=== PATIENT | female | born 1930 | race Caucasian/White ===

== ENCOUNTER 2018-07-01 14:01 | Inpatient (IN) ==
[2018-07-01] MEDS ORDERED: Sod Chloride 0.9% Inj 1,000 ML IV.SIG SCH ×2 (14:30→19:00)
--- NOTE | 2018-07-01 15:02 | XR ---
EXAM DATE: 07/01/2018 2:50 PM EDT AGE/SEX: 88 years / Female INDICATIONS: Short of breath and weakness. CLINICAL DATA: This is the patient's initial encounter. Patient reports that signs and symptoms have been present for 2 days and indicates a pain score of 0/10. MEDICAL/SURGICAL HISTORY: . Cerebral vascular accident. None. COMPARISON: No prior exams available for comparison. FINDINGS: A single AP view of the chest demonstrates the lungs to be symmetrically hypoinflated without evidenc e of mass, infiltrate or effusion. The cardiomediastinal contours are unremarkable. Osseous structu res are intact. CONCLUSION: The lungs are hypoinflated but grossly clear. No acute abnormality seen. Electronically signed by: Theresa Cuellar MD 07/01/2018 3:00 PM EDT
--- NOTE | 2018-07-01 15:15 | CT ---
EXAM DATE: 07/01/2018 3:09 PM EDT AGE/SEX: 88 years / Female INDICATIONS: Altered mental status. Possible syncopal episode today. CLINICAL DATA: This is the patient's initial encounter. Patient reports that signs and symptoms have been present for 1 day and indicates a pain score of 0/10. MEDICAL/SURGICAL HISTORY: Cardiovascular disease. Stroke. None. RADIATION DOSE: 56.35 CTDI (mGy) COMPARISON: No prior exams available for comparison. TECHNIQUE: CT of the head without contrast. Using automated exposure control and adjustment of the mA and/or kV according to patient size, radiation dose was kept as low as reasonably achievable to ob tain optimal diagnostic quality images. DICOM format image data is available electronically for revi ew and comparison. FINDINGS: Cerebrum: The ventricles are normal for age. No evidence of midline shift, mass lesion, hemorrhage or acute infarction. No extraaxial fluid collections are seen. Extensive white matter atrophic roth es are seen with periventricular hypointensities likely reflecting chronic small vessel ischemic reed ge. Posterior Fossa: The cerebellum and brainstem are intact. The 4th ventricle is midline. The cerebe llopontine angle is unremarkable. Extracranial: The visualized portion of the orbits is intact. Skull: The calvaria is intact. No evidence of skull fracture. CONCLUSION: 1. No acute abnormality. Extensive white matter atrophic changes. . Electronically signed by: Theresa Cuellar MD 07/01/2018 3:14 PM EDT
[2018-07-01 15:25] LABS: Activated Partial Thrombo Time 20.8 sec (24.3-30.1); INR 1.1 Ratio
[2018-07-01 15:26] LABS: Baso # (Auto) 0.1 th/mm3 (0.0-0.2); Baso % (Auto) 0.5 % (0.0-2.0); Eos # (Auto) 0.1 th/mm3 (0.0-0.4); Eos % (Auto) 1.1 % (0.0-4.0); Hematocrit 36.8 % (35.0-46.0); Hemoglobin 11.8 gm/dL (11.6-15.3); Lymph # (Auto) 3.7 th/mm3 (1.0-4.8); Mean Corpuscular HGB Conc 31.9 % (32.0-36.0); Mean Corpuscular Hemoglobin 31.4 pg (27.0-34.0); Mean Corpuscular Volume 98.5 fL (80.0-100.0); Mean Platelet Volume 9.4 fL (7.0-11.0); Mono # (Auto) 0.4 th/mm3 (0.0-0.9); Neut # (Auto) 6.3 th/mm3 (1.8-7.7); Neut % (Auto) 59.4 % (16.0-70.0); Platelet Count 174 th/mm3 (150-450); Red Blood Count 3.74 mil/mm3 (4.00-5.30); Red Cell Distribution Width 20.1 % (11.6-17.2); White Blood Count 10.7 th/mm3 (4.0-11.0)
[2018-07-01 15:30] LABS: Prothrombin Time 10.7 sec (9.8-11.6)
[2018-07-01 16:02] LABS: Alanine Aminotransferase 83 U/L (10-53); Albumin 3.3 g/dL (3.4-5.0); Alkaline Phosphatase 123 U/L (45-117); Anion Gap 15 meq/L (5-15); Aspartate Aminotransferase 173 U/L (15-37); Blood Urea Nitrogen 20 mg/dL (7-18); Carbon Dioxide 19.9 meq/L (21.0-32.0); Chloride 109 meq/L (98-107); Glomerular Filtration Rate 41 mL/min (>89); Glucose,Random 232 mg/dL (74-106); Potassium 3.5 meq/L (3.5-5.1); Sodium 144 meq/L (136-145); Total Protein 7.3 g/dL (6.4-8.2)
[2018-07-01 16:08] LABS: Creatine Kinase 44 U/L (26-192)
[2018-07-01 16:29] LABS: Bilirubin,Urine Negative (Negative); Clarity,Urine Hazy (Clear); Color,Urine Yellow (Yellw/Straw); Glucose,Urine (UA) 50 mg/dL (Negative); Leukocyte Esterase,Urine Negative (Negative); Mucus,Urine Few /lpf (Occasional); Nitrite,Urine Negative (Negative); Specific Gravity,Urine 1.016 (1.002-1.035); Squamous Epithelial Cell,Urine <1 /hpf (0-5)
--- NOTE | 2018-07-01 19:08 | ED ---
HPI General Chief Complaint: Syncope Stated Complaint: Medical Time Seen by Provider: 07/01/18 14:24 Source: patient and family Mode of arrival: EMS Limitations: no limitations History of Present Illness HPI narrative: 88-year-old female was brought in by EMS for syncope. Patient states that she was outside all day today and got into a hot tub this afternoon. Patient states that she had a syncopal episode after getting out of the hot tub this afternoon. Patient denies any injury from the syncope episode. Patient denies any headache. Patient denies any chest pain or shortness of breath. Patient denies abdominal pain. Patient denies any focal weakness or numbness of extremity. Patient status post CVA in the past. Patient has other medical problems she does not know the nature of her medical problems. Patient states that she on a lot of medications she does not know the name of the medications. Patient states that her blood pressure has been low recently. Patient states that her blood sugar has been high recently however she does not like to take the medication for that. Patient denies any alcohol or drug abuse. Patient states that she has not been drinking all day today. Patient states that she had some small amount of tea this morning. Patient did not eat breakfast or lunch today. complaint: loss of consciousness Onset (ago): minute(s) Prodromal symptoms: none Witnessed: yes - by bystander Context: standing up Injuries sustained associated with event: none Current symptoms: none Treatments prior to arrival: none Related Data Home Medications Medication Instructions Recorded Confirmed aspirin [Aspir-81] 81 mg PO DAILY 07/01/18 07/01/18 cholecalciferol (vitamin D3) 07/01/18 [Vitamin D3] famotidine [Pepcid] 20 mg PO DAILY 07/01/18 07/01/18 folic acid 1 mg PO DAILY 07/01/18 07/01/18 levothyroxine 50 mcg PO DAILY 07/01/18 07/01/18 mirtazapine 15 mg PO DAILY 07/01/18 07/01/18 pantoprazole [Protonix] 40 mg PO DAILY 07/01/18 07/01/18 potassium chloride 8 meq PO DAILY 07/01/18 07/01/18 prednisone 07/01/18 Allergies Allergy/AdvReac Type Severity Reaction Status Date / Time Penicillins Allergy Severe Rash Verified 07/01/18 14:28 Review of Systems ROS: all other systems reviewed are negative PMFSH Medical History Medical History CVA (cerebral vascular accident) (Acute) Heart murmur (Acute) Social History Social History Substance History: No History of Abuse Smoking Status: Never smoker How Often Do You Have a Drink Containing Alcohol: Monthly or less Recent Travel in [facility] within the Last 8 Weeks: Yes Recent Out of Country Travel within the Last 8 Weeks: No Immunization History Tetanus Immunization: <5 Years Exam Narrative Exam Narrative: GENERAL: Well-nourished, well-developed patient. SKIN: Focused skin assessment warm/dry. HEAD: Normocephalic. EYES: No scleral icterus. No injection or drainage. NECK: Supple, trachea midline. No JVD or lymphadenopathy. CARDIOVASCULAR: Regular rate and rhythm without murmurs, gallops, or rubs. RESPIRATORY: Breath sounds equal bilaterally. No accessory muscle use. GASTROINTESTINAL: Abdomen soft, non-tender, nondistended. MUSCULOSKELETAL: No cyanosis, or edema. BACK: Nontender without obvious deformity. No CVA tenderness. Neurologic exam normal. Course Initial Documented Vital Signs Temperature 97.7 F 07/01/18 14:28 Pulse Rate 128 H 07/01/18 14:28 Respiratory Rate 20 07/01/18 14:28 Blood Pressure 115/85 07/01/18 14:28 Pulse Oximetry 86 L 07/01/18 14:28 Last Documented Vital Signs Temperature 97.7 F 07/01/18 14:28 Pulse Rate 128 H 07/01/18 14:28 Respiratory Rate 20 07/01/18 14:28 Blood Pressure 115/85 07/01/18 14:28 Pulse Oximetry 86 L 07/01/18 14:28 Sign Out Sign Out Data: Patient Sign Out occurred on 07/01/18 at 20:02. Patient's care was discussed, and care was transferred from Siddhartha Cabrales to Otis Granados MD. Sign Out Comment: Check orthostatic vital signs prior to discharge. Patient with syncope and orthostatic hypotension. Patient was given 2 L IV fluid. Last updated by Siddhartha Cabrales MD at 07/01/18 19:19 Post-Handoff Eval: The patient was evaluated by Dr. Cabrales and signed out to me at approximately 7: 00 PM at the beginning of my shift to follow-up with repeat vital signs after a second liter of normal saline was given to the patient. On my assessment the patient is awake and alert and is feeling well. She is normotensive and would like to go home. She apparently had a syncopal episode today after being taken out of the hot tub. She is here with her daughter and they are from out of town , returning to their home state tomorrow. Because of this they would like to go home. Basic labs and imaging studies are essentially unremarkable. She actually has an appointment with a hospice volunteer in 3 days. They understand that there are risks to being discharged and I prefer that the patient be admitted for overnight observation for further evaluation of her syncopal episode, however they prefer to go home. Patient will be discharged home with strict return instructions. With the patient and the patient's daughter verbalized understanding and agreement with plan. Upon attempting to discharge the patient she had a brief syncopal episode while transferring into the wheelchair. After this episode she has agreed to stay overnight for further telemetry monitoring and likely echocardiogram. Case discussed with medical residents. The patient will be admitted to their service under Dr. Jiménez. Medical Decision Making MDM Narrative Medical decision making narrative: 88-year-old female with syncope. Patient has not eaten much or drinking much ordered today. Patient did not injure himself during the syncopal episode. Patient's positive orthostatic hypotension. Normal saline solution 2 L IV bolus given. Medical Screen Exam Complete: Yes Emergency Medical Condition: Yes Differential Diagnosis Differential Diagnosis: Differential diagnosis including orthostatic syncope, vasovagal reaction, dehydration, electrolyte imbalance, TIA, CVA. Lab Data Result diagrams: 07/01/18 14:45 07/01/18 14:45 Lab Results 07/01/18 07/01/18 07/01/18 Range/Units 14:45 14:45 14:45 WBC 10.7 (4.0-11.0) th/mm3 RBC 3.74 L (4.00-5.30) mil/mm3 Hgb 11.8 (11.6-15.3) gm/dL Hct 36.8 (35.0-46.0) % MCV 98.5 (80.0-100.0) fL MCH 31.4 (27.0-34.0) pg MCHC 31.9 L (32.0-36.0) % RDW 20.1 H (11.6-17.2) % Plt Count 174 (150-450) th/mm3 MPV 9.4 (7.0-11.0) fL Neut % (Auto) 59.4 (16.0-70.0) % Lymph % (Auto) 35.0 (9.0-44.0) % Gregory % (Auto) 4.0 (0.0-8.0) % Eos % (Auto) 1.1 (0.0-4.0) % Baso % (Auto) 0.5 (0.0-2.0) % Neut # (Auto) 6.3 (1.8-7.7) th/mm3 Lymph # (Auto) 3.7 (1.0-4.8) th/mm3 Gregory # (Auto) 0.4 (0.0-0.9) th/mm3 Eos # (Auto) 0.1 (0.0-0.4) th/mm3 Baso # (Auto) 0.1 (0.0-0.2) th/mm3 WBC Differential . Differential Comment Auto diff final PT 10.7 (9.8-11.6) sec INR 1.1 Ratio APTT 20.8 L (24.3-30.1) sec Sodium 144 (136-145) meq/L Potassium 3.5 (3.5-5.1) meq/L Chloride 109 H (98-107) meq/L Carbon Dioxide 19.9 L (21.0-32.0) meq/L Anion Gap 15 (5-15) meq/L BUN 20 H (7-18) mg/dL Creatinine 1.24 H (0.50-1.00) mg/dL Estimated GFR 41 L (>89) mL/min Random Glucose 232 H (74-106) mg/dL Calcium 8.0 L (8.5-10.1) mg/dL Total Bilirubin 0.7 (0.2-1.0) mg/dL AST 173 H (15-37) U/L ALT 83 H (10-53) U/L Alkaline Phosphatase 123 H (45-117) U/L Total Creatine Kinase 44 (26-192) U/L Troponin I Less than 0.02 L (0.02-0.05) ng/mL Total Protein 7.3 (6.4-8.2) g/dL Albumin 3.3 L (3.4-5.0) g/dL TSH 1.950 (0.358-3.740) uIU/mL Urine Color (Yellw/Straw) Urine Clarity (Clear) Urine pH (5.0-8.5) Ur Specific Witt (1.002-1.035) Urine Protein (Neg-Trace) mg/dL Urine Glucose (UA) (Negative) mg/dL Urine Ketones (Negative) mg/dL Urine Occult Blood (Negative) Urine Nitrate (Negative) Urine Bilirubin (Negative) Urine Urobilinogen (Less than 2) mg/dL Ur Leukocyte Esterase (Negative) Urine WBC (0-5) /hpf Ur Squamous Epith Cells (0-5) /hpf Urine Mucus (Occasional) /lpf Micro UA Comment Ur Microscopic Review Urine Culture Comments 07/01/18 Range/Units 16:15 WBC (4.0-11.0) th/mm3 RBC (4.00-5.30) mil/mm3 Hgb (11.6-15.3) gm/dL Hct (35.0-46.0) % MCV (80.0-100.0) fL MCH (27.0-34.0) pg MCHC (32.0-36.0) % RDW (11.6-17.2) % Plt Count (150-450) th/mm3 MPV (7.0-11.0) fL Neut % (Auto) (16.0-70.0) % Lymph % (Auto) (9.0-44.0) % Gregory % (Auto) (0.0-8.0) % Eos % (Auto) (0.0-4.0) % Baso % (Auto) (0.0-2.0) % Neut # (Auto) (1.8-7.7) th/mm3 Lymph # (Auto) (1.0-4.8) th/mm3 Gregory # (Auto) (0.0-0.9) th/mm3 Eos # (Auto) (0.0-0.4) th/mm3 Baso # (Auto) (0.0-0.2) th/mm3 WBC Differential Differential Comment PT (9.8-11.6) sec INR Ratio APTT (24.3-30.1) sec Sodium (136-145) meq/L Potassium (3.5-5.1) meq/L Chloride (98-107) meq/L Carbon Dioxide (21.0-32.0) meq/L Anion Gap (5-15) meq/L BUN (7-18) mg/dL Creatinine (0.50-1.00) mg/dL Estimated GFR (>89) mL/min Random Glucose (74-106) mg/dL Calcium (8.5-10.1) mg/dL Total Bilirubin (0.2-1.0) mg/dL AST (15-37) U/L ALT (10-53) U/L Alkaline Phosphatase (45-117) U/L Total Creatine Kinase (26-192) U/L Troponin I (0.02-0.05) ng/mL Total Protein (6.4-8.2) g/dL Albumin (3.4-5.0) g/dL TSH (0.358-3.740) uIU/mL Urine Color Yellow (Yellw/Straw) Urine Clarity Hazy H (Clear) Urine pH 5.0 (5.0-8.5) Ur Specific Witt 1.016 (1.002-1.035) Urine Protein 100 H (Neg-Trace) mg/dL Urine Glucose (UA) 50 (Negative) mg/dL Urine Ketones Negative (Negative) mg/dL Urine Occult Blood Negative (Negative) Urine Nitrate Negative (Negative) Urine Bilirubin Negative (Negative) Urine Urobilinogen 2.0 H (Less than 2) mg/dL Ur Leukocyte Esterase Negative (Negative) Urine WBC 1 (0-5) /hpf Ur Squamous Epith Cells <1 (0-5) /hpf Urine Mucus Few H (Occasional) /lpf Micro UA Comment Cath-culture not ind Ur Microscopic Review Not Reportable Urine Culture Comments Cath-cult not ind Imaging Data Radiologist's impression: Chest X-Ray 07/01/18 14:28 CONCLUSION: The lungs are hypoinflated but grossly clear. No acute abnormality seen. Head CT 07/01/18 14:28 CONCLUSION: 1. No acute abnormality. Extensive white matter atrophic changes. . Discharge Plan Discharge Disposition Patient Disposition: 30 Still Patient Discharge Condition Condition: Stable Discharge Details Diagnosis: Syncope Physicians Team ED Provider: Otis Granados Primary Care Provider: UNKNOWN, Attending Provider: Vijaya Jiménez Discharge Interventions Interventions: ED Discharge Assessment Last Done: 07/01/18 21:06 Vital Signs Last Done: 07/01/18 14:28 Status ED Status: Admitted Observation Patient
--- NOTE | 2018-07-01 22:05 | P.HPFP ---
History of Present Illness Primary Care Physician: UNKNOWN Chief Complaint: Syncope History of Present Illness: 88 year old F on vacation from [place] with history of CVA x3, most recently 1 month ago, hypothyroidism and rheumatoid arthritis, who presented to the ED for syncopal episode this afternoon just after getting out of a hot tub. Per patient , she felt faint and lightheaded before passing out. She is unsure of how long she lost consciousness, but states it was witnessed. No fall or head trauma. Patient was to be discharged from the ED, but just prior to leaving experienced another syncopal episode while transferring from bed to wheelchair, stating that she felt weak all over and nauseated. Denies current headache, lightheadedness, nausea, vomiting, rapid heart rate, CP, shortness of breath, numbness or tingling. Denies recent fevers, sinus pain, nasal congestion, runny nose, sore throat, diarrhea or dysuria. Patient has a chronic urinary incontinence. Patient is vacationing in [place], from [place] and is adamant that she cannot miss her flight back home tomorrow at 11AM. Patient is willing to stay in the hospital overnight for further observation and testing, but notes that she will be leaving in time for her flight. She is scheduled to she her PCP, Dr. Agus Aleman and director craft center in [place] in the coming week. Per patient, she is supposed to be getting worked up for possible unspecified heart murmur. She has a history of CVA x3 with, most recently 1 month ago. She states that she experienced significant weakness in bilateral upper and lower extremities and slurred speech. Underwent extensive PT/OT/speech therapy following most recent stroke. She states that today's symptoms do not feel like past CVA. 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 Update: 07/01/18 at 23:15pm Paged by [employer] who stated that patient is refusing to undergo carotid US. Spoke to patient, who states that she "just doesn't think she needs any of this done", however she is agreeable to stay in the hospital overnight. She states that she "has a history of arthritis", has gotten imaging of the neck 2 times in the last year back in [place] and does not believe that her insurance will pay for this testing. She states that she is apparently scheduled to get similar testing done at next doctor's appointment, therefore doesn't need imaging of her neck. I explained to her that the carotid ultrasound is to evaluate the blood vessels of the neck for plaques or clot that could be causing syncopal episodes, rather than structural components of the neck associated with arthritis. Patient voiced understanding about risks and benefits of getting carotid US, but continues to decline examination at this time. She continues to be concerned about missing her flight tomorrow morning states that she "will be getting all of this testing done at her upcoming doctor 's appointments, so she doesn't need it done in the hospital today". She states that she is agreeable to further blood testing and EKG as necessary, but also states that she does not want to be bothered for the rest of the night. - Diagnosis (1) Syncope (2) ARGELIA (acute kidney injury) (3) Hypothyroidism (4) History of CVA (cerebrovascular accident) (5) History of cardiac murmur (6) History of gastroesophageal reflux (GERD) (7) Nutrition, metabolism, and development symptoms (8) DVT prophylaxis Review of Systems Constitutional: Reports weakness (associated with syncopal episodes, now resolved), Denies chills, Denies fever(s) Eyes: Reports requires corrective lenses, Denies change in vision Ears, Nose, Mouth, and Throat: Denies headache(s), Denies nasal congestion, Denies nasal discharge, Denies sinus pain, Denies sinus pressure, Denies sore throat Cardiovascular: Reports fainting, Denies chest pain, Denies fast heart rate, Denies irregular heart rhythm, Denies shortness of breath Respiratory: Denies cough, Denies shortness of breath Gastrointestinal: Reports nausea, Denies abdominal pain, Denies constipation, Denies loose stools, Denies vomiting Genitourinary: Reports urinary incontinence (chronic), Denies blood in urine, Denies painful urination Musculoskeletal: Reports body aches (due to arthritis) Neurologic: Denies abnormal speech, Denies tingling/numbness/burning sensations PMFSH - History History 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, 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 - Medical History Medical History: Medical History (Last Updated 07/02/18 @ 03:14 by Laura Ervin DO, R1) CVA (cerebral vascular accident) Heart murmur History of hysterectomy - Surgical History Surgical History: Surgical History (Last Updated 07/02/18 @ 03:14 by Laura Ervin DO, R1) History of cholecystectomy - Tobacco History Smoking Status: Never smoker - Alcohol History How Often Do You Have a Drink Containing Alcohol: Monthly or less - Substance Use History Substance History: No History of Abuse - Travel History Recent Travel in the [place] Within the Last 8 Weeks: Yes Recent Travel Out of the Country Within the Last 8 Weeks: No - Immunization History Tetanus Immunization: <5 Years Medications and Allergies Active Medications: Active Medications Sodium Chloride (Ns Inj) 1,000 mls @ 0 mls/hr IV.SIG BOLUS ARNULFO Sodium Chloride (Ns Inj) 1,000 mls @ 0 mls/hr IV.SIG BOLUS ARNULFO Allergies Allergy/AdvReac Type Severity Reaction Status Date / Time Penicillins Allergy Severe Rash Verified 07/01/18 14:28 Home Medications Medication Instructions Recorded Confirmed Type aspirin [Aspir-81] 81 mg PO DAILY 07/01/18 07/01/18 History cholecalciferol (vitamin D3) 07/01/18 History [Vitamin D3] famotidine [Pepcid] 20 mg PO DAILY 07/01/18 07/01/18 History folic acid 1 mg PO DAILY 07/01/18 07/01/18 History levothyroxine 50 mcg PO DAILY 07/01/18 07/01/18 History mirtazapine 15 mg PO DAILY 07/01/18 07/01/18 History pantoprazole [Protonix] 40 mg PO DAILY 07/01/18 07/01/18 History potassium chloride 8 meq PO DAILY 07/01/18 07/01/18 History prednisone 07/01/18 History Exam Vital signs: Vital Signs 07/01/18 14:28 Temperature 97.7 F Pulse Rate 128 H Respiratory Rate 20 Blood Pressure 115/85 Pulse Oximetry 86 L Intake & Output 07/01/18 07/01/18 07/02/18 06:59 18:59 06:59 Weight 55.792 kg Narrative: GENERAL: 80-year-old female lying comfortably in bed in [facility]. HEENT: NCAT, EOMI, PERRLA. no scleral icterus, or conjunctival injection. MMM. Airway patent. NECK: Supple, no meningeal signs. No JVD, or carotid bruits. No LAD. CV: Irregular rhythm. S1 S2. CHEST/PULM: CTAB. No crackles, wheezes or rhonchi. ABD/GI: +BS in all 4 quadrants. Soft, nontender, and nondistended. EXT: No significant edema. NEURO: A&O 3. Follows all commands. Normal muscle tone. Muscle strength 5/5 in upper extremities, 4+/5 in bilateral lower extremities due to pain from arthritis. Cranial nerves grossly intact. SKIN: No rashes, no jaundice. PSYCH: Mood and affect are appropriate. Speech fluent. Does not appear to respond to internal stimuli. Results - Labs Result diagrams: 07/01/18 14:45 07/01/18 14:45 Abnormal lab results 07/01/18 07/01/18 07/01/18 Range/Units 14:45 14:45 14:45 RBC 3.74 L (4.00-5.30) mil/mm3 MCHC 31.9 L (32.0-36.0) % RDW 20.1 H (11.6-17.2) % APTT 20.8 L (24.3-30.1) sec Chloride 109 H (98-107) meq/L Carbon Dioxide 19.9 L (21.0-32.0) meq/L BUN 20 H (7-18) mg/dL Creatinine 1.24 H (0.50-1.00) mg/dL Estimated GFR 41 L (>89) mL/min Random Glucose 232 H (74-106) mg/dL Calcium 8.0 L (8.5-10.1) mg/dL AST 173 H (15-37) U/L ALT 83 H (10-53) U/L Alkaline Phosphatase 123 H (45-117) U/L Troponin I Less than 0.02 L (0.02-0.05) ng/mL Albumin 3.3 L (3.4-5.0) g/dL Urine Clarity (Clear) Urine Protein (Neg-Trace) mg/dL Urine Urobilinogen (Less than 2) mg/dL Urine Mucus (Occasional) /lpf 07/01/18 Range/Units 16:15 RBC (4.00-5.30) mil/mm3 MCHC (32.0-36.0) % RDW (11.6-17.2) % APTT (24.3-30.1) sec Chloride (98-107) meq/L Carbon Dioxide (21.0-32.0) meq/L BUN (7-18) mg/dL Creatinine (0.50-1.00) mg/dL Estimated GFR (>89) mL/min Random Glucose (74-106) mg/dL Calcium (8.5-10.1) mg/dL AST (15-37) U/L ALT (10-53) U/L Alkaline Phosphatase (45-117) U/L Troponin I (0.02-0.05) ng/mL Albumin (3.4-5.0) g/dL Urine Clarity Hazy H (Clear) Urine Protein 100 H (Neg-Trace) mg/dL Urine Urobilinogen 2.0 H (Less than 2) mg/dL Urine Mucus Few H (Occasional) /lpf Short CBC 07/01/18 Range/Units 14:45 WBC 10.7 (4.0-11.0) th/mm3 Hgb 11.8 (11.6-15.3) gm/dL Hct 36.8 (35.0-46.0) % Plt Count 174 (150-450) th/mm3 BMP 07/01/18 14:45 Sodium 144 Potassium 3.5 Chloride 109 H Carbon Dioxide 19.9 L BUN 20 H Creatinine 1.24 H Calcium 8.0 L Cardiac Enzymes 07/01/18 Range/Units 14:45 Total Creatine Kinase 44 (26-192) U/L Troponin I Less than 0.02 L (0.02-0.05) ng/mL Liver Function 07/01/18 Range/Units 14:45 Total Bilirubin 0.7 (0.2-1.0) mg/dL AST 173 H (15-37) U/L ALT 83 H (10-53) U/L Alkaline Phosphatase 123 H (45-117) U/L Albumin 3.3 L (3.4-5.0) g/dL Urine 07/01/18 Range/Units 16:15 Urine Color Yellow (Yellw/Straw) Urine Clarity Hazy H (Clear) Urine pH 5.0 (5.0-8.5) Ur Specific [place] 1.016 (1.002-1.035) Urine Protein 100 H (Neg-Trace) mg/dL Urine Glucose (UA) 50 (Negative) mg/dL - Imaging Impressions Chest X-Ray 07/01/18 14:28 CONCLUSION: The lungs are hypoinflated but grossly clear. No acute abnormality seen. Head CT 07/01/18 14:28 CONCLUSION: 1. No acute abnormality. Extensive white matter atrophic changes. . Caprini VTE Risk Assessment Caprini VTE Risk Assessment: Moderate/High Risk (score >= 2) Caprini Risk Assessment Model: Point Value = 1 Point Value = 2 Point Value = 3 Point Value = 5 Age 41-60 Minor surgery BMI > 25 kg/m2 Swollen legs Varicose veins or History of unexplained or recurrent spontaneous Oral contraceptives or hormone replacement Sepsis (< 1 month) Serious lung disease, including pneumonia (< 1 month) Abnormal pulmonary function Acute myocardial infarction Congestive heart failure (< 1 month) History of inflammatory bowel disease Medical patient at bed rest Age 61-74 Arthroscopic surgery Major open surgery (> 45 min) Laparoscopic surgery (> 45 min) Malignancy Confined to bed (> 72 hours) Immobilizing plaster cast Central venous access Age >= 75 History of VTE Family history of VTE Factor V Leiden Prothrombin [id number] Lupus anticoagulant Anticardiolipin antibodies Elevated serum homocysteine Heparin-induced thrombocytopenia Other congenital or acquired thrombophilia Stroke (< 1 month) Elective arthroplasty Hip, pelvis, or leg fracture Acute spinal cord injury (< 1 month) Prophylaxis Regimen: Total Risk Factor Score Risk Level Prophylaxis Regimen 0-1 Low Early ambulation 2 Moderate Order ONE of the following: *Sequential Compression Device (SCD) *Heparin 5000 units SQ BID 3-4 Higher Order ONE of the following medications: *Heparin 5000 units SQ TID *Enoxaparin/Lovenox 40 mg SQ daily (WT < 150 kg, CrCl > 30 mL/min) *Enoxaparin/Lovenox 30 mg SQ daily (WT < 150 kg, CrCl > 10-29 mL/min) *Enoxaparin/Lovenox 30 mg SQ BID (WT < 150 kg, CrCl > 30 mL/min) AND/OR *Sequential Compression Device (SCD) 5 or more Highest Order ONE of the following medications: *Heparin 5000 units SQ TID (Preferred with Epidurals) *Enoxaparin/Lovenox 40 mg SQ daily (WT < 150 kg, CrCl > 30 mL/min) *Enoxaparin/Lovenox 30 mg SQ daily (WT < 150 kg, CrCl > 10-29 mL/min) *Enoxaparin/Lovenox 30 mg SQ BID (WT < 150 kg, CrCl > 30 mL/min) AND *Sequential Compression Device (SCD) Assessment and Plan - Assessment (1) Syncope Code(s): R55 - Syncope and collapse Status: Acute Plan: 88-year-old presenting to the ED following syncopal episode earlier this afternoon and admitted for observation due to second syncopal episode just prior to emergency department discharge. CBC in ED showed no signs of anemia, or electrolyte imbalances. Urine analysis negative for UTI. EKG showed sinus tachycardia with a heart rate of 119, multiple PVCs and Q waves in leads II, III and aVF consistent with prior inferior MA. Labs: -Serial troponin, CK-MB, and EKG ordered. -RPR screen ordered -Vitamin B12 level ordered -Repeat CBC and CMP ordered for AM Imaging: -CXR showed hypoinflated lungs that are grossly clear without acute pulmonary disease. -CT head showed extensive white matter atrophic changes without evidence of midline shift, mass lesion, hemorrhage, or acute infarction. -Carotid ultrasound ordered Medications: -Tylenol 650 mg p.o. every 4 hours as needed for pain -Zofran 4 mg IV every 6 hours as needed for nausea Orthostatic blood pressure ordered (2) ARGELIA (acute kidney injury) Code(s): N17.9 - Acute kidney failure, unspecified Status: Acute Plan: BUN 20 and creatinine 1.24 on admission. Likely due to mild dehydration. Patient given to 1 L boluses of NS in the ED. -IVF at 110 mls/hr ordered -Will follow-up CMP in a.m. (3) Hypothyroidism Code(s): E03.9 - Hypothyroidism, unspecified Status: Acute Plan: Patient with history of hypothyroidism on levothyroxine. -will continue home levothyroxine 50 mcg p.o. daily (4) History of CVA (cerebrovascular accident) Code(s): Z86.73 - Personal history of transient ischemic attack (TIA), and cerebral infarction without residual deficits Status: Acute Plan: Patient with history of CVA 3, most recent one month ago. Patient underwent extensive physical therapy following CVA and notes minimal neurological deficits currently. -Continue home aspirin 81 mg p.o. daily (5) History of cardiac murmur Code(s): Z86.79 - Personal history of other diseases of the circulatory system Status: Acute Plan: Patient has a history of unspecified heart murmur. Patient to be seen by director craft center in [place] within the next week for further workup. No murmur heard on clinical exam however patient's rhythm was irregular. (6) History of gastroesophageal reflux (GERD) Code(s): Z87.19 - Personal history of other diseases of the digestive system Status: Acute Plan: Patient with history of reflux, on famotidine and pantoprazole at home. -Continue home pantoprazole 40 mg p.o. daily -Hold home famotidine 20 mg p.o. daily (7) Nutrition, metabolism, and development symptoms Code(s): R63.8 - Other symptoms and signs concerning food and fluid intake Status: Acute Plan: Diet: Full liquid diet Electrolytes: No significant electrolyte abnormalities at this time, continue to monitor and replete as necessary Fluids: NS 110 mls/hr IV (8) DVT prophylaxis Status: Acute Plan: DVT prophylaxis: SCDs - Assessment and Plan Patient admitted for overnight observation due to second syncopal episode just prior to discharge from the ED. Patient is adamant about making her 11 AM flight from [facility] back to home in [place], but is agreeable to overnight stay in hospital for further testing. (1) Syncope Qualifiers: Syncope type: unspecified Qualified Code(s): R55 - Syncope and collapse
[2018-07-01] MEDS ORDERED: Acetaminophen 325 MG Tablet PO PRN (22:34)
[2018-07-01] MEDS ORDERED: Bisacodyl 10 MG Supp RECTAL PRN (22:34)
[2018-07-02] MEDS: Sod Chloride 0.9% Inj 1,000 ML IV.CONT SCH ×3 (00:23→11:27)
[2018-07-02 02:17] LABS: Troponin I 0.1 ng/mL (0.02-0.05)
[2018-07-02 06:26] LABS: Troponin I 0.15 ng/mL (0.02-0.05)
[2018-07-02] MEDS: Levothyroxine 50 MCG Tablet PO SCH (07:23)
--- NOTE | 2018-07-02 07:34 | P.PNFP ---
Subjective Interval history: This note is written in conjunction with resident H&P dated 07/01/2018. Catherine Hart is an 88yo lady with h/o stroke admitted for syncopal episodes - one while getting out of a hot tub yesterday and one while transitioning from bed to wheelchair in the ED. Overnight, she declined carotid US examination or further interventions. Orthostatic blood pressures were reassuring. This morning, she reports she is feeling fine. She is seen with her daughter at bedside. She denies SOB, cough, chest pain. She is requiring O2 at 2lpm to maintain O2 sats. She has not yet gotten out of bed. Daughter reports that patient has appt with PCP on Tuesday and cardiology ( first appt to establish) on . Additional information: Family history: Daughter and parents with diabetes. Results - Labs Result diagrams: 07/02/18 07:37 07/02/18 07:37 Abnormal lab results 07/01/18 07/01/18 07/01/18 Range/Units 14:45 14:45 14:45 RBC 3.74 L (4.00-5.30) mil/mm3 MCHC 31.9 L (32.0-36.0) % RDW 20.1 H (11.6-17.2) % APTT 20.8 L (24.3-30.1) sec Chloride 109 H (98-107) meq/L Carbon Dioxide 19.9 L (21.0-32.0) meq/L BUN 20 H (7-18) mg/dL Creatinine 1.24 H (0.50-1.00) mg/dL Estimated GFR 41 L (>89) mL/min Random Glucose 232 H (74-106) mg/dL Calcium 8.0 L (8.5-10.1) mg/dL AST 173 H (15-37) U/L ALT 83 H (10-53) U/L Alkaline Phosphatase 123 H (45-117) U/L Troponin I Less than 0.02 L (0.02-0.05) ng/mL Albumin 3.3 L (3.4-5.0) g/dL Urine Clarity (Clear) Urine Protein (Neg-Trace) mg/dL Urine Urobilinogen (Less than 2) mg/dL Urine Mucus (Occasional) /lpf 07/01/18 07/02/18 07/02/18 Range/Units 16:15 01:45 05:30 RBC (4.00-5.30) mil/mm3 MCHC (32.0-36.0) % RDW (11.6-17.2) % APTT (24.3-30.1) sec Chloride (98-107) meq/L Carbon Dioxide (21.0-32.0) meq/L BUN (7-18) mg/dL Creatinine (0.50-1.00) mg/dL Estimated GFR (>89) mL/min Random Glucose (74-106) mg/dL Calcium (8.5-10.1) mg/dL AST (15-37) U/L ALT (10-53) U/L Alkaline Phosphatase (45-117) U/L Troponin I 0.10 H 0.15 H (0.02-0.05) ng/mL Albumin (3.4-5.0) g/dL Urine Clarity Hazy H (Clear) Urine Protein 100 H (Neg-Trace) mg/dL Urine Urobilinogen 2.0 H (Less than 2) mg/dL Urine Mucus Few H (Occasional) /lpf Short CBC 07/01/18 Range/Units 14:45 WBC 10.7 (4.0-11.0) th/mm3 Hgb 11.8 (11.6-15.3) gm/dL Hct 36.8 (35.0-46.0) % Plt Count 174 (150-450) th/mm3 BMP 07/01/18 14:45 Sodium 144 Potassium 3.5 Chloride 109 H Carbon Dioxide 19.9 L BUN 20 H Creatinine 1.24 H Calcium 8.0 L Cardiac Enzymes 07/01/18 07/02/18 07/02/18 Range/Units 14:45 01:45 05:30 Total Creatine Kinase 44 62 46 (26-192) U/L Troponin I Less than 0.02 L 0.10 H 0.15 H (0.02-0.05) ng/mL Liver Function 07/01/18 Range/Units 14:45 Total Bilirubin 0.7 (0.2-1.0) mg/dL AST 173 H (15-37) U/L ALT 83 H (10-53) U/L Alkaline Phosphatase 123 H (45-117) U/L Albumin 3.3 L (3.4-5.0) g/dL Urine 07/01/18 Range/Units 16:15 Urine Color Yellow (Yellw/Straw) Urine Clarity Hazy H (Clear) Urine pH 5.0 (5.0-8.5) Ur Specific [place] 1.016 (1.002-1.035) Urine Protein 100 H (Neg-Trace) mg/dL Urine Glucose (UA) 50 (Negative) mg/dL - Imaging Impressions Chest X-Ray 07/01/18 14:28 CONCLUSION: The lungs are hypoinflated but grossly clear. No acute abnormality seen. Head CT 07/01/18 14:28 CONCLUSION: 1. No acute abnormality. Extensive white matter atrophic changes. . Physical Exam Vital signs: Vital Signs 07/01/18 14:28 07/02/18 00:00 07/02/18 04:00 Temperature 97.7 F 98 F 97.9 F Pulse Rate 128 H 73 63 Respiratory Rate 20 16 18 Blood Pressure 115/85 107/60 102/50 L Pulse Oximetry 86 L 88 L 88 L Intake & Output 07/01/18 07/02/18 07/02/18 18:59 06:59 18:59 Intake Total 1480 / 1480 Balance 1480 / 1480 Weight 55.792 kg 56 kg Intake: IV 1000 / 1000 NS Inj 1,000 ML @ 110 mls/hr IV 0 / 0 .CONT .[id number] ARNULFO Rx#:[id number] NS Inj 1,000 ML @ Wide Open IV. 1000 / 1000 SIG BOLUS ARNULFO Rx#:[id number] Oral 480 / 480 Other: # Voids 2 Date of Last Bowel Movement 07/01/18 Weight On Admission 55.792 kg Narrative: Per resident H&P. Significant for: In NAD, no resp distress, nontoxic. Talks in complete sentences. Accompanied by daughter. Nasal cannula in place; sats drop to 86% when placed on room air. CTAB, no crackles, no wheezes. PVCs heard during exam. Trace nonpitting edema at ankles; no calf tenderness. 4+/5 weakness on right side, consistent with deficit from recent stroke. Otherwise, neurologic exam WNL. Assessment and Plan - Assessment (1) Syncope Code(s): R55 - Syncope and collapse Status: Resolved Plan: 88-year-old presenting to the ED following syncopal episode after exiting a hot tub earlier this afternoon and admitted for observation due to second syncopal episode just prior to emergency department discharge. CBC in ED showed no signs of anemia, or electrolyte imbalances. Urine analysis negative for UTI. EKG showed sinus tachycardia with a heart rate of 119, multiple PVCs and Q waves in leads II, III and aVF consistent with prior inferior MA. Labs: -Serial troponin, CK-MB, and EKG ordered. Troponins <0.02 --> 0.10 --> 0.15 --> 0.13 this morning. EKG with frequent PVCs; repeat EKG ordered for this morning -Vitamin B12 level WNL -Glucose 232 on admission. Imaging: -CXR showed hypoinflated lungs that are grossly clear without acute pulmonary disease. -CT head showed extensive white matter atrophic changes without evidence of midline shift, mass lesion, hemorrhage, or acute infarction. -Carotid ultrasound ordered but patient declined. Orthostatic blood pressures reassuring PT consulted to eval and treat Medications: -Tylenol 650 mg p.o. every 4 hours as needed for pain -Zofran 4 mg IV every 6 hours as needed for nausea (2) Elevated troponin Code(s): R74.8 - Abnormal levels of other serum enzymes Status: Acute Plan: Pt presented to ER for syncope as described in H&P and below. Troponins <0.02 --> 0.10 --> 0.15 --> 0.13 this morning. EKG with multiple PVCs BNP elevated to 550, and wet read of initial CXR concerning for mild pulmonary vascular congestion. Consider IV lasix, echocardiogram. (3) ARGELIA (acute kidney injury) Code(s): N17.9 - Acute kidney failure, unspecified Status: Acute Plan: BUN 20 and creatinine 1.24 on admission. Likely due to mild dehydration. Patient given to 1 L boluses of NS in the ED. -IVF at 110 mls/hr initially; will saline lock as kidney function has improved. (4) Elevated LFTs Code(s): R94.5 - Abnormal results of liver function studies Status: Acute Plan: Patient with significant elevation of LFTs overnight. AST: 173 --> 701 ALT: 83--> 622 T Bili: 0.7 --> 105 Pt denies any significant alcohol intake (drank 1/2 gay colada during this vacation). Liver US WNL Hepatitis panel WNL. Consider cardiac etiology, given assessment as above. Will monitor LFTs. (5) Hyperglycemia Code(s): R73.9 - Hyperglycemia, unspecified Status: Acute Plan: Patient without a known diagnosis of diabetes, however strong family history. Random glucose >200. Hemoglobin a1c ordered and is pending. (6) Hypothyroidism Code(s): E03.9 - Hypothyroidism, unspecified Status: Chronic Plan: Patient with history of hypothyroidism on levothyroxine. -will continue home levothyroxine 50 mcg PO daily. TSH WNL. (7) History of CVA (cerebrovascular accident) Code(s): Z86.73 - Personal history of transient ischemic attack (TIA), and cerebral infarction without residual deficits Status: Chronic Plan: Patient with history of CVA 3, most recent one month ago. 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 (8) History of cardiac murmur Code(s): Z86.79 - Personal history of other diseases of the circulatory system Status: Chronic Plan: Patient has a history of unspecified heart murmur. Patient to be seen by student recruiter in [place] within the next week for further workup. No murmur heard on clinical exam however patient's rhythm was irregular. Consider echocardiogram, in light of above (9) History of gastroesophageal reflux (GERD) Code(s): Z87.19 - Personal history of other diseases of the digestive system Status: Chronic Plan: Patient with history of reflux, on famotidine and pantoprazole at home. -Continue home pantoprazole 40 mg p.o. daily. -Hold home famotidine 20 mg p.o. daily - Assessment and Plan Patient admitted for overnight observation due to second syncopal episode just prior to discharge from the ED. Patient is adamant about making her 11 AM flight from [facility] back to home in [place], but is agreeable to overnight stay in hospital for further testing. - Attending Attestation Patient seen, examined, and discussed with resident team at approx 0830 this morning. (1) Syncope Qualifiers: Syncope type: unspecified Qualified Code(s): R55 - Syncope and collapse (6) Hypothyroidism Qualifiers: Hypothyroidism type: acquired Qualified Code(s): E03.9 - Hypothyroidism, unspecified
[2018-07-02 07:52] LABS: Baso # (Auto) 0.1 th/mm3 (0.0-0.2); Baso % (Auto) 0.9 % (0.0-2.0); Eos # (Auto) 0.1 th/mm3 (0.0-0.4); Eos % (Auto) 0.7 % (0.0-4.0); Hematocrit 36.7 % (35.0-46.0); Hemoglobin 11.8 gm/dL (11.6-15.3); Lymph # (Auto) 2.8 th/mm3 (1.0-4.8); Lymph % (Auto) 29.4 % (9.0-44.0); Mean Corpuscular HGB Conc 32.2 % (32.0-36.0); Mean Corpuscular Hemoglobin 31.5 pg (27.0-34.0); Mean Corpuscular Volume 97.9 fL (80.0-100.0); Mean Platelet Volume 9.1 fL (7.0-11.0); Mono # (Auto) 0.3 th/mm3 (0.0-0.9); Mono % (Auto) 3.2 % (0.0-8.0); Neut # (Auto) 6.2 th/mm3 (1.8-7.7); Neut % (Auto) 65.8 % (16.0-70.0); Platelet Count 122 th/mm3 (150-450); Red Blood Count 3.75 mil/mm3 (4.00-5.30); Red Cell Distribution Width 19.9 % (11.6-17.2); White Blood Count 9.5 th/mm3 (4.0-11.0)
[2018-07-02 08:25] LABS: Alanine Aminotransferase 622 U/L (10-53); Albumin 3.2 g/dL (3.4-5.0); Alkaline Phosphatase 170 U/L (45-117); Anion Gap 12 meq/L (5-15); Aspartate Aminotransferase 701 U/L (15-37); Blood Urea Nitrogen 20 mg/dL (7-18); Calcium 7.6 mg/dL (8.5-10.1); Carbon Dioxide 19.1 meq/L (21.0-32.0); Chloride 111 meq/L (98-107); Glomerular Filtration Rate 49 mL/min (>89); Glucose,Random 93 mg/dL (74-106); Potassium 4.2 meq/L (3.5-5.1); Sodium 142 meq/L (136-145); Total Protein 6.7 g/dL (6.4-8.2)
--- NOTE | 2018-07-02 09:18 | XR ---
EXAM DATE: 07/02/2018 9:09 AM EDT AGE/SEX: 88 years / Female INDICATIONS: . Atelectasis CLINICAL DATA: This is the patient's subsequent encounter. Patient reports that signs and symptoms h ave been present for 2 days and indicates a pain score of 0/10. MEDICAL/SURGICAL HISTORY: Cardiovascular disease. None. COMPARISON: [facility] – [place], CHEST 1V SINGLE AP, 07/01/2018. . FINDINGS: PA lateral views the chest demonstrate improved aeration of the lungs with no evidence of airspace co nsolidation or pleural effusion. The heart size is normal. Pulmonary vasculature is normal. CONCLUSION: Improved lung exam with no evidence of residual atelectasis or evidence of airspace consolidation. Electronically signed by: Theresa Cuellar MD 07/02/2018 9:17 AM EDT
--- NOTE | 2018-07-02 10:24 | US ---
EXAM DATE: 07/02/2018 10:20 AM EDT AGE/SEX: 88 years / Female INDICATIONS: Elevated liver enzymes. CLINICAL DATA: This is the patient's initial encounter. Patient reports that signs and symptoms have been present for 1 day and indicates a pain score of 6/10. MEDICAL/SURGICAL HISTORY: . Cerebral vascular accident. Heart murmur. Cholecystectomy. Append ectomy. COMPARISON: [facility], CHEST 2V PA&LAT, 07/02/2018. . MEASUREMENTS: Liver:__ 12.5 cm. Common Bile Duct:__ 3mm. Right Kidney:__ 9.0 x 4.1 x 4.1 cm. FINDINGS: Liver: Normal echotexture without focal lesion or ductal dilatation. Portal Vein: Hepatopedal flow seen in portal vein. Common Duct: No intraluminal mass or stone visualized. Gallbladder: Surgically absent. Pancreas: The visualized portions are within normal limits Right Kidney: Normal echotexture and cortical thickness. No mass or hydronephrosis. Other: None. CONCLUSION: 1. No abnormality seen to account for the patient's clinical presentation. Electronically signed by: Theresa Cuellar MD 07/02/2018 10:23 AM EDT
[2018-07-02 10:48] LABS: Hepatitis A IgM Antibody Nonreactive (Nonreactive); Hepatitits B Surface Antigen Nonreactive (Nonreactive)
[2018-07-02 10:53] LABS: Hemoglobin A1c 6.3 % (4.3-6.0)
--- NOTE | 2018-07-02 12:13 | ECG ---
Date Performed: 07/01/2018 Time Performed: 14:28:24 PTAGE: 88 years EKG: SINUS TACHYCARDIA WITH FREQUENT VENTRICULAR PREMATURE COMPLEXES LOW QRS VOLTAGE IN PRECORDI AL LEADS INFERIOR MYOCARDIAL INFARCTION ABNORMAL ECG NO PREVIOUS TRACING DOCTOR: Santos Johnson Interpretating Date/Time 07/02/2018 12:10:32
--- NOTE | 2018-07-02 12:33 | ECG ---
Date Performed: 07/02/2018 Time Performed: 04:44:25 PTAGE: 88 years EKG: Sinus rhythm WITH FREQUENT VENTRICULAR PREMATURE COMPLEXES LOW QRS VOLTAGE POSSIBLE ANTERIOR MYOCARDIAL INFARCTIO N INFERIOR MYOCARDIAL INFARCTION Left axis deviation Since previous tracing, no significant change no carlene ABNORMAL ECG PREVIOUS TRACING : 07/02/2018 01.06 DOCTOR: Santos Johnson Interpretating Date/Time 07/02/2018 12:31:11
--- NOTE | 2018-07-02 13:04 | ECG ---
Date Performed: 07/02/2018 Time Performed: 01:06:08 PTAGE: 88 years EKG: Sinus rhythm WITH FREQUENT VENTRICULAR PREMATURE COMPLEXES LOW QRS VOLTAGE IN PRECORDIAL LEADS POSSIBLE ANTERIOR MYOCARDIAL INFARCTION INFERIOR MYOCARDIAL INFARCTION ABNORMAL ECG PREVIOUS TRACING : 07/01/2018 14.28 Since the previous tracing, no significant change noted DOCTOR: Santos Johnson Interpretating Date/Time 07/02/2018 13:01:56
--- NOTE | 2018-07-02 14:06 | P.PNADD ---
Addendum to Inpatient Note Reason for Addendum: Additional Documentation Additional information: Resident team went to reassess patient at 1:00PM after 20 mg dose of lasix. Patient was sleeping soundly. She reports that she is breathing better. She was not in any pain. She did report blurry vision but unchanged since March. Resp: CTAB
[2018-07-03] MEDS: Levothyroxine 50 MCG Tablet PO SCH (06:21)
[2018-07-03] MEDS ORDERED: MethylPREDNISolone Sod Succinate Inj 40 MG/ML Vial IV.PUSH STA ×2 (11:15)
--- NOTE | 2018-07-03 11:23 | P.PNFP ---
Subjective Interval history: Patient seen and examined bedside. Patient states that she feels the same today and feels okay to go home. She denies any difficulties breathing. Denies any chest pain, shortness of breath, dizziness. However, she has not yet gotten up much to get around. She is now sitting up for breakfast. No fever/chills. No acute events overnight. <Jaelyn Turner - 07/03/18 14:05> Results - Labs Result diagrams: 07/03/18 12:15 07/03/18 11:20 <Vijaya Jiménez - 07/03/18 15:40> Abnormal lab results 07/03/18 07/03/18 07/03/18 Range/Units 11:20 12:15 14:09 RBC 3.48 L (4.00-5.30) mil/mm3 Hgb 11.2 L (11.6-15.3) gm/dL Hct 34.5 L (35.0-46.0) % RDW 19.7 H (11.6-17.2) % Plt Count 111 L (150-450) th/mm3 Platelet Estimate Low L (Normal) PT (9.8-11.6) sec APTT (24.3-30.1) sec BUN 22 H (7-18) mg/dL Creatinine 1.18 H (0.50-1.00) mg/dL Estimated GFR 43 L (>89) mL/min Random Glucose 158 H (74-106) mg/dL Calcium 7.5 L (8.5-10.1) mg/dL Direct Bilirubin 0.3 H (0.0-0.2) mg/dL GGT (5-55) U/L AST 931 H (15-37) U/L ALT 1027 H (10-53) U/L Alkaline Phosphatase 156 H (45-117) U/L B-Natriuretic Peptide 788 H (0-100) pg/mL Total Protein 6.0 L D (6.4-8.2) g/dL Albumin 2.6 L D (3.4-5.0) g/dL Acetaminophen (10.0-30.0) mcg/mL 07/03/18 07/03/18 07/03/18 Range/Units 14:09 14: 14:09 RBC (4.00-5.30) mil/mm3 Hgb (11.6-15.3) gm/dL Hct (35.0-46.0) % RDW (11.6-17.2) % Plt Count (150-450) th/mm3 Platelet Estimate (Normal) PT 11.9 H (9.8-11.6) sec APTT 22.2 L (24.3-30.1) sec BUN (7-18) mg/dL Creatinine (0.50-1.00) mg/dL Estimated GFR (>89) mL/min Random Glucose (74-106) mg/dL Calcium (8.5-10.1) mg/dL Direct Bilirubin 0.3 H (0.0-0.2) mg/dL GGT 435 H (5-55) U/L AST (15-37) U/L ALT (10-53) U/L Alkaline Phosphatase (45-117) U/L B-Natriuretic Peptide (0-100) pg/mL Total Protein (6.4-8.2) g/dL Albumin 3.2 L D (3.4-5.0) g/dL Acetaminophen Less than 2.0 L (10.0-30.0) mcg/mL Short CBC 07/03/18 Range/Units 12:15 WBC 9.8 (4.0-11.0) th/mm3 Hgb 11.2 L (11.6-15.3) gm/dL Hct 34.5 L (35.0-46.0) % Plt Count 111 L (150-450) th/mm3 BMP 07/03/18 11:20 Sodium 141 Potassium 3.7 Chloride 106 Carbon Dioxide 23.1 BUN 22 H Creatinine 1.18 H Calcium 7.5 L Liver Function 07/03/18 07/03/18 07/03/18 Range/Units 11:20 11:20 14:09 Total Bilirubin Cancelled 0.8 0.8 Direct Bilirubin Cancelled 0.3 H 0.3 H GGT (5-55) U/L AST Cancelled 931 H ALT Cancelled 1027 H Alkaline Phosphatase Cancelled 156 H Albumin Cancelled 2.6 L D 3.2 L D 07/03/18 07/03/18 Range/Units 14:09 14:09 Total Bilirubin Direct Bilirubin GGT 435 H (5-55) U/L AST ALT Alkaline Phosphatase Albumin Cancelled <Vijaya Jiménez - 07/03/18 15:40> Abnormal lab results 07/02/18 Range/Units 09:20 Hemoglobin A1c 6.3 H (4.3-6.0) % <TrangcarlosJaelyn - 07/03/18 11:23> Physical Exam Vital signs: Vital Signs 07/02/18 20:00 07/02/18 20:22 07/03/18 00:00 Temperature 97.7 F 98.3 F Pulse Rate 84 81 Respiratory Rate 19 17 Blood Pressure 86/53 L 99/54 L Pulse Oximetry 93 L 94 L 92 L 07/03/18 04:00 07/03/18 07:42 07/03/18 08:00 Temperature 98.2 F 98.5 F Pulse Rate 71 72 84 Respiratory Rate 18 20 Blood Pressure 93/50 L 109/54 L Pulse Oximetry 93 L 07/03/18 10:30 07/03/18 11:33 Temperature 98.3 F Pulse Rate 106 H Respiratory Rate 20 Blood Pressure 115/56 L Pulse Oximetry 89 L 92 L Intake & Output 07/02/18 07/03/18 07/03/18 18:59 06:59 18:59 Intake Total 100 / 100 420 / 420 Balance 100 / 100 420 / 420 Intake: IV 100 / 100 NS Inj 1,000 ML @ 110 mls/hr IV 100 / 100 .CONT .Q9H6M [facility] Rx#:[id number] Oral 420 / 420 Other: # Voids 3 Date of Last Bowel Movement 07/02/18 07/02/18 07/03/18 <Vijaya Jiménez - 07/03/18 15:40> Vital Signs 07/02/18 11:59 07/02/18 20:00 07/02/18 20:22 Temperature 98.9 F 97.7 F Pulse Rate 83 84 Respiratory Rate 18 19 Blood Pressure 101/55 L 86/53 L Pulse Oximetry 93 L 93 L 94 L 07/03/18 00:00 07/03/18 04:00 07/03/18 07:42 Temperature 98.3 F 98.2 F 98.5 F Pulse Rate 81 71 72 Respiratory Rate 17 18 20 Blood Pressure 99/54 L 93/50 L 109/54 L Pulse Oximetry 92 L 93 L 07/03/18 08:00 07/03/18 10:30 Temperature Pulse Rate 84 Respiratory Rate Blood Pressure Pulse Oximetry 89 L Intake & Output 07/02/18 07/03/18 07/03/18 18:59 06:59 18:59 Intake Total 100 / 100 420 / 420 Balance 100 / 100 420 / 420 Intake: IV 100 / 100 NS Inj 1,000 ML @ 110 mls/hr IV 100 / 100 .CONT .Q9H6M [facility] Rx#:[id number] Oral 420 / 420 Other: # Voids 3 Date of Last Bowel Movement 07/02/18 07/02/18 07/03/18 <Jaelyn Turner - 07/03/18 11:23> Narrative: In NAD, no resp distress, nontoxic. Talks in complete sentences. Sits up in bed on her own and without difficulty. Nasal cannula in place on 1 L CTAB, no crackles, no wheezes. Regular rate and rhythm, no murmur No edema; no calf tenderness. 4+/5 weakness on right side, consistent with deficit from recent stroke. Otherwise, neurologic exam WNL. <Jaeyln Turner - 07/03/18 14:05> Assessment and Plan - Assessment (1) Elevated LFTs Code(s): R94.5 - Abnormal results of liver function studies Status: Acute (2) Oxygen desaturation Code(s): R09.02 - Hypoxemia Status: Acute (3) Syncope Code(s): R55 - Syncope and collapse Status: Resolved (4) ARGELIA (acute kidney injury) Code(s): N17.9 - Acute kidney failure, unspecified Status: Acute (5) Elevated troponin Code(s): R74.8 - Abnormal levels of other serum enzymes Status: Acute (6) Hyperglycemia Code(s): R73.9 - Hyperglycemia, unspecified Status: Acute (7) Hypothyroidism Code(s): E03.9 - Hypothyroidism, unspecified Status: Chronic (8) History of CVA (cerebrovascular accident) Code(s): Z86.73 - Personal history of transient ischemic attack (TIA), and cerebral infarction without residual deficits Status: Chronic (9) History of cardiac murmur Code(s): Z86.79 - Personal history of other diseases of the circulatory system Status: Chronic (10) History of gastroesophageal reflux (GERD) Code(s): Z87.19 - Personal history of other diseases of the digestive system Status: Chronic (11) Nutrition, metabolism, and development symptoms Code(s): R63.8 - Other symptoms and signs concerning food and fluid intake Status: Acute (12) DVT prophylaxis Status: Acute <Vijaya Jiménez - 07/03/18 15:40> (1) Elevated LFTs Code(s): R94.5 - Abnormal results of liver function studies Status: Acute Plan: Patient with significant elevation of LFTs since admission hx of MINIMAL alcohol intake (1/2 [place]) Differential includes cardiogenic versus viral versus autoimmune versus toxic AST: 173 --> 701 --> 931 ALT: 83--> 622 --> 1027 T Bili: 0.7 --> 1.05 --> 0.8 Albumin: 2.6 INR: 1.1 Urine protein: 100 Liver US WNL Hepatitis panel WNL. Follow-up echocardiogram, BNP Follow-up DOMONIQUE, ceruloplasmin, GGT, hepatitis C RNA PCR, HSV antibodies, VZV PCR , Tylenol level, direct bilirubin, repeat UA for urine protein (2) Oxygen desaturation Code(s): R09.02 - Hypoxemia Status: Acute Plan: Symptomatic oxygen desaturations to 85% with shortness of breath on activity -Lungs clear on physical exam -No history of smoking/COPD, no history of asthma, no known history of heart disease Differential includes CHF versus underlying airway disease BNP 550 Chest x-ray: Negative Follow-up repeat BNP this morning Follow-up echocardiogram Status post IV Solu-Medrol 120 mg on 07/03 Continue with IV Solu-Medrol 60 mg 3 times daily DuoNeb treatments as needed (3) Syncope Code(s): R55 - Syncope and collapse Status: Resolved Plan: 88-year-old presenting to the ED following syncopal episode after exiting a hot tub and admitted for observation due to second syncopal episode just prior to emergency department discharge. CBC in ED showed no signs of anemia, or electrolyte imbalances and LFTs slightly elevated. Urine analysis negative for UTI, with 100 protein. EKG showed sinus tachycardia with a heart rate of 119, multiple PVCs and Q waves in leads II, III and aVF consistent with prior inferior MA. Labs: -Serial troponin, CK-MB, and EKG ordered. Troponins <0.02 --> 0.10 --> 0.15 --> 0.13, ACS ruled out EKG with frequent PVCs; this continues throughout time in hospital on telemetry -Vitamin B12 level WNL -Glucose 232 on admission. Imaging: -CXR showed hypoinflated lungs that are grossly clear without acute pulmonary disease. -CT head showed extensive white matter atrophic changes without evidence of midline shift, mass lesion, hemorrhage, or acute infarction. -Carotid ultrasound ordered but patient declined. Orthostatic blood pressures reassuring PT consulted to eval and treat Medications: -Tylenol 650 mg p.o. every 4 hours as needed for pain -Zofran 4 mg IV every 6 hours as needed for nausea (4) ARGELIA (acute kidney injury) Code(s): N17.9 - Acute kidney failure, unspecified Status: Acute Plan: BUN 20 and creatinine 1.24 on admission. Likely due to mild dehydration. Patient given to 1 L boluses of NS in the ED. -IVF at 110 mls/hr initially; stopped for concern of CHF overload Caution with nephrotoxins (5) Elevated troponin Code(s): R74.8 - Abnormal levels of other serum enzymes Status: Acute Plan: Resolved on 07/02/18 Pt presented to ER for syncope Troponins <0.02 --> 0.10 --> 0.15 --> 0.13 EKG with multiple PVCs (6) Hyperglycemia Code(s): R73.9 - Hyperglycemia, unspecified Status: Acute Plan: Prediabetes Patient without a known diagnosis of diabetes, however strong family history. Random glucose >200 on admission. Hemoglobin a1c: 6.3 (7) Hypothyroidism Code(s): E03.9 - Hypothyroidism, unspecified Status: Chronic Plan: Patient with history of hypothyroidism on levothyroxine. -will continue home levothyroxine 50 mcg PO daily. TSH WNL. (8) History of CVA (cerebrovascular accident) Code(s): Z86.73 - Personal history of transient ischemic attack (TIA), and cerebral infarction without residual deficits Status: Chronic Plan: Patient with history of CVA 3, most recent one month ago. 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 -Follow-up echocardiogram -Patient refuses carotid ultrasound -Patient refused head MRI (9) History of cardiac murmur Code(s): Z86.79 - Personal history of other diseases of the circulatory system Status: Chronic Plan: Patient has a history of unspecified heart murmur. Patient to be seen by vp care management in [place] within the next week for further workup. No murmur heard on clinical exam however patient's rhythm was irregular. Follow-up echocardiogram (10) History of gastroesophageal reflux (GERD) Code(s): Z87.19 - Personal history of other diseases of the digestive system Status: Chronic Plan: Patient with history of reflux, on famotidine and pantoprazole at home. -Continue home pantoprazole 40 mg p.o. daily. -Hold home famotidine 20 mg p.o. daily (11) Nutrition, metabolism, and development symptoms Code(s): R63.8 - Other symptoms and signs concerning food and fluid intake Status: Acute Plan: Diet: Full liquid diet Electrolytes: No significant electrolyte abnormalities at this time, continue to monitor and replete as necessary Fluids: No fluids at this time due to concern for CHF, p.o. fluids only (12) DVT prophylaxis Status: Acute Plan: DVT prophylaxis: SCDs, heparin 3 times daily <Jaelyn Turner - 07/03/18 14:05> - Assessment and Plan 88-year-old female, history of recent syncopal episodes, hypothyroidism, history of CVA, presents with additional syncopal episode and is found to have markedly increasing LFTs and oxygen desaturations, and ARGELIA. <Jaelyn Turner - 07/03/18 14:07> Discharge Planning: Pending GI evaluation of LFTs and stabilization of acute liver failure. <Jaelyn Turner - 07/03/18 14:07> - Attending Attestation Patient seen and examined at 1045, discussed with resident team. I agree with assessment and management as documented and discussed with me. Pt is being admitted from observation status to inpatient status, due to continued stay, oxygen desaturation (85% on room air during my exam/interview), and worsening liver function (ALT>1000). I certify that inpatient stay is warranted and that 2 midnight stay is anticipated. Catherine Hart is an 88yo lady with h/o CVA initially admitted under observation for 2 episodes of syncope; first one after getting out of a hot tub and second while being wheeled from the ER after evaluation. During hospitalization, it was noted that patient required oxygen supplementation to maintain sats >90%. In addition, LFTs mildly elevated initially, now markedly elevated. Overnight, pt continued to require oxygen. This morning, she reports to me difficulty breathing, worse with minimal exertion. She denies nausea, vomiting, abdominal pain. ROS: As per resident note. +SOB. All other systems reviewed are negative. PMH/PSxH/SocHx/FamHx: h/o CVA, hypothyroidism, GERD. hysterectomy and cholecystectomy. Fam hx of diabetes. Never smoker. Rare alcohol intake. Here on vacation from [facility]. <Vijaya Jiménez - 07/03/18 15:40> <Jaelyn Turner - Last Filed: 07/03/18 14:05> (3) Syncope Qualifiers: Syncope type: unspecified Qualified Code(s): R55 - Syncope and collapse (7) Hypothyroidism Qualifiers: Hypothyroidism type: acquired Qualified Code(s): E03.9 - Hypothyroidism, unspecified <Vijaya Jiménez - Last Filed: 07/03/18 15:40> (3) Syncope Qualifiers: Syncope type: unspecified Qualified Code(s): R55 - Syncope and collapse (7) Hypothyroidism Qualifiers: Hypothyroidism type: acquired Qualified Code(s): E03.9 - Hypothyroidism, unspecified <Jaelyn Turner - Last Filed: 07/03/18 14:05> (3) Syncope Qualifiers: Syncope type: unspecified Qualified Code(s): R55 - Syncope and collapse (7) Hypothyroidism Qualifiers: Hypothyroidism type: acquired Qualified Code(s): E03.9 - Hypothyroidism, unspecified <Vijaya Jiménez - Last Filed: 07/03/18 15:40> (3) Syncope Qualifiers: Syncope type: unspecified Qualified Code(s): R55 - Syncope and collapse (7) Hypothyroidism Qualifiers: Hypothyroidism type: acquired Qualified Code(s): E03.9 - Hypothyroidism, unspecified
[2018-07-03] MEDS ORDERED: Tiotropium Bromide 18 MCG/ACT Inhaler INH ONE (12:00)
[2018-07-03 12:48] LABS: Alanine Aminotransferase 1027 U/L (10-53); Albumin 2.6 g/dL (3.4-5.0); Alkaline Phosphatase 156 U/L (45-117); Anion Gap 12 meq/L (5-15); Aspartate Aminotransferase 931 U/L (15-37); Blood Urea Nitrogen 22 mg/dL (7-18); Calcium 7.5 mg/dL (8.5-10.1); Carbon Dioxide 23.1 meq/L (21.0-32.0); Chloride 106 meq/L (98-107); Glomerular Filtration Rate 43 mL/min (>89); Glucose,Random 158 mg/dL (74-106); Potassium 3.7 meq/L (3.5-5.1); Sodium 141 meq/L (136-145)
[2018-07-03 12:58] LABS: Hematocrit 34.5 % (35.0-46.0); Hemoglobin 11.2 gm/dL (11.6-15.3); Mean Corpuscular HGB Conc 32.4 % (32.0-36.0); Mean Corpuscular Hemoglobin 32.1 pg (27.0-34.0); Mean Corpuscular Volume 99.3 fL (80.0-100.0); Mean Platelet Volume 9.9 fL (7.0-11.0); Platelet Count 111 th/mm3 (150-450); Red Blood Count 3.48 mil/mm3 (4.00-5.30); Red Cell Distribution Width 19.7 % (11.6-17.2); White Blood Count 9.8 th/mm3 (4.0-11.0)
[2018-07-03] MEDS ORDERED: Bisacodyl 10 MG Supp RECTAL PRN (13:03)
[2018-07-03 13:38] LABS: Eosinophils 3 % (0-4); Lymphocytes 24 % (9-44); Monocytes 3 % (0-8); Platelet Morphology Normal (Normal)
[2018-07-03 14:43] LABS: Activated Partial Thrombo Time 22.2 sec (24.3-30.1); INR 1.2 Ratio; Prothrombin Time 11.9 sec (9.8-11.6)
[2018-07-03] MEDS: Heparin - SQ 10,000 UNITS/ML Vial SQ SCH ×2 (15:14→21:18)
[2018-07-03 15:15] LABS: Albumin 3.2 g/dL (3.4-5.0)
[2018-07-03] MEDS ORDERED: Diatrizoate Meglum/Diatrizoate Sod Liq 9 ML UDC PO ONE (15:45)
--- NOTE | 2018-07-03 17:59 | P.CONGI ---
History of Present Illness Consult date: 07/03/18 Consult reason: Acute liver failure unknown etiology Chief complaint: syncope History of Present Illness: This is a pleasant 88-year-old female who came into the hospital for further evaluation 07/01/2018 for acute onset of syncopal episode when getting out of a hot tub according to the record. Onset of symptoms was acute which also noted was some generalized fatigue. Patient denies any symptoms of nausea and vomiting, dyspepsia, dysphagia, or abdominal pain. Currently patient has some symptoms of shortness of breath and has been placed on oxygen at 2 L. Onset of the shortness of breath within the past 4 hours. Patient notes history of CVA last one approximately 1 month ago and has a appointment in her [facility] for cardiology and a possible heart murmur. Gastroenterology was consulted to assist with abnormal LFTs and acute liver failure unknown etiology. Current labs show hemoglobin 11.2 platelet count 111, PT/INR 1.2 ceruloplasmin pending, GGT elevated 435, AST 931 ALT 1027 alkaline phosphatase 156, total bilirubin normal at 0.8, DOMONIQUE is pending hepatitis panel is nonreactive and ultrasound of the liver unremarkable. Patient denies any history of any liver failure or family history of colon cancer. Last colonoscopy was approximately 5 years ago when which polyps were found questionable EGD in the past but it is a possibility. Currently patient is alone and is answering simple questions but is a fair to poor historian on her history. Currently patient denies any diarrhea, does note some occasional constipation and had taken some stool softeners 48 hours before admission. 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 - Medical History Medical History: Medical History (Last Reviewed 07/02/18 @ 08:03 by Mariel Campos) CVA (cerebral vascular accident) Heart murmur History of hysterectomy - Surgical History Surgical History: Surgical History (Last Reviewed 07/02/18 @ 08:03 by Mariel Campos) History of cholecystectomy - Tobacco History Second Hand Smoke Exposure: No Smoking Status: Never smoker - Alcohol History How Often Do You Have a Drink Containing Alcohol: Monthly or less - Substance Use History Substance History: No History of Abuse - Travel History Recent Travel in the [place] Within the Last 8 Weeks: Yes Recent Travel Out of the Country Within the Last 8 Weeks: No - Immunization History Tetanus Immunization: <5 Years <Michelle Waggoner - Last Filed: 07/03/18 17:48> - Medical History Medical History: Medical History (Last Reviewed 07/02/18 @ 08:03 by Mariel Campos) CVA (cerebral vascular accident) Heart murmur History of hysterectomy - Surgical History Surgical History: Surgical History (Last Reviewed 07/02/18 @ 08:03 by Mariel Campos) History of cholecystectomy <Jonna Laureano - Last Filed: 07/03/18 21:44> Medications and Allergies Active Medications: Active Medications Acetaminophen (Tylenol) 650 mg PO Q4H PRN PRN Reason: Temp > 100.4 Al Hydroxide/Mg Hydroxide (Milk Of Magnesia Liq) 30 ml PO Q12H PRN PRN Reason: Mild Constipation Albuterol (Duoneb Neb (Prn)) 1 ampul NEB Q6HR NEB PRN PRN Reason: SHORTNESS OF BREATH Aspirin (Ecotrin) 81 mg PO DAILY [facility] Last Admin: 07/03/18 08:38 Dose: 81 mg Bisacodyl (Dulcolax Supp) 10 mg RECTAL DAILY PRN PRN Reason: SEVERE CONSITIPATION Furosemide (Lasix Inj) 20 mg IV.PUSH BID@0900,1800 [facility] Heparin Sodium (Porcine) (Heparin Inj) 5,000 units SQ Q8H [facility] Last Admin: 07/03/18 15:14 Dose: 5,000 units Sodium Chloride (Ns Inj) 1,000 mls @ 0 mls/hr IV.SIG BOLUS ARNULFO Sodium Chloride (Ns Inj) 1,000 mls @ 0 mls/hr IV.SIG BOLUS [facility] Last Infusion: 07/02/18 03:29 Dose: Infused Lactulose (Lactulose Liq) 30 ml PO DAILY PRN PRN Reason: SEVERE CONSITIPATION Levothyroxine Sodium (Synthroid) 50 mcg PO DAILY@0700 [facility] Last Admin: 07/03/18 06:21 Dose: 50 mcg Methylprednisolone Sodium Succinate (Solumedrol Inj) 60 mg IV.PUSH Q8H ARNULFO Ondansetron HCl (Zofran Inj) 4 mg IV.PUSH Q6H PRN PRN Reason: NAUSEA OR VOMITING Last Admin: 07/02/18 11:26 Dose: 4 mg Pantoprazole Sodium (Protonix) 40 mg PO DAILY [facility] Last Admin: 07/03/18 08:38 Dose: 40 mg Senna/Docusate Sodium (Coreen-Colace) 1 tab PO BID [facility] Sennosides (Senokot) 17.2 mg PO Q12H PRN PRN Reason: Moderate Constipation Sodium Chloride (Ns Flush) 2 ml IV.FLUSH BID [facility] Last Admin: 07/03/18 08:38 Dose: 2 ml Sodium Chloride (Ns Flush) 2 ml IV.FLUSH PRN PRN PRN Reason: FLUSH AFTER USING IV ACCESS <Michelle Waggoner - Last Filed: 07/03/18 17:48> Active Medications: Active Medications Acetaminophen (Tylenol) 650 mg PO Q4H PRN PRN Reason: Temp > 100.4 Al Hydroxide/Mg Hydroxide (Milk Of Magnesia Liq) 30 ml PO Q12H PRN PRN Reason: Mild Constipation Albuterol (Duoneb Neb (Prn)) 1 ampul NEB Q6HR NEB PRN PRN Reason: SHORTNESS OF BREATH Last Admin: 07/03/18 17:57 Dose: 1 ampul Aspirin (Ecotrin) 81 mg PO DAILY [facility] Last Admin: 07/03/18 08:38 Dose: 81 mg Bisacodyl (Dulcolax Supp) 10 mg RECTAL DAILY PRN PRN Reason: SEVERE CONSITIPATION Furosemide (Lasix Inj) 20 mg IV.PUSH BID@0900,1800 [facility] Last Admin: 07/03/18 19:18 Dose: Not Given Heparin Sodium (Porcine) (Heparin Inj) 5,000 units SQ Q8H [facility] Last Admin: 07/03/18 21:18 Dose: 5,000 units Sodium Chloride (Ns Inj) 1,000 mls @ 0 mls/hr IV.SIG BOLUS [facility] Sodium Chloride (Ns Inj) 1,000 mls @ 0 mls/hr IV.SIG BOLUS [facility] Last Infusion: 07/02/18 03:29 Dose: Infused Lactulose (Lactulose Liq) 30 ml PO DAILY PRN PRN Reason: SEVERE CONSITIPATION Levothyroxine Sodium (Synthroid) 50 mcg PO DAILY@0700 [facility] Last Admin: 07/03/18 06:21 Dose: 50 mcg Methylprednisolone Sodium Succinate (Solumedrol Inj) 60 mg IV.PUSH Q8H [facility] Last Admin: 07/03/18 21:18 Dose: 60 mg Ondansetron HCl (Zofran Inj) 4 mg IV.PUSH Q6H PRN PRN Reason: NAUSEA OR VOMITING Last Admin: 07/02/18 11:26 Dose: 4 mg Pantoprazole Sodium (Protonix) 40 mg PO DAILY [facility] Last Admin: 07/03/18 08:38 Dose: 40 mg Senna/Docusate Sodium (Coreen-Colace) 1 tab PO BID [facility] Last Admin: 07/03/18 21:17 Dose: 1 tab Sennosides (Senokot) 17.2 mg PO Q12H PRN PRN Reason: Moderate Constipation Sodium Chloride (Ns Flush) 2 ml IV.FLUSH BID [facility] Last Admin: 07/03/18 21:19 Dose: 2 ml Sodium Chloride (Ns Flush) 2 ml IV.FLUSH PRN PRN PRN Reason: FLUSH AFTER USING IV ACCESS <Jonna Laureano A - Last Filed: 07/03/18 21:44> Allergies Allergy/AdvReac Type Severity Reaction Status Date / Time Penicillins Allergy Severe Rash Verified 07/01/18 14:28 Home Medications Medication Instructions Recorded Confirmed Type aspirin [Aspir-81] 81 mg PO DAILY 07/01/18 07/01/18 History cholecalciferol (vitamin D3) 07/01/18 History [Vitamin D3] famotidine [Pepcid] 20 mg PO DAILY 07/01/18 07/01/18 History folic acid 1 mg PO DAILY 07/01/18 07/01/18 History levothyroxine 50 mcg PO DAILY 07/01/18 07/01/18 History mirtazapine 15 mg PO DAILY 07/01/18 07/01/18 History pantoprazole [Protonix] 40 mg PO DAILY 07/01/18 07/01/18 History potassium chloride 8 meq PO DAILY 07/01/18 07/01/18 History prednisone 07/01/18 History Exam Vital signs: Vital Signs 07/02/18 20:00 07/02/18 20:22 07/03/18 00:00 Temperature 97.7 F 98.3 F Pulse Rate 84 81 Respiratory Rate 19 17 Blood Pressure 86/53 L 99/54 L Pulse Oximetry 93 L 94 L 92 L 07/03/18 04:00 07/03/18 07:42 07/03/18 08:00 Temperature 98.2 F 98.5 F Pulse Rate 71 72 84 Respiratory Rate 18 20 Blood Pressure 93/50 L 109/54 L Pulse Oximetry 93 L 07/03/18 10:30 07/03/18 11:33 07/03/18 15:46 Temperature 98.3 F 98.4 F Pulse Rate 106 H 47 L Respiratory Rate 20 22 Blood Pressure 115/56 L 111/56 L Pulse Oximetry 89 L 92 L 90 L Intake & Output 07/02/18 07/03/18 07/03/18 18:59 06:59 18:59 Intake Total 100 / 100 420 / 420 Balance 100 / 100 420 / 420 Intake: IV 100 / 100 NS Inj 1,000 ML @ 110 mls/hr IV 100 / 100 .CONT .Q9H6M [facility] Rx#:[id number] Oral 420 / 420 Other: # Voids 3 Date of Last Bowel Movement 07/02/18 07/02/18 07/03/18 - Constitutional moderate distress, obese - Routine HEENT Exam Head: Present: normocephalic, atraumatic (Shortness of breath) ENT: Present: mucous membranes moist - Routine Respiratory Exam Present: accessory muscle use, decreased breath sounds (Diminished bibasilar with mild expiratory wheeze) - Routine Cardiovascular Exam Present: S1 (Distant but possible soft murmur), S2 - Routine Abdominal Exam Present: soft (Round, normal bowel sounds no obvious abdominal pain light palpation) - Routine Skin Exam Present: intact, ecchymosis (Bilateral arms) <Michelle Waggoner - Last Filed: 07/03/18 17:48> Vital signs: Vital Signs 07/03/18 00:00 07/03/18 04:00 07/03/18 07:42 Temperature 98.3 F 98.2 F 98.5 F Pulse Rate 81 71 72 Respiratory Rate 17 18 20 Blood Pressure 99/54 L 93/50 L 109/54 L Pulse Oximetry 92 L 93 L 07/03/18 08:00 07/03/18 10:30 07/03/18 11:33 Temperature 98.3 F Pulse Rate 84 106 H Respiratory Rate 20 Blood Pressure 115/56 L Pulse Oximetry 89 L 92 L 07/03/18 15:46 07/03/18 18:00 07/03/18 18:19 Temperature 98.4 F Pulse Rate 47 L 67 Respiratory Rate 22 17 Blood Pressure 111/56 L Pulse Oximetry 90 L 93 L 07/03/18 19:32 07/03/18 20:00 Temperature 97.4 F L Pulse Rate 72 Respiratory Rate 18 Blood Pressure 139/72 Pulse Oximetry 91 L 89 L Intake & Output 07/03/18 07/03/18 07/04/18 06:59 18:59 06:59 Intake Total 420 / 420 Balance 420 / 420 Intake: Oral 420 / 420 Other: # Voids 3 Date of Last Bowel Movement 07/02/18 07/03/18 <Jonna Laureano A - Last Filed: 07/03/18 21:44> Results - Labs CBC & Chem 7: 07/03/18 12:15 07/03/18 11:20 Labs: Laboratory Results - last 24 hr 07/02/18 07/03/18 07/03/18 09:20 11:20 11:20 WBC RBC Hgb Hct MCV MCH MCHC RDW Plt Count MPV Prelim Diff (Auto) WBC Differential Seg Neuts % (Manual) Lymphocytes % (Manual) Monocytes % (Manual) Eosinophils % (Manual) Abs Neuts (Manual) Differential Comment Platelet Estimate Platelet Morphology PT INR APTT Sodium 141 Potassium 3.7 Chloride 106 Carbon Dioxide 23.1 Anion Gap 12 BUN 22 H Creatinine 1.18 H Estimated GFR 43 L Random Glucose 158 H Calcium 7.5 L Total Bilirubin Cancelled 0.8 Direct Bilirubin Cancelled 0.3 H Indirect Bilirubin Cancelled GGT AST Cancelled 931 H ALT Cancelled 1027 H Alkaline Phosphatase Cancelled 156 H B-Natriuretic Peptide Total Protein Cancelled 6.0 L D Albumin Cancelled 2.6 L D Acetaminophen RPR Nonreactive 07/03/18 07/03/18 07/03/18 12:15 14:09 14:09 WBC 9.8 RBC 3.48 L Hgb 11.2 L Hct 34.5 L MCV 99.3 MCH 32.1 MCHC 32.4 RDW 19.7 H Plt Count 111 L MPV 9.9 Prelim Diff (Auto) Manual diff required WBC Differential Manual diff final Seg Neuts % (Manual) 70 Lymphocytes % (Manual) 24 Monocytes % (Manual) 3 Eosinophils % (Manual) 3 Abs Neuts (Manual) 6.9 Differential Comment . Platelet Estimate Low L Platelet Morphology Normal PT INR APTT Sodium Potassium Chloride Carbon Dioxide Anion Gap BUN Creatinine Estimated GFR Random Glucose Calcium Total Bilirubin 0.8 Direct Bilirubin 0.3 H Indirect Bilirubin GGT AST ALT Alkaline Phosphatase B-Natriuretic Peptide 788 H Total Protein Albumin 3.2 L D Acetaminophen Less than 2.0 L RPR 07/03/18 07/03/18 07/03/18 14:09 14:09 14:09 WBC RBC Hgb Hct MCV MCH MCHC RDW Plt Count MPV Prelim Diff (Auto) WBC Differential Seg Neuts % (Manual) Lymphocytes % (Manual) Monocytes % (Manual) Eosinophils % (Manual) Abs Neuts (Manual) Differential Comment Platelet Estimate Platelet Morphology PT 11.9 H INR 1.2 APTT 22.2 L Sodium Potassium Chloride Carbon Dioxide Anion Gap BUN Creatinine Estimated GFR Random Glucose Calcium Total Bilirubin Direct Bilirubin Indirect Bilirubin GGT 435 H AST ALT Alkaline Phosphatase B-Natriuretic Peptide Total Protein Albumin Cancelled Acetaminophen RPR <Michelle Waggoner M - Last Filed: 07/03/18 17:48> - Labs CBC & Chem 7: 07/03/18 12:15 07/03/18 11:20 Labs: Laboratory Results - last 24 hr 07/02/18 07/03/18 07/03/18 09:20 11:20 11:20 WBC RBC Hgb Hct MCV MCH MCHC RDW Plt Count MPV Prelim Diff (Auto) WBC Differential Seg Neuts % (Manual) Lymphocytes % (Manual) Monocytes % (Manual) Eosinophils % (Manual) Abs Neuts (Manual) Differential Comment Platelet Estimate Platelet Morphology PT INR APTT Sodium 141 Potassium 3.7 Chloride 106 Carbon Dioxide 23.1 Anion Gap 12 BUN 22 H Creatinine 1.18 H Estimated GFR 43 L Random Glucose 158 H Calcium 7.5 L Total Bilirubin Cancelled 0.8 Direct Bilirubin Cancelled 0.3 H Indirect Bilirubin Cancelled GGT AST Cancelled 931 H ALT Cancelled 1027 H Alkaline Phosphatase Cancelled 156 H B-Natriuretic Peptide Total Protein Cancelled 6.0 L D Albumin Cancelled 2.6 L D Tumor Marker AFP Urine Color Urine Clarity Urine pH Ur Specific Stanton Urine Protein Urine Glucose (UA) Urine Ketones Urine Occult Blood Urine Nitrate Urine Bilirubin Urine Urobilinogen Ur Leukocyte Esterase Urine RBC Urine WBC Ur Squamous Epith Cells Urine Bacteria Urine Mucus Ur Microscopic Review Acetaminophen RPR Nonreactive 07/03/18 07/03/18 07/03/18 12:15 14:09 14:09 WBC 9.8 RBC 3.48 L Hgb 11.2 L Hct 34.5 L MCV 99.3 MCH 32.1 MCHC 32.4 RDW 19.7 H Plt Count 111 L MPV 9.9 Prelim Diff (Auto) Manual diff required WBC Differential Manual diff final Seg Neuts % (Manual) 70 Lymphocytes % (Manual) 24 Monocytes % (Manual) 3 Eosinophils % (Manual) 3 Abs Neuts (Manual) 6.9 Differential Comment . Platelet Estimate Low L Platelet Morphology Normal PT INR APTT Sodium Potassium Chloride Carbon Dioxide Anion Gap BUN Creatinine Estimated GFR Random Glucose Calcium Total Bilirubin 0.8 Direct Bilirubin 0.3 H Indirect Bilirubin GGT AST ALT Alkaline Phosphatase B-Natriuretic Peptide 788 H Total Protein Albumin 3.2 L D Tumor Marker AFP Urine Color Urine Clarity Urine pH Ur Specific Stanton Urine Protein Urine Glucose (UA) Urine Ketones Urine Occult Blood Urine Nitrate Urine Bilirubin Urine Urobilinogen Ur Leukocyte Esterase Urine RBC Urine WBC Ur Squamous Epith Cells Urine Bacteria Urine Mucus Ur Microscopic Review Acetaminophen Less than 2.0 L RPR 07/03/18 07/03/18 07/03/18 14:09 14:09 14:09 WBC RBC Hgb Hct MCV MCH MCHC RDW Plt Count MPV Prelim Diff (Auto) WBC Differential Seg Neuts % (Manual) Lymphocytes % (Manual) Monocytes % (Manual) Eosinophils % (Manual) Abs Neuts (Manual) Differential Comment Platelet Estimate Platelet Morphology PT 11.9 H INR 1.2 APTT 22.2 L Sodium Potassium Chloride Carbon Dioxide Anion Gap BUN Creatinine Estimated GFR Random Glucose Calcium Total Bilirubin Direct Bilirubin Indirect Bilirubin GGT 435 H AST ALT Alkaline Phosphatase B-Natriuretic Peptide Total Protein Albumin Cancelled Tumor Marker AFP Urine Color Urine Clarity Urine pH Ur Specific Stanton Urine Protein Urine Glucose (UA) Urine Ketones Urine Occult Blood Urine Nitrate Urine Bilirubin Urine Urobilinogen Ur Leukocyte Esterase Urine RBC Urine WBC Ur Squamous Epith Cells Urine Bacteria Urine Mucus Ur Microscopic Review Acetaminophen RPR 07/03/18 07/03/18 14:09 17:45 WBC RBC Hgb Hct MCV MCH MCHC RDW Plt Count MPV Prelim Diff (Auto) WBC Differential Seg Neuts % (Manual) Lymphocytes % (Manual) Monocytes % (Manual) Eosinophils % (Manual) Abs Neuts (Manual) Differential Comment Platelet Estimate Platelet Morphology PT INR APTT Sodium Potassium Chloride Carbon Dioxide Anion Gap BUN Creatinine Estimated GFR Random Glucose Calcium Total Bilirubin Direct Bilirubin Indirect Bilirubin GGT AST ALT Alkaline Phosphatase B-Natriuretic Peptide Total Protein Albumin Tumor Marker AFP 3.5 Urine Color Yellow Urine Clarity Clear Urine pH 6.0 Ur Specific Stanton 1.009 Urine Protein Negative Urine Glucose (UA) 150 H Urine Ketones Negative Urine Occult Blood Negative Urine Nitrate Negative Urine Bilirubin Negative Urine Urobilinogen Less than 2 Ur Leukocyte Esterase Negative Urine RBC Less than 1 Urine WBC 1 Ur Squamous Epith Cells <1 Urine Bacteria Rare H Urine Mucus Few H Ur Microscopic Review Not Reportable Acetaminophen RPR - Imaging Impressions Abdomen/Pelvis CT 07/03/18 00:00 CONCLUSION: 1. There is consolidation in the right lower lobe with air bronchograms and small right effusion. The findings could indicate pneumonia. 2. The liver is unremarkable in appearance on this noncontrast exam. There is no focal abnormality. 3. Mild diverticulosis. 4. Simple cyst extending off the lower pole of left kidney. <Jonna Laureano - Last Filed: 07/03/18 21:44> Assessment and Plan (1) Liver failure without hepatic coma Status: Acute Code(s): K72.90 - Hepatic failure, unspecified without coma - Plan 07/01/2018 for acute onset of syncopal episode when getting out of a hot tub according to the record. generalized fatigue. Patient denies any symptoms of nausea and vomiting, dyspepsia, dysphagia, or abdominal pain. Currently patient has some symptoms of shortness of breath and has been placed on oxygen at 2 L. Onset of the shortness of breath within the past 4 hours. Patient notes history of CVA last one approximately 1 month ago and has a appointment in her [facility] for cardiology and a possible heart murmur. Gastroenterology was consulted to assist with abnormal LFTs and acute liver failure unknown etiology. Current labs show hemoglobin 11.2 platelet count 111, PT/INR 1.2 ceruloplasmin pending, GGT elevated 435, AST 931 ALT 1027 alkaline phosphatase 156, total bilirubin normal at 0.8, DOMONIQUE is pending hepatitis panel is nonreactive and ultrasound of the liver unremarkable. Patient denies any history of any liver failure or family history of colon cancer. Last colonoscopy was approximately 5 years ago when which polyps were found questionable EGD in the past but it is a possibility. Currently patient is alone and is answering simple questions but is a fair to poor historian on her history. Currently patient denies any diarrhea, does note some occasional constipation and had taken some stool softeners 48 hours before admission. Transaminitis ,acute liver failure liver workup is pending but could be related to autoimmune disorders such as rheumatoid arthritis or medications. Patient is from [place] and will need follow-up with her GI specialist when she is stable. Patient is currently alone but daughter is in town with her. Plan Diet as tolerated per attending Continue to monitor labs especially LFTs and bilirubin Full liver workup labs are pending Monitor for any coagulopathy or obvious bleeding Further recommendations to follow Patient was seen per myself and Dr. Laureano, note was written on his behalf <Michelle Waggoner - Last Filed: 07/03/18 17:48> (1) Liver failure without hepatic coma Status: Acute Code(s): K72.90 - Hepatic failure, unspecified without coma - Attending Attestation Seen and examined with Michelle, Will check LFT's daily, workup for CLD and if all negative liver biopsy. <Jonna Laureano - Last Filed: 07/03/18 21:44>
[2018-07-03 18:54] LABS: Bacteria,Urine Rare /hpf; Bilirubin,Urine Negative (Negative); Clarity,Urine Clear (Clear); Color,Urine Yellow (Yellw/Straw); Glucose,Urine (UA) 150 mg/dL (Negative); Leukocyte Esterase,Urine Negative (Negative); Mucus,Urine Few /lpf (Occasional); Nitrite,Urine Negative (Negative); Specific Gravity,Urine 1.009 (1.002-1.035); Squamous Epithelial Cell,Urine <1 /hpf (0-5)
--- NOTE | 2018-07-03 19:38 | CT ---
EXAM DATE: 07/03/2018 7:31 PM EDT AGE/SEX: 88 years / Female INDICATIONS: Elevated liver function enzymes CLINICAL DATA: This is the patient's initial encounter. Patient reports that signs and symptoms have been present for 1 day and indicates a pain score of 0/10. MEDICAL/SURGICAL HISTORY: Cerebrovascular disease. heart murmur Hysterectomy. Cholecystectomy . RADIATION DOSE: 6.64 CTDI (mGy) COMPARISON: No prior exams available for comparison. TECHNIQUE: Multiple contiguous axial images were obtained through the abdomen. Images were obtained using multiple row detector helical technique. Using automated exposure control and adjustment of the mA and/or kV according to patient size, radiation dose was kept as low as reasonably achievable to o btain optimal diagnostic quality images. DICOM format image data is available electronically for rev iew and comparison. FINDINGS: Lower Lungs: There is a small right pleural effusion with consolidation in the right lower lobe with air bronchograms. Liver: The liver has a homogeneous density without space-occupying lesion. There is no dilation of th e biliary tree. The patient is status post cholecystectomy. Spleen: Homogeneous density without enlargement. Pancreas: Unremarkable without mass or calcification. Kidneys: Normal in size and shape. No evidence of solid mass or hydronephrosis. A moderate to large cyst is present and extends off the lower pole the left kidney. This measures up to close to 5 cm in diameter. Adrenal Glands: Unremarkable. Aorta: The aorta and proximal iliac vessels are grossly unremarkable without aneurysmal dilation. Bowel/Mesentery: Multiple diverticuli present in the sigmoid colon with no inflammatory change. The cecum and sigmoid colon have a normal configuration. Abdominal Wall: Intact. Retroperitoneum: No evidence of adenopathy in the retrocrural, para-aortic, or deep pelvic regions. Bladder: Contours are smooth. Reproductive Organs: No abnormal masses or calcifications seen. Inguinal: The inguinal region is unremarkable without evidence of adenopathy. Bony Structures: Unremarkable. CONCLUSION: 1. There is consolidation in the right lower lobe with air bronchograms and small right effusion. Th e findings could indicate pneumonia. 2. The liver is unremarkable in appearance on this noncontrast exam. There is no focal abnormality. 3. Mild diverticulosis. 4. Simple cyst extending off the lower pole of left kidney. Electronically signed by: Dominic Cueva MD 07/03/2018 7:36 PM EDT
[2018-07-03] MEDS: Senna/Docusate Sodium 8.6/50 MG Tablet PO SCH (21:17)
[2018-07-03] MEDS: MethylPREDNISolone Sod Succinate Inj 40 MG/ML Vial IV.PUSH SCH (21:18)
[2018-07-04 02:03] LABS: HSV 1 IgG Positive (Negative); HSV 2 IgG Negative (Negative)
[2018-07-04] MEDS: Heparin - SQ 10,000 UNITS/ML Vial SQ SCH ×3 (05:27→22:07)
[2018-07-04] MEDS: MethylPREDNISolone Sod Succinate Inj 40 MG/ML Vial IV.PUSH SCH ×3 (05:27→20:18)
[2018-07-04 07:52] LABS: Hematocrit 30.9 % (35.0-46.0); Hemoglobin 10.3 gm/dL (11.6-15.3); Mean Corpuscular HGB Conc 33.4 % (32.0-36.0); Mean Corpuscular Hemoglobin 32.2 pg (27.0-34.0); Mean Corpuscular Volume 96.4 fL (80.0-100.0); Mean Platelet Volume 9.5 fL (7.0-11.0); Platelet Count 95 th/mm3 (150-450); Red Blood Count 3.21 mil/mm3 (4.00-5.30); Red Cell Distribution Width 19.1 % (11.6-17.2); White Blood Count 9.9 th/mm3 (4.0-11.0)
[2018-07-04 08:04] LABS: Alanine Aminotransferase 875 U/L (10-53); Albumin 2.8 g/dL (3.4-5.0); Anion Gap 11 meq/L (5-15); Aspartate Aminotransferase 371 U/L (15-37); Blood Urea Nitrogen 17 mg/dL (7-18); Calcium 8.1 mg/dL (8.5-10.1); Carbon Dioxide 23.2 meq/L (21.0-32.0); Chloride 109 meq/L (98-107); Glomerular Filtration Rate 55 mL/min (>89); Glucose,Random 143 mg/dL (74-106); Potassium 4.4 meq/L (3.5-5.1); Sodium 143 meq/L (136-145)
[2018-07-04 08:07] LABS: Alkaline Phosphatase 153 U/L (45-117); Total Protein 6.4 g/dL (6.4-8.2)
[2018-07-04] MEDS: Levothyroxine 50 MCG Tablet PO SCH (08:33)
[2018-07-04] MEDS: Senna/Docusate Sodium 8.6/50 MG Tablet PO SCH ×2 (08:34→20:19)
[2018-07-04 09:03] LABS: Lymphocytes 8 % (9-44); Monocytes 1 % (0-8); Platelet Morphology Normal (Normal)
[2018-07-04] MEDS: Aztreonam Inj 2 GM in Sodium Chloride 0.9% Inj 100 ML IV.SIG SCH ×3 (10:00→18:18)
--- NOTE | 2018-07-04 10:40 | P.PNFP ---
Subjective Interval history: Patient was resting comfortably during examination. She reports productive cough and shortness of breath, constipation, weakness. She denies chest pain. She does not have an appetite but has been drinking fluids. <Clementina Maynard - 07/04/18 11:14> Results - Labs Result diagrams: 07/04/18 07:20 07/04/18 07:20 <Vijaya Jiménez - 07/04/18 13:33> Abnormal lab results 07/03/18 07/03/18 07/03/18 Range/Units 12:15 14:09 14:09 RBC (4.00-5.30) mil/mm3 Hgb (11.6-15.3) gm/dL Hct (35.0-46.0) % RDW (11.6-17.2) % Plt Count (150-450) th/mm3 Seg Neuts % (Manual) (16-70) % Band Neuts % (Manual) (0-6) % Lymphocytes % (Manual) (9-44) % Abs Neuts (Manual) (1.8-7.7) th/mm3 Platelet Estimate Low L (Normal) PT (9.8-11.6) sec APTT (24.3-30.1) sec Chloride (98-107) meq/L Estimated GFR (>89) mL/min Random Glucose (74-106) mg/dL Calcium (8.5-10.1) mg/dL Direct Bilirubin 0.3 H (0.0-0.2) mg/dL GGT (5-55) U/L AST (15-37) U/L ALT (10-53) U/L Alkaline Phosphatase (45-117) U/L B-Natriuretic Peptide 788 H (0-100) pg/mL Albumin 3.2 L D (3.4-5.0) g/dL Urine Glucose (UA) (Negative) mg/dL Urine Bacteria (None) /hpf Urine Mucus (Occasional) /lpf Acetaminophen Less than 2.0 L (10.0-30.0) mcg/mL 07/03/18 07/03/18 07/03/18 Range/Units 14:09 14:09 17:45 RBC (4.00-5.30) mil/mm3 Hgb (11.6-15.3) gm/dL Hct (35.0-46.0) % RDW (11.6-17.2) % Plt Count (150-450) th/mm3 Seg Neuts % (Manual) (16-70) % Band Neuts % (Manual) (0-6) % Lymphocytes % (Manual) (9-44) % Abs Neuts (Manual) (1.8-7.7) th/mm3 Platelet Estimate (Normal) PT 11.9 H (9.8-11.6) sec APTT 22.2 L (24.3-30.1) sec Chloride (98-107) meq/L Estimated GFR (>89) mL/min Random Glucose (74-106) mg/dL Calcium (8.5-10.1) mg/dL Direct Bilirubin (0.0-0.2) mg/dL GGT 435 H (5-55) U/L AST (15-37) U/L ALT (10-53) U/L Alkaline Phosphatase (45-117) U/L B-Natriuretic Peptide (0-100) pg/mL Albumin (3.4-5.0) g/dL Urine Glucose (UA) 150 H (Negative) mg/dL Urine Bacteria Rare H (None) /hpf Urine Mucus Few H (Occasional) /lpf Acetaminophen (10.0-30.0) mcg/mL 07/04/18 07/04/18 Range/Units 07:20 07:20 RBC 3.21 L (4.00-5.30) mil/mm3 Hgb 10.3 L (11.6-15.3) gm/dL Hct 30.9 L (35.0-46.0) % RDW 19.1 H (11.6-17.2) % Plt Count 95 L (150-450) th/mm3 Seg Neuts % (Manual) 83 H (16-70) % Band Neuts % (Manual) 8 H (0-6) % Lymphocytes % (Manual) 8 L (9-44) % Abs Neuts (Manual) 9.0 H (1.8-7.7) th/mm3 Platelet Estimate Low L (Normal) PT (9.8-11.6) sec APTT (24.3-30.1) sec Chloride 109 H (98-107) meq/L Estimated GFR 55 L (>89) mL/min Random Glucose 143 H (74-106) mg/dL Calcium 8.1 L (8.5-10.1) mg/dL Direct Bilirubin (0.0-0.2) mg/dL GGT (5-55) U/L AST 371 H (15-37) U/L ALT 875 H (10-53) U/L Alkaline Phosphatase 153 H (45-117) U/L B-Natriuretic Peptide (0-100) pg/mL Albumin 2.8 L (3.4-5.0) g/dL Urine Glucose (UA) (Negative) mg/dL Urine Bacteria (None) /hpf Urine Mucus (Occasional) /lpf Acetaminophen (10.0-30.0) mcg/mL Short CBC 07/04/18 Range/Units 07:20 WBC 9.9 (4.0-11.0) th/mm3 Hgb 10.3 L (11.6-15.3) gm/dL Hct 30.9 L (35.0-46.0) % Plt Count 95 L (150-450) th/mm3 BMP 07/04/18 07:20 Sodium 143 Potassium 4.4 Chloride 109 H Carbon Dioxide 23.2 BUN 17 Creatinine 0.96 Calcium 8.1 L Liver Function 07/03/18 07/03/18 07/03/18 Range/Units 14:09 14:09 14:09 Total Bilirubin 0.8 (0.2-1.0) mg/dL Direct Bilirubin 0.3 H (0.0-0.2) mg/dL GGT 435 H (5-55) U/L AST (15-37) U/L ALT (10-53) U/L Alkaline Phosphatase (45-117) U/L Albumin 3.2 L D Cancelled (3.4-5.0) g/dL 07/04/18 Range/Units 07:20 Total Bilirubin 0.6 (0.2-1.0) mg/dL Direct Bilirubin (0.0-0.2) mg/dL GGT (5-55) U/L AST 371 H (15-37) U/L ALT 875 H (10-53) U/L Alkaline Phosphatase 153 H (45-117) U/L Albumin 2.8 L (3.4-5.0) g/dL Urine 07/03/18 Range/Units 17:45 Urine Color Yellow (Yellw/Straw) Urine Clarity Clear (Clear) Urine pH 6.0 (5.0-8.5) Ur Specific [place] 1.009 (1.002-1.035) Urine Protein Negative (Neg-Trace) mg/dL Urine Glucose (UA) 150 H (Negative) mg/dL <Vijaya Jiménez - 07/04/18 13:33> Abnormal lab results 07/03/18 07/03/18 07/03/18 Range/Units 11:20 12:15 14:09 RBC 3.48 L (4.00-5.30) mil/mm3 Hgb 11.2 L (11.6-15.3) gm/dL Hct 34.5 L (35.0-46.0) % RDW 19.7 H (11.6-17.2) % Plt Count 111 L (150-450) th/mm3 Seg Neuts % (Manual) (16-70) % Band Neuts % (Manual) (0-6) % Lymphocytes % (Manual) (9-44) % Abs Neuts (Manual) (1.8-7.7) th/mm3 Platelet Estimate Low L (Normal) PT (9.8-11.6) sec APTT (24.3-30.1) sec Chloride (98-107) meq/L BUN 22 H (7-18) mg/dL Creatinine 1.18 H (0.50-1.00) mg/dL Estimated GFR 43 L (>89) mL/min Random Glucose 158 H (74-106) mg/dL Calcium 7.5 L (8.5-10.1) mg/dL Direct Bilirubin 0.3 H (0.0-0.2) mg/dL GGT (5-55) U/L AST 931 H (15-37) U/L ALT 1027 H (10-53) U/L Alkaline Phosphatase 156 H (45-117) U/L B-Natriuretic Peptide 788 H (0-100) pg/mL Total Protein 6.0 L D (6.4-8.2) g/dL Albumin 2.6 L D (3.4-5.0) g/dL Urine Glucose (UA) (Negative) mg/dL Urine Bacteria (None) /hpf Urine Mucus (Occasional) /lpf Acetaminophen (10.0-30.0) mcg/mL 07/03/18 07/03/18 07/03/18 Range/Units 14:09 14:09 14:09 RBC (4.00-5.30) mil/mm3 Hgb (11.6-15.3) gm/dL Hct (35.0-46.0) % RDW (11.6-17.2) % Plt Count (150-450) th/mm3 Seg Neuts % (Manual) (16-70) % Band Neuts % (Manual) (0-6) % Lymphocytes % (Manual) (9-44) % Abs Neuts (Manual) (1.8-7.7) th/mm3 Platelet Estimate (Normal) PT 11.9 H (9.8-11.6) sec APTT 22.2 L (24.3-30.1) sec Chloride (98-107) meq/L BUN (7-18) mg/dL Creatinine (0.50-1.00) mg/dL Estimated GFR (>89) mL/min Random Glucose (74-106) mg/dL Calcium (8.5-10.1) mg/dL Direct Bilirubin 0.3 H (0.0-0.2) mg/dL GGT 435 H (5-55) U/L AST (15-37) U/L ALT (10-53) U/L Alkaline Phosphatase (45-117) U/L B-Natriuretic Peptide (0-100) pg/mL Total Protein (6.4-8.2) g/dL Albumin 3.2 L D (3.4-5.0) g/dL Urine Glucose (UA) (Negative) mg/dL Urine Bacteria (None) /hpf Urine Mucus (Occasional) /lpf Acetaminophen Less than 2.0 L (10.0-30.0) mcg/mL 07/03/18 07/04/18 07/04/18 Range/Units 17:45 07:20 07:20 RBC 3.21 L (4.00-5.30) mil/mm3 Hgb 10.3 L (11.6-15.3) gm/dL Hct 30.9 L (35.0-46.0) % RDW 19.1 H (11.6-17.2) % Plt Count 95 L (150-450) th/mm3 Seg Neuts % (Manual) 83 H (16-70) % Band Neuts % (Manual) 8 H (0-6) % Lymphocytes % (Manual) 8 L (9-44) % Abs Neuts (Manual) 9.0 H (1.8-7.7) th/mm3 Platelet Estimate Low L (Normal) PT (9.8-11.6) sec APTT (24.3-30.1) sec Chloride 109 H (98-107) meq/L BUN (7-18) mg/dL Creatinine (0.50-1.00) mg/dL Estimated GFR 55 L (>89) mL/min Random Glucose 143 H (74-106) mg/dL Calcium 8.1 L (8.5-10.1) mg/dL Direct Bilirubin (0.0-0.2) mg/dL GGT (5-55) U/L AST 371 H (15-37) U/L ALT 875 H (10-53) U/L Alkaline Phosphatase 153 H (45-117) U/L B-Natriuretic Peptide (0-100) pg/mL Total Protein (6.4-8.2) g/dL Albumin 2.8 L (3.4-5.0) g/dL Urine Glucose (UA) 150 H (Negative) mg/dL Urine Bacteria Rare H (None) /hpf Urine Mucus Few H (Occasional) /lpf Acetaminophen (10.0-30.0) mcg/mL Short CBC 07/03/18 07/04/18 Range/Units 12:15 07:20 WBC 9.8 9.9 (4.0-11.0) th/mm3 Hgb 11.2 L 10.3 L (11.6-15.3) gm/dL Hct 34.5 L 30.9 L (35.0-46.0) % Plt Count 111 L 95 L (150-450) th/mm3 BMP 07/03/18 07/04/18 11:20 07:20 Sodium 141 143 Potassium 3.7 4.4 Chloride 106 109 H Carbon Dioxide 23.1 23.2 BUN 22 H 17 Creatinine 1.18 H 0.96 Calcium 7.5 L 8.1 L Liver Function 07/03/18 07/03/18 07/03/18 Range/Units 11:20 11:20 14:09 Total Bilirubin Cancelled 0.8 0.8 Direct Bilirubin Cancelled 0.3 H 0.3 H GGT (5-55) U/L AST Cancelled 931 H ALT Cancelled 1027 H Alkaline Phosphatase Cancelled 156 H Albumin Cancelled 2.6 L D 3.2 L D 07/03/18 07/03/18 07/04/18 Range/Units 14:09 14:09 07:20 Total Bilirubin 0.6 Direct Bilirubin GGT 435 H (5-55) U/L AST 371 H ALT 875 H Alkaline Phosphatase 153 H Albumin Cancelled 2.8 L Urine 07/03/18 Range/Units 17:45 Urine Color Yellow (Yellw/Straw) Urine Clarity Clear (Clear) Urine pH 6.0 (5.0-8.5) Ur Specific [place] 1.009 (1.002-1.035) Urine Protein Negative (Neg-Trace) mg/dL Urine Glucose (UA) 150 H (Negative) mg/dL <Clementina Maynard - 07/04/18 10:40> - Imaging Impressions Abdomen/Pelvis CT 07/03/18 00:00 CONCLUSION: 1. There is consolidation in the right lower lobe with air bronchograms and small right effusion. The findings could indicate pneumonia. 2. The liver is unremarkable in appearance on this noncontrast exam. There is no focal abnormality. 3. Mild diverticulosis. 4. Simple cyst extending off the lower pole of left kidney. <Vijaya Jiménez - 07/04/18 13:33> Impressions Abdomen/Pelvis CT 07/03/18 00:00 CONCLUSION: 1. There is consolidation in the right lower lobe with air bronchograms and small right effusion. The findings could indicate pneumonia. 2. The liver is unremarkable in appearance on this noncontrast exam. There is no focal abnormality. 3. Mild diverticulosis. 4. Simple cyst extending off the lower pole of left kidney. <Clementina Maynard - 07/04/18 10:40> Physical Exam Vital signs: Vital Signs 07/03/18 15:46 07/03/18 18:00 07/03/18 18:19 Temperature 98.4 F Pulse Rate 47 L 67 Respiratory Rate 22 17 Blood Pressure 111/56 L Pulse Oximetry 90 L 93 L 07/03/18 19:32 07/03/18 19:49 07/03/18 20:00 Temperature 97.4 F L Pulse Rate 95 H 72 Respiratory Rate 18 Blood Pressure 139/72 Pulse Oximetry 91 L 89 L 07/04/18 00:00 07/04/18 04:00 07/04/18 07:25 Temperature 97.3 F L 97.2 F L 97.8 F Pulse Rate 78 60 75 Respiratory Rate 18 18 16 Blood Pressure 134/59 L 135/65 115/55 L Pulse Oximetry 90 L 92 L 91 L 07/04/18 07:48 07/04/18 09:17 07/04/18 11:40 Temperature 97.8 F Pulse Rate 79 75 89 Respiratory Rate 16 16 Blood Pressure 116/56 L Pulse Oximetry 89 L Intake & Output 07/03/18 07/04/18 07/04/18 18:59 06:59 18:59 Intake Total 120 / 120 Balance 120 / 120 Intake: Oral 120 / 120 Other: # Urine Diapers 2 Date of Last Bowel Movement 07/03/18 07/03/18 <Vijaya Jiménez - 07/04/18 13:33> Vital Signs 07/03/18 11:33 07/03/18 15:46 07/03/18 18:00 Temperature 98.3 F 98.4 F Pulse Rate 106 H 47 L 67 Respiratory Rate 20 22 17 Blood Pressure 115/56 L 111/56 L Pulse Oximetry 92 L 90 L 07/03/18 18:19 07/03/18 19:32 07/03/18 19:49 Temperature Pulse Rate 95 H Respiratory Rate Blood Pressure Pulse Oximetry 93 L 91 L 07/03/18 20:00 07/04/18 00:00 07/04/18 04:00 Temperature 97.4 F L 97.3 F L 97.2 F L Pulse Rate 72 78 60 Respiratory Rate 18 18 18 Blood Pressure 139/72 134/59 L 135/65 Pulse Oximetry 89 L 90 L 92 L 07/04/18 07:25 07/04/18 07:48 07/04/18 09:17 Temperature 97.8 F Pulse Rate 75 79 75 Respiratory Rate 16 16 Blood Pressure 115/55 L Pulse Oximetry 91 L Intake & Output 07/03/18 07/04/18 07/04/18 18:59 06:59 18:59 Intake Total 120 / 120 Balance 120 / 120 Intake: Oral 120 / 120 Other: # Urine Diapers 2 Date of Last Bowel Movement 07/03/18 07/03/18 <Clementina Maynard 07/04/18 10:40> - Constitutional no acute distress <Clementina Maynard 07/04/18 11:14> - Routine HEENT Exam Head: Present: normocephalic, atraumatic <Clementina Maynard 07/04/18 11:14> - Routine Respiratory Exam Present: decreased breath sounds. Absent: accessory muscle use, prolonged expiratory phase, rales, respiratory distress, rhonchi <Clementina Maynard 11:14> Comments: left lung clear, right based decreased breath sounds <Clementina Maynard 07/04/18 11:14> - Routine Extremities Exam Absent: edema <Clementina Maynard 07/04/18 11:14> - Routine Neurological Exam Present: alert, oriented X3 <Clementina Maynard 07/04/18 11:14> Assessment and Plan - Assessment (1) Elevated LFTs Code(s): R94.5 - Abnormal results of liver function studies Status: Acute (2) Thrombocytopenia Code(s): D69.6 - Thrombocytopenia, unspecified Status: Acute (3) Pneumonia involving right lung Code(s): J18.9 - Pneumonia, unspecified organism Status: Acute (4) Oxygen desaturation Code(s): R09.02 - Hypoxemia Status: Acute (5) ARGELIA (acute kidney injury) Code(s): N17.9 - Acute kidney failure, unspecified Status: Acute (6) Syncope Code(s): R55 - Syncope and collapse Status: Resolved (7) Elevated troponin Code(s): R74.8 - Abnormal levels of other serum enzymes Status: Acute (8) Hyperglycemia Code(s): R73.9 - Hyperglycemia, unspecified Status: Acute (9) Hypothyroidism Code(s): E03.9 - Hypothyroidism, unspecified Status: Chronic (10) History of CVA (cerebrovascular accident) Code(s): Z86.73 - Personal history of transient ischemic attack (TIA), and cerebral infarction without residual deficits Status: Chronic (11) History of cardiac murmur Code(s): Z86.79 - Personal history of other diseases of the circulatory system Status: Chronic (12) Low hemoglobin Code(s): D64.9 - Anemia, unspecified Status: Acute (13) History of gastroesophageal reflux (GERD) Code(s): Z87.19 - Personal history of other diseases of the digestive system Status: Chronic (14) Nutrition, metabolism, and development symptoms Code(s): R63.8 - Other symptoms and signs concerning food and fluid intake Status: Acute (15) DVT prophylaxis Status: Acute <Vijaya Jiménez - 07/04/18 13:33> (1) Elevated LFTs Code(s): R94.5 - Abnormal results of liver function studies Status: Acute Plan: Patient with significant elevation of LFTs since admission hx of MINIMAL alcohol intake (1/2 [place]) Differential includes cardiogenic versus viral versus autoimmune versus toxic AST: 173 --> 701 --> 931-->371 ALT: 83--> 622 --> 1027-->875 T Bili: 0.7 --> 1.05 --> 0.8--> 0.6 Albumin: 2.6--> 3.2-->2.8 INR: 1.1 Urine protein: 100--> negative on 07/03/18 Direct bili: 0.3 Acetaminophen level: less than 2.0 Imaging -Liver US WNL -Hepatitis panel WNL. -Abd CT w/o contrast: CONCLUSION: 1. There is consolidation in the right lower lobe with air bronchograms and small right effusion. The findings could indicate pneumonia. 2. The liver is unremarkable in appearance on this noncontrast exam. There is no focal abnormality. 3. Mild diverticulosis. 4. Simple cyst extending off the lower pole of left kidney. Follow-up echocardiogram, BNP Follow-up DOMONIQUE, ceruloplasmin, GGT, hepatitis C RNA PCR, HSV antibodies, VZV PCR (2) Thrombocytopenia Code(s): D69.6 - Thrombocytopenia, unspecified Status: Acute Plan: Patient's platelet count has decreased from 174 on admission to 95 today. Patient is on heparin, but I believe this is due to the acute liver injury. I calculated the 4T's for HIT score which is <5%. -Continue heparin -Continue to monitor daily -Path to review smear (3) Pneumonia involving right lung Code(s): J18.9 - Pneumonia, unspecified organism Status: Acute Plan: Patient with CT evidence of consolidation in right lung base. Patient was in inpatient rehab 1 month ago so we will cover for HAP. Patient reports she is allergice to penicillins and gets hives. This occurred when she was a child. Due to patient's stroke history and location of pneumonia, I have also ordered a swallow study. -Aztreonam 2 gm Q8h -Levofloxacin 750 mg per 24 hours. -Duoneb Q6h -Incentive spirometer -Acapella Q6h -Blood culture PENDING -Sputum culture PENDING -procalcitonin PENDING (4) Oxygen desaturation Code(s): R09.02 - Hypoxemia Status: Acute Plan: Symptomatic oxygen desaturations to 85% with shortness of breath on activity -right lung base with decreased breath sounds today -No history of smoking/COPD, no history of asthma, no known history of heart disease Differential includes pneumonia vs CHF versus underlying airway disease BNP 550 --> 788 on 07/03 Chest x-ray: Negative CT abd: consolidation in right lower lobe Follow-up echocardiogram, still not completed. Ordered on 07/02 Status post IV Solu-Medrol 120 mg on 07/03 Continue with IV Solu-Medrol 60 mg 3 times daily DuoNeb treatments q6H (5) ARGELIA (acute kidney injury) Code(s): N17.9 - Acute kidney failure, unspecified Status: Acute Plan: BUN 20 and creatinine 1.24 on admission. Likely due to mild dehydration. Patient given to 1 L boluses of NS in the ED. -IVF at 110 mls/hr initially; stopped for concern of CHF overload. - Creatinine normalized to 0.96 today - Caution with nephrotoxins (6) Syncope Code(s): R55 - Syncope and collapse Status: Resolved Plan: 88-year-old presenting to the ED following syncopal episode after exiting a hot tub and admitted for observation due to second syncopal episode just prior to emergency department discharge. CBC in ED showed no signs of anemia, or electrolyte imbalances and LFTs slightly elevated. Urine analysis negative for UTI, with 100 protein. EKG showed sinus tachycardia with a heart rate of 119, multiple PVCs and Q waves in leads II, III and aVF consistent with prior inferior NM. Labs: -Serial troponin, CK-MB, and EKG ordered. Troponins <0.02 --> 0.10 --> 0.15 --> 0.13, ACS ruled out EKG with frequent PVCs; this continues throughout time in hospital on telemetry -Vitamin B12 level WNL -Glucose 232 on admission. Imaging: -CXR showed hypoinflated lungs that are grossly clear without acute pulmonary disease. -CT head showed extensive white matter atrophic changes without evidence of midline shift, mass lesion, hemorrhage, or acute infarction. -Carotid ultrasound ordered but patient declined. Orthostatic blood pressures reassuring PT consulted to eval and treat Medications: -Tylenol 650 mg p.o. every 4 hours as needed for pain -Zofran 4 mg IV every 6 hours as needed for nausea (7) Elevated troponin Code(s): R74.8 - Abnormal levels of other serum enzymes Status: Acute Plan: Resolved on 07/02/18 Pt presented to ER for syncope Troponins <0.02 --> 0.10 --> 0.15 --> 0.13 EKG with multiple PVCs (8) Hyperglycemia Code(s): R73.9 - Hyperglycemia, unspecified Status: Acute Plan: Prediabetes Patient without a known diagnosis of diabetes, however strong family history. Random glucose >200 on admission. Hemoglobin a1c: 6.3 (9) Hypothyroidism Code(s): E03.9 - Hypothyroidism, unspecified Status: Chronic Plan: Patient with history of hypothyroidism on levothyroxine. -will continue home levothyroxine 50 mcg PO daily. TSH WNL. (10) History of CVA (cerebrovascular accident) Code(s): Z86.73 - Personal history of transient ischemic attack (TIA), and cerebral infarction without residual deficits Status: Chronic Plan: Patient with history of CVA 3, most recent one month ago. 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 -Follow-up echocardiogram -Patient refuses carotid ultrasound -Patient refused head MRI (11) History of cardiac murmur Code(s): Z86.79 - Personal history of other diseases of the circulatory system Status: Chronic Plan: Patient has a history of unspecified heart murmur. Patient to be seen by brake shoe rebuilder in [place] within the next week for further workup. No murmur heard on clinical exam however patient's rhythm was irregular. Follow-up echocardiogram (12) Low hemoglobin Code(s): D64.9 - Anemia, unspecified Status: Acute Plan: Patient's Hgb 10.3 today from 11.8 on admission. No active bleeding. -Will monitor H and H at 15:00 today. (13) History of gastroesophageal reflux (GERD) Code(s): Z87.19 - Personal history of other diseases of the digestive system Status: Chronic Plan: Patient with history of reflux, on famotidine and pantoprazole at home. -Continue home pantoprazole 40 mg p.o. daily. -Hold home famotidine 20 mg p.o. daily (14) Nutrition, metabolism, and development symptoms Code(s): R63.8 - Other symptoms and signs concerning food and fluid intake Status: Acute Plan: Diet: liquid diet Electrolytes: No significant electrolyte abnormalities at this time, continue to monitor and replete as necessary Fluids: No fluids at this time due to concern for CHF, p.o. fluids only (15) DVT prophylaxis Status: Acute Plan: DVT prophylaxis: SCDs, heparin 3 times daily <Clementina Maynard - 07/04/18 10:45> - Assessment and Plan 88-year-old female, history of recent syncopal episodes, hypothyroidism, history of CVA, presents with additional syncopal episode and is found to have markedly increasing LFTs and oxygen desaturations, and ARGELIA. <Clementina Maynard - 07/04/18 10:40> - Attending Attestation Patient seen and examined this morning, discussed with resident team. I agree with assessment and management as documented and discussed with me. Pt feels her breathing is a little better than yesterday. Continue oxygen supplementation as needed. LFTs slightly improved from yesterday. Echo pending. Antibiotics have been started for health care associated pneumonia (Pt in a rehab facility recently). Add acapella. <Vijyaa Jiménez - 07/04/18 13:33> <Clementina Maynard A - Last Filed: 07/04/18 10:45> (6) Syncope Qualifiers: Syncope type: unspecified Qualified Code(s): R55 - Syncope and collapse (9) Hypothyroidism Qualifiers: Hypothyroidism type: acquired Qualified Code(s): E03.9 - Hypothyroidism, unspecified <Vey,Vijaya - Last Filed: 07/04/18 13:33> (6) Syncope Qualifiers: Syncope type: unspecified Qualified Code(s): R55 - Syncope and collapse (9) Hypothyroidism Qualifiers: Hypothyroidism type: acquired Qualified Code(s): E03.9 - Hypothyroidism, unspecified <DezparagClementina A - Last Filed: 07/04/18 10:45> (6) Syncope Qualifiers: Syncope type: unspecified Qualified Code(s): R55 - Syncope and collapse (9) Hypothyroidism Qualifiers: Hypothyroidism type: acquired Qualified Code(s): E03.9 - Hypothyroidism, unspecified <Vey,Vijaya - Last Filed: 07/04/18 13:33> (6) Syncope Qualifiers: Syncope type: unspecified Qualified Code(s): R55 - Syncope and collapse (9) Hypothyroidism Qualifiers: Hypothyroidism type: acquired Qualified Code(s): E03.9 - Hypothyroidism, unspecified
[2018-07-04 11:46] LABS: INR 1.1 Ratio; Prothrombin Time 11.5 sec (9.8-11.6)
--- NOTE | 2018-07-04 12:58 | ECHRPT ---
Indication: HEART FAILURE CONCLUSIONS The left ventricular systolic function is normal with an estimated ejection fraction in the range of 55-60%. Normal left ventricular size. Wall thickness is normal. The left ventricular systolic function is normal with an estimated ejection fraction in the range of 55-60%. No regional wall motion abnormalities are present. The right ventricle is moderately dilated. The right atrial size is mildly dilated. Mild thickening of the mitral valve leaflets. Bileaflet mitral valve prolapse. Mild mitral valve regurgitation. Trace aortic valve regurgitation. There is mild to moderate tricuspid valve regurgitation. The estimated pulmonary arterial pressure is 64.5 mmHg. Trivial pulmonary valve regurgitation. BP: / HR: Rhythm: Sinus MEASUREMENTS (Male / Female) Normal Values Technical Quality:Excellent 2D ECHO LV Diastolic Diameter PLAX 3.9 cm 4.2 - 5.9 / 3.9 - 5.3 cm LV Systolic Diameter PLAX 3.0 cm IVS Diastolic Thickness 0.8 cm 0.6 - 1.0 / 0.6 - 0.9 cm LVPW Diastolic Thickness 0.9 cm 0.6 - 1.0 / 0.6 - 0.9 cm LV Relative Wall Thickness 0.4 RV Internal Dim ED PLAX 3.1 cm LVOT Diameter 1.6 cm LA Systolic Diameter LX 2.9 cm 3.0 - 4.0 / 2.7 - 3.8 cm LV Ejection Fraction MOD 4C 56.4 % LV Ejection Fraction 4C AL 58.0 % M-MODE Aortic Root Diameter MM 2.0 cm LA Systolic Diameter MM 3.4 cm LA Ao Ratio MM 1.7 AV Cusp Separation MM 1.5 cm DOPPLER AV Peak Velocity 141.0 cm/s AV Peak Gradient 8.0 mmHg LVOT Peak Velocity 102.0 cm/s LVOT Peak Gradient 4.2 mmHg AV Area Cont Eq pk 1.5 cm MV Area PHT 4.3 cm Mitral E Point Velocity 69.1 cm/s Mitral A Point Velocity 118.0 cm/s Mitral E to A Ratio 0.6 LV E' Lateral Velocity 6.4 cm/s Mitral E to LV E' Lateral Ratio 10.7 LV E' Septal Velocity 6.2 cm/s Mitral E to LV E' Septal Ratio 11.1 TR Peak Velocity 369.0 cm/s TR Peak Gradient 54.5 mmHg Right Atrial Pressure 10.0 mmHg Pulmonary Artery Systolic Pressu 64.5 mmHg Right Ventricular Systolic Press 64.5 mmHg PV Peak Velocity 73.3 cm/s PV Peak Gradient 2.1 mmHg FINDINGS LEFT VENTRICLE The left ventricular systolic function is normal with an estimated ejection fraction in the range of 55-60%. Normal left ventricular size. Wall thickness is normal. No regional wall motion abnormalities are present. RIGHT VENTRICLE The right ventricle is moderately dilated. The right ventricular systoilc function is normal. LEFT ATRIUM The left atrial size is normal. RIGHT ATRIUM The right atrial size is mildly dilated. ATRIAL SEPTUM Normal atrial septal thickness without atrial level shunting by limited color doppler interrogation. AORTA The aortic root and proximal ascending aorta are normal in size on limited imaging. MITRAL VALVE Mild thickening of the mitral valve leaflets. Bileaflet mitral valve prolapse. Mild mitral valve regurgitation. AORTIC VALVE Trileaflet aortic valve. Trace aortic valve regurgitation. TRICUSPID VALVE Structurally normal tricuspid valve. There is mild to moderate tricuspid valve regurgitation. The estimated pulmonary arterial pressure is 64.5 mmHg. PULMONARY VALVE Trivial pulmonary valve regurgitation. VESSELS The inferior vena cava is normal in size. PERICARDIUM No pericardial effusion. Raphael Urias (Electronically Signed) Final Date:04 July 2018 12:58
[2018-07-04 15:49] LABS: Hematocrit 31.4 % (35.0-46.0); Hemoglobin 10.1 gm/dL (11.6-15.3)
[2018-07-05] MEDS: MethylPREDNISolone Sod Succinate Inj 40 MG/ML Vial IV.PUSH SCH (03:51)
[2018-07-05] MEDS: Aztreonam Inj 2 GM in Sodium Chloride 0.9% Inj 100 ML IV.SIG SCH ×3 (03:55→17:36)
[2018-07-05] MEDS: Levothyroxine 50 MCG Tablet PO SCH (06:17)
[2018-07-05] MEDS: Heparin - SQ 10,000 UNITS/ML Vial SQ SCH ×3 (06:17→21:41)
[2018-07-05 08:34] LABS: Alanine Aminotransferase 727 U/L (10-53); Albumin 2.9 g/dL (3.4-5.0); Anion Gap 13 meq/L (5-15); Aspartate Aminotransferase 201 U/L (15-37); Blood Urea Nitrogen 27 mg/dL (7-18); Calcium 8.3 mg/dL (8.5-10.1); Carbon Dioxide 25.1 meq/L (21.0-32.0); Chloride 105 meq/L (98-107); Glomerular Filtration Rate 44 mL/min (>89); Glucose,Random 152 mg/dL (74-106); Potassium 3.6 meq/L (3.5-5.1); Sodium 143 meq/L (136-145)
[2018-07-05 08:36] LABS: Alkaline Phosphatase 139 U/L (45-117); Total Protein 6.3 g/dL (6.4-8.2)
--- NOTE | 2018-07-05 09:25 | XR ---
EXAM DATE: 07/05/2018 8:54 AM EDT AGE/SEX: 88 years / Female INDICATIONS: . Congestion and cough. CLINICAL DATA: This is the patient's initial encounter. Patient reports that signs and symptoms have been present for 4 - 6 days and indicates a pain score of 0/10. MEDICAL/SURGICAL HISTORY: . Cerebrovascular disease. Heart murmur. . Hysterectomy. Cholecystec cholo. COMPARISON: [facility] – [place], CHEST 2V PA&LAT, 07/02/2018. . FINDINGS: Loss of volume is noted in the right lung base. There is blunting of the costophrenic angle character istic of a small effusion. Subsegmental airspace disease appears to be developing. Left lung is hyperinflated but otherwise clear Heart and mediastinal structures are stable. CONCLUSION: Right basilar airspace disease and small effusion with evidence of loss of volume. Electronically signed by: Harrison Brumfield MD 07/05/2018 9:24 AM EDT
[2018-07-05] MEDS: Senna/Docusate Sodium 8.6/50 MG Tablet PO SCH ×2 (09:30→20:59)
--- NOTE | 2018-07-05 09:33 | P.PNFP ---
Subjective Interval history: Patient resting comfortably in bed at the time of examination. She reports that she feels better today. She reports a productive cough and episodic shortness of breath. She has not had a bowel movement. She reports decreased appetite but is drinking fluids. She denies chest pain. <CaesarClementina A - 07/05/18 11:23> Results - Labs Result diagrams: 07/04/18 14:44 07/05/18 06:17 <Donna Straussan - 07/05/18 11:44> Abnormal lab results 07/04/18 07/04/18 07/04/18 Range/Units 11:14 14:44 14:44 Hgb 10.1 L (11.6-15.3) gm/dL Hct 31.4 L (35.0-46.0) % BUN (7-18) mg/dL Creatinine (0.50-1.00) mg/dL Estimated GFR (>89) mL/min Random Glucose (74-106) mg/dL Calcium (8.5-10.1) mg/dL AST (15-37) U/L ALT (10-53) U/L Alkaline Phosphatase (45-117) U/L B-Natriuretic Peptide 639 H (0-100) pg/mL Total Protein (6.4-8.2) g/dL Albumin (3.4-5.0) g/dL Procalcitonin 0.17 H (0.00-0.08) ng/mL 07/05/18 Range/Units 06:17 Hgb (11.6-15.3) gm/dL Hct (35.0-46.0) % BUN 27 H (7-18) mg/dL Creatinine 1.16 H (0.50-1.00) mg/dL Estimated GFR 44 L (>89) mL/min Random Glucose 152 H (74-106) mg/dL Calcium 8.3 L (8.5-10.1) mg/dL AST 201 H (15-37) U/L ALT 727 H (10-53) U/L Alkaline Phosphatase 139 H (45-117) U/L B-Natriuretic Peptide (0-100) pg/mL Total Protein 6.3 L (6.4-8.2) g/dL Albumin 2.9 L (3.4-5.0) g/dL Procalcitonin (0.00-0.08) ng/mL Short CBC 07/04/18 Range/Units 14:44 Hgb 10.1 L (11.6-15.3) gm/dL Hct 31.4 L (35.0-46.0) % BMP 07/05/18 06:17 Sodium 143 Potassium 3.6 D Chloride 105 Carbon Dioxide 25.1 BUN 27 H Creatinine 1.16 H Calcium 8.3 L Liver Function 07/05/18 Range/Units 06:17 Total Bilirubin 0.4 (0.2-1.0) mg/dL AST 201 H (15-37) U/L ALT 727 H (10-53) U/L Alkaline Phosphatase 139 H (45-117) U/L Albumin 2.9 L (3.4-5.0) g/dL <Carlos A,Michelle - 07/05/18 11:44> Abnormal lab results 07/04/18 07/04/18 07/04/18 Range/Units 11:14 14:44 14:44 Hgb 10.1 L (11.6-15.3) gm/dL Hct 31.4 L (35.0-46.0) % BUN (7-18) mg/dL Creatinine (0.50-1.00) mg/dL Estimated GFR (>89) mL/min Random Glucose (74-106) mg/dL Calcium (8.5-10.1) mg/dL AST (15-37) U/L ALT (10-53) U/L Alkaline Phosphatase (45-117) U/L B-Natriuretic Peptide 639 H (0-100) pg/mL Total Protein (6.4-8.2) g/dL Albumin (3.4-5.0) g/dL Procalcitonin 0.17 H (0.00-0.08) ng/mL 07/05/18 Range/Units 06:17 Hgb (11.6-15.3) gm/dL Hct (35.0-46.0) % BUN 27 H (7-18) mg/dL Creatinine 1.16 H (0.50-1.00) mg/dL Estimated GFR 44 L (>89) mL/min Random Glucose 152 H (74-106) mg/dL Calcium 8.3 L (8.5-10.1) mg/dL AST 201 H (15-37) U/L ALT 727 H (10-53) U/L Alkaline Phosphatase 139 H (45-117) U/L B-Natriuretic Peptide (0-100) pg/mL Total Protein 6.3 L (6.4-8.2) g/dL Albumin 2.9 L (3.4-5.0) g/dL Procalcitonin (0.00-0.08) ng/mL Short CBC 07/04/18 Range/Units 14:44 Hgb 10.1 L (11.6-15.3) gm/dL Hct 31.4 L (35.0-46.0) % BMP 07/05/18 06:17 Sodium 143 Potassium 3.6 D Chloride 105 Carbon Dioxide 25.1 BUN 27 H Creatinine 1.16 H Calcium 8.3 L Liver Function 07/05/18 Range/Units 06:17 Total Bilirubin 0.4 (0.2-1.0) mg/dL AST 201 H (15-37) U/L ALT 727 H (10-53) U/L Alkaline Phosphatase 139 H (45-117) U/L Albumin 2.9 L (3.4-5.0) g/dL <Clementina Maynard - 07/05/18 09:32> - Imaging Impressions Chest X-Ray 07/05/18 06:00 CONCLUSION: Right basilar airspace disease and small effusion with evidence of loss of volume. <Michelle Strauss - 07/05/18 11:44> Impressions Chest X-Ray 07/05/18 06:00 CONCLUSION: Right basilar airspace disease and small effusion with evidence of loss of volume. <Clementina Maynard - 07/05/18 09:32> Physical Exam Vital signs: Vital Signs 07/04/18 15:14 07/04/18 15:42 07/04/18 20:00 Temperature 98.3 F 98.0 F Pulse Rate 89 96 H 83 Respiratory Rate 16 20 16 Blood Pressure 132/62 100/55 L Pulse Oximetry 94 L 92 L Pulse Oximetry [Resting on Room Air] Pulse Oximetry [Resting with Oxygen] 07/04/18 20:20 07/05/18 00:00 07/05/18 00:43 Temperature 97.2 F L Pulse Rate 85 82 Respiratory Rate 17 14 Blood Pressure 98/51 L Pulse Oximetry 95 91 L 90 L Pulse Oximetry [Resting on Room Air] Pulse Oximetry [Resting with Oxygen] 07/05/18 03:13 07/05/18 04:00 07/05/18 08:00 Temperature 97.0 F L 97.9 F Pulse Rate 90 86 92 H Respiratory Rate 14 17 18 Blood Pressure 115/55 L 119/70 Pulse Oximetry 91 L 90 L Pulse Oximetry [Resting on Room Air] Pulse Oximetry [Resting with Oxygen] 07/05/18 11:05 Temperature Pulse Rate Respiratory Rate Blood Pressure Pulse Oximetry Pulse Oximetry [Resting on Room Air] 85 L Pulse Oximetry [Resting with Oxygen] 93 L Intake & Output 07/04/18 07/05/18 07/05/18 18:59 06:59 18:59 Intake Total 200 / 200 1050 / 1050 Balance 200 / 200 1050 / 1050 Weight 54.2 kg Intake: IV 200 / 200 250 / 250 Azactam Inj 2 GM In NS Inj 100 200 / 200 100 / 100 ML @ 200 mls/hr IV.SIG Q8H ARNULFO Rx#:[id number] Levaquin 750 mg Premix Inj 150 150 / 150 ML @ 100 mls/hr IV.SIG Q24H ARNULFO Rx#:[id number] Oral 800 / 800 Other: # Incontinent Voids 3 Date of Last Bowel Movement 07/04/18 07/04/18 <Michelle Strauss - 07/05/18 11:44> Vital Signs 07/04/18 11:40 07/04/18 15:14 07/04/18 15:42 Temperature 97.8 F 98.3 F Pulse Rate 89 89 96 H Respiratory Rate 16 16 20 Blood Pressure 116/56 L 132/62 Pulse Oximetry 89 L 94 L 07/04/18 20:00 07/04/18 20:20 07/05/18 00:00 Temperature 98.0 F 97.2 F L Pulse Rate 83 85 Respiratory Rate 16 17 Blood Pressure 100/55 L 98/51 L Pulse Oximetry 92 L 95 91 L 07/05/18 00:43 07/05/18 03:13 07/05/18 04:00 Temperature 97.0 F L Pulse Rate 82 90 86 Respiratory Rate 14 14 17 Blood Pressure 115/55 L Pulse Oximetry 90 L 91 L Intake & Output 07/04/18 07/05/18 07/05/18 18:59 06:59 18:59 Intake Total 200 / 200 1050 / 1050 Balance 200 / 200 1050 / 1050 Weight 54.2 kg Intake: IV 200 / 200 250 / 250 Azactam Inj 2 GM In NS Inj 100 200 / 200 100 / 100 ML @ 200 mls/hr IV.SIG Q8H ARNULFO Rx#:[id number] Levaquin 750 mg Premix Inj 150 150 / 150 ML @ 100 mls/hr IV.SIG Q24H ARNULFO Rx#:[id number] Oral 800 / 800 Other: # Incontinent Voids 3 Date of Last Bowel Movement 07/04/18 <Clementina Maynard - 07/05/18 09:32> Narrative: GENERAL: well-nourished, well developed, in no acute distress SKIN: intact, no rash present HEENT: neck supple, no thyroid nodules appreciated CARDIO: Regular rate and rhythm, no murmurs RESP: Clear to auscultation bilaterally, no wheezing, rales, crackles. ABD: normal bowel sounds, soft, not distended, no tenderness <Clementina Maynard - 07/05/18 11:23> Assessment and Plan - Assessment (1) Elevated LFTs Code(s): R94.5 - Abnormal results of liver function studies Status: Acute (2) Thrombocytopenia Code(s): D69.6 - Thrombocytopenia, unspecified Status: Acute (3) Pneumonia involving right lung Code(s): J18.9 - Pneumonia, unspecified organism Status: Acute (4) Oxygen desaturation Code(s): R09.02 - Hypoxemia Status: Acute (5) ARGELIA (acute kidney injury) Code(s): N17.9 - Acute kidney failure, unspecified Status: Acute (6) Syncope Code(s): R55 - Syncope and collapse Status: Resolved (7) Elevated troponin Code(s): R74.8 - Abnormal levels of other serum enzymes Status: Acute (8) Hyperglycemia Code(s): R73.9 - Hyperglycemia, unspecified Status: Acute (9) Hypothyroidism Code(s): E03.9 - Hypothyroidism, unspecified Status: Chronic (10) History of CVA (cerebrovascular accident) Code(s): Z86.73 - Personal history of transient ischemic attack (TIA), and cerebral infarction without residual deficits Status: Chronic (11) History of cardiac murmur Code(s): Z86.79 - Personal history of other diseases of the circulatory system Status: Chronic (12) Low hemoglobin Code(s): D64.9 - Anemia, unspecified Status: Acute (13) History of gastroesophageal reflux (GERD) Code(s): Z87.19 - Personal history of other diseases of the digestive system Status: Chronic (14) Nutrition, metabolism, and development symptoms Code(s): R63.8 - Other symptoms and signs concerning food and fluid intake Status: Acute (15) DVT prophylaxis Status: Acute <Michelle Strauss - 07/05/18 11:44> (1) Elevated LFTs Code(s): R94.5 - Abnormal results of liver function studies Status: Acute Plan: Patient with significant elevation of LFTs since admission hx of MINIMAL alcohol intake (1/2 [place]) Differential includes cardiogenic versus viral versus autoimmune versus toxic Echocardiogram within normal limits Most recent BMP at 639. This is likely due to pleural effusion AST: 173 --> 701 --> 931-->371--> 201 ALT: 83--> 622 --> 1027-->875--> 727 T Bili: 0.7 --> 1.05 --> 0.8--> 0.6--> 0.4 Albumin: 2.6--> 3.2-->2.8--> 2.9 INR: 1.1 Urine protein: 100--> negative on 07/03/18 Direct bili: 0.3 GGT: 435 Acetaminophen level: less than 2.0 Hepatitis panel: NEGATIVE Imaging -Liver US WNL -Hepatitis panel WNL. -Abd CT w/o contrast: CONCLUSION: 1. There is consolidation in the right lower lobe with air bronchograms and small right effusion. The findings could indicate pneumonia. 2. The liver is unremarkable in appearance on this noncontrast exam. There is no focal abnormality. 3. Mild diverticulosis. 4. Simple cyst extending off the lower pole of left kidney. Follow-up DOMONIQUE, ceruloplasmin, HSV antibodies, VZV PCR (2) Thrombocytopenia Code(s): D69.6 - Thrombocytopenia, unspecified Status: Acute Plan: Patient's platelet count has decreased from 174 on admission to 95 today. Patient is on heparin, but I believe this is due to the acute liver injury. I calculated the 4T's for HIT score which is <5%. -Platelet count: PENDING -Continue heparin -Continue to monitor daily -Path to review smear: No microangiopathic process (3) Pneumonia involving right lung Code(s): J18.9 - Pneumonia, unspecified organism Status: Acute Plan: Patient with CT evidence of consolidation in right lung base. Patient was in inpatient rehab 1 month ago so we will cover for HAP. Patient reports she is allergic to penicillins and gets hives. This occurred when she was a child. Due to patient's stroke history and location of pneumonia, I have also ordered a swallow study. -Aztreonam 2 gm Q8h -Levofloxacin 750 mg per 24 hours.-Patient will be discharged with Levaquin p.o. continue a total of 7 days of antibiotic therapy, oral steroids, albuterol inhaler. -Duoneb Q6h -Incentive spirometer -Acapella Q6h -Swallow study: Normal -Blood culture: No growth 1 day -procalcitonin: 0.17 (4) Oxygen desaturation Code(s): R09.02 - Hypoxemia Status: Acute Plan: Symptomatic oxygen desaturations to 85% with shortness of breath on activity. Patient has required O2 episodically for desats in the high 80s. She did not require O2 at home. -O2 walk test ordered for today. -No history of smoking/COPD, no history of asthma, no known history of heart disease Differential includes pneumonia vs CHF versus underlying airway disease BNP 639 --> 788 on 07/03 Chest x-ray 07/05: Right basilar airspace disease and small effusion with evidence of loss of volume. CT abd: consolidation in right lower lobe Echo with normal injection fraction Status post IV Solu-Medrol 120 mg on 07/03 Continue with IV Solu-Medrol 60 mg 3 times daily DuoNeb treatments q6H (5) ARGELIA (acute kidney injury) Code(s): N17.9 - Acute kidney failure, unspecified Status: Acute Plan: BUN 20 and creatinine 1.24 on admission. Likely due to mild dehydration. Patient given to 1 L boluses of NS in the ED. - IVF at 110 mls/hr initially; stopped for concern of CHF overload. - Creatinine normalized 1.16 today - Caution with nephrotoxins (6) Syncope Code(s): R55 - Syncope and collapse Status: Resolved Plan: 88-year-old presenting to the ED following syncopal episode after exiting a hot tub and admitted for observation due to second syncopal episode just prior to emergency department discharge. CBC in ED showed no signs of anemia, or electrolyte imbalances and LFTs slightly elevated. Urine analysis negative for UTI, with 100 protein. EKG showed sinus tachycardia with a heart rate of 119, multiple PVCs and Q waves in leads II, III and aVF consistent with prior inferior DC. Labs: -Serial troponin, CK-MB, and EKG ordered. Troponins <0.02 --> 0.10 --> 0.15 --> 0.13, ACS ruled out EKG with frequent PVCs; this continues throughout time in hospital on telemetry -Vitamin B12 level WNL -Glucose 232 on admission. Imaging: -CXR showed hypoinflated lungs that are grossly clear without acute pulmonary disease. -CT head showed extensive white matter atrophic changes without evidence of midline shift, mass lesion, hemorrhage, or acute infarction. -Carotid ultrasound ordered but patient declined. Orthostatic blood pressures reassuring PT consulted to eval and treat Medications: -Tylenol 650 mg p.o. every 4 hours as needed for pain -Zofran 4 mg IV every 6 hours as needed for nausea (7) Elevated troponin Code(s): R74.8 - Abnormal levels of other serum enzymes Status: Acute Plan: Resolved on 07/02/18 Pt presented to ER for syncope Troponins <0.02 --> 0.10 --> 0.15 --> 0.13 EKG with multiple PVCs (8) Hyperglycemia Code(s): R73.9 - Hyperglycemia, unspecified Status: Acute Plan: Prediabetes Patient without a known diagnosis of diabetes, however strong family history. Random glucose >200 on admission. Hemoglobin a1c: 6.3 (9) Hypothyroidism Code(s): E03.9 - Hypothyroidism, unspecified Status: Chronic Plan: Patient with history of hypothyroidism on levothyroxine. -will continue home levothyroxine 50 mcg PO daily. TSH WNL. (10) History of CVA (cerebrovascular accident) Code(s): Z86.73 - Personal history of transient ischemic attack (TIA), and cerebral infarction without residual deficits Status: Chronic Plan: Patient with history of CVA 3, most recent one month ago. 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 -Patient refuses carotid ultrasound -Patient refused head MRI (11) History of cardiac murmur Code(s): Z86.79 - Personal history of other diseases of the circulatory system Status: Chronic Plan: Patient has a history of unspecified heart murmur. Patient to be seen by manufacturing industrial engineer in [place] within the next week for further workup. No murmur heard on clinical exam however patient's rhythm was irregular. Follow-up echocardiogram (12) Low hemoglobin Code(s): D64.9 - Anemia, unspecified Status: Acute Plan: Patient's Hgb is 10.1 yesterday afternoon from 11.8 on admission. No active bleeding. -CBC PENDING for today (13) History of gastroesophageal reflux (GERD) Code(s): Z87.19 - Personal history of other diseases of the digestive system Status: Chronic Plan: Patient with history of reflux, on famotidine and pantoprazole at home. -Continue home pantoprazole 40 mg p.o. daily. -Hold home famotidine 20 mg p.o. daily (14) Nutrition, metabolism, and development symptoms Code(s): R63.8 - Other symptoms and signs concerning food and fluid intake Status: Acute Plan: Diet: Regular diet Electrolytes: No significant electrolyte abnormalities at this time, continue to monitor and replete as necessary Fluids: No fluids at this time due to concern for CHF, p.o. fluids only (15) DVT prophylaxis Status: Acute Plan: DVT prophylaxis: SCDs, heparin 3 times daily <Clementina Maynard - 07/05/18 11:01> - Assessment and Plan 88-year-old female, history of recent syncopal episodes, hypothyroidism, history of CVA, presents with additional syncopal episode and is found to have markedly increasing LFTs and oxygen desaturations, and ARGELIA. <Clementina Maynard - 07/05/18 09:32> - Attending Attestation Patient was seen and examined at 11 AM today, July 05, 2018. She has failed her walk test. Discussed possibilities with case management. Discussed with the entire medicine team, and I agree with the findings and the plan as documented. <Michelle Strauss - 07/05/18 11:44> <Clementina Maynard - Last Filed: 07/05/18 11:01> (6) Syncope Qualifiers: Syncope type: unspecified Qualified Code(s): R55 - Syncope and collapse (9) Hypothyroidism Qualifiers: Hypothyroidism type: acquired Qualified Code(s): E03.9 - Hypothyroidism, unspecified <Michelle Strauss - Last Filed: 07/05/18 11:44> (6) Syncope Qualifiers: Syncope type: unspecified Qualified Code(s): R55 - Syncope and collapse (9) Hypothyroidism Qualifiers: Hypothyroidism type: acquired Qualified Code(s): E03.9 - Hypothyroidism, unspecified <Clementina Maynard - Last Filed: 07/05/18 11:01> (6) Syncope Qualifiers: Syncope type: unspecified Qualified Code(s): R55 - Syncope and collapse (9) Hypothyroidism Qualifiers: Hypothyroidism type: acquired Qualified Code(s): E03.9 - Hypothyroidism, unspecified <Michelle Strauss - Last Filed: 07/05/18 11:44> (6) Syncope Qualifiers: Syncope type: unspecified Qualified Code(s): R55 - Syncope and collapse (9) Hypothyroidism Qualifiers: Hypothyroidism type: acquired Qualified Code(s): E03.9 - Hypothyroidism, unspecified
[2018-07-05 11:56] LABS: Baso % (Auto) 0.2 % (0.0-2.0); Hematocrit 32.7 % (35.0-46.0); Hemoglobin 10.4 gm/dL (11.6-15.3); Lymph # (Auto) 0.7 th/mm3 (1.0-4.8); Lymph % (Auto) 4.5 % (9.0-44.0); Mean Corpuscular HGB Conc 31.8 % (32.0-36.0); Mean Corpuscular Hemoglobin 31.7 pg (27.0-34.0); Mean Corpuscular Volume 99.5 fL (80.0-100.0); Mean Platelet Volume 10.3 fL (7.0-11.0); Mono # (Auto) 0.4 th/mm3 (0.0-0.9); Mono % (Auto) 2.6 % (0.0-8.0); Neut # (Auto) 14.8 th/mm3 (1.8-7.7); Neut % (Auto) 92.7 % (16.0-70.0); Platelet Count 160 th/mm3 (150-450); Red Blood Count 3.29 mil/mm3 (4.00-5.30); Red Cell Distribution Width 20.1 % (11.6-17.2)
[2018-07-05 14:28] LABS: Smooth Muscle Total Auto Abs Negative (Negative)
--- NOTE | 2018-07-05 15:32 | P.PNGI ---
Subjective Interval history: Pt resting in bed, daughter at bedside. Denies nausea, vomiting, abdominal pain. Tolerating PO. Possible discharge tomorrow, waiting for daughters to drive here from [place] to take her home. <JadacollinMadiha - Last Filed: 07/05/18 15:32> Physical Exam Vital signs: Vital Signs 07/04/18 15:42 07/04/18 20:00 07/04/18 20:20 Temperature 98.3 F 98.0 F Pulse Rate 96 H 83 Respiratory Rate 20 16 Blood Pressure 132/62 100/55 L Pulse Oximetry 94 L 92 L 95 Pulse Oximetry [Resting on Room Air] Pulse Oximetry [Resting with Oxygen] 07/05/18 00:00 07/05/18 00:43 07/05/18 03:13 Temperature 97.2 F L Pulse Rate 85 82 90 Respiratory Rate 17 14 14 Blood Pressure 98/51 L Pulse Oximetry 91 L 90 L Pulse Oximetry [Resting on Room Air] Pulse Oximetry [Resting with Oxygen] 07/05/18 04:00 07/05/18 08:00 07/05/18 11:05 Temperature 97.0 F L 97.9 F Pulse Rate 86 92 H Respiratory Rate 17 18 Blood Pressure 115/55 L 119/70 Pulse Oximetry 91 L 90 L Pulse Oximetry [Resting on Room Air] 85 L Pulse Oximetry [Resting with Oxygen] 93 L 07/05/18 12:00 07/05/18 12:10 Temperature 97.7 F Pulse Rate 96 H 90 Respiratory Rate 18 15 Blood Pressure 126/67 Pulse Oximetry 92 L 95 Pulse Oximetry [Resting on Room Air] Pulse Oximetry [Resting with Oxygen] Intake & Output 07/04/18 07/05/18 07/05/18 18:59 06:59 18:59 Intake Total 200 / 200 1050 / 1050 250 / 250 Balance 200 / 200 1050 / 1050 250 / 250 Weight 54.2 kg Intake: IV 200 / 200 250 / 250 250 / 250 Azactam Inj 2 GM In NS Inj 100 200 / 200 100 / 100 100 / 100 ML @ 200 mls/hr IV.SIG Q8H [facility] Rx#:[id number] Levaquin 750 mg Premix Inj 150 150 / 150 150 / 150 ML @ 100 mls/hr IV.SIG Q24H [facility] Rx#:[id number] Oral 800 / 800 Other: # Incontinent Voids 3 Date of Last Bowel Movement 07/04/18 07/04/18 - Constitutional no acute distress - Routine HEENT Exam Head: Present: normocephalic, atraumatic - Routine Respiratory Exam Absent: accessory muscle use - Routine Abdominal Exam Present: soft, normoactive bowel sounds. Absent: tenderness, distended - Routine Skin Exam Present: dry, warm - Routine Neurological Exam Present: alert, oriented X3 <Madiha Mariano - Last Filed: 07/05/18 15:32> Vital signs: Vital Signs 07/04/18 20:00 07/04/18 20:20 07/05/18 00:00 Temperature 98.0 F 97.2 F L Pulse Rate 83 85 Respiratory Rate 16 17 Blood Pressure 100/55 L 98/51 L Pulse Oximetry 92 L 95 91 L Pulse Oximetry [Resting on Room Air] Pulse Oximetry [Resting with Oxygen] 07/05/18 00:43 07/05/18 03:13 07/05/18 04:00 Temperature 97.0 F L Pulse Rate 82 90 86 Respiratory Rate 14 14 17 Blood Pressure 115/55 L Pulse Oximetry 90 L 91 L Pulse Oximetry [Resting on Room Air] Pulse Oximetry [Resting with Oxygen] 07/05/18 08:00 07/05/18 11:05 07/05/18 12:00 Temperature 97.9 F 97.7 F Pulse Rate 85 96 H Respiratory Rate 18 18 Blood Pressure 119/70 126/67 Pulse Oximetry 90 L 92 L Pulse Oximetry [Resting on Room Air] 85 L Pulse Oximetry [Resting with Oxygen] 93 L 07/05/18 12:10 Temperature Pulse Rate 90 Respiratory Rate 15 Blood Pressure Pulse Oximetry 95 Pulse Oximetry [Resting on Room Air] Pulse Oximetry [Resting with Oxygen] Intake & Output 07/04/18 07/05/18 07/05/18 18:59 06:59 18:59 Intake Total 200 / 200 1050 / 1050 250 / 250 Balance 200 / 200 1050 / 1050 250 / 250 Weight 54.2 kg Intake: IV 200 / 200 250 / 250 250 / 250 Azactam Inj 2 GM In NS Inj 100 200 / 200 100 / 100 100 / 100 ML @ 200 mls/hr IV.SIG Q8H [facility] Rx#:[id number] Levaquin 750 mg Premix Inj 150 150 / 150 150 / 150 ML @ 100 mls/hr IV.SIG Q24H [facility] Rx#:[id number] Oral 800 / 800 Other: # Incontinent Voids 3 Date of Last Bowel Movement 07/04/18 07/04/18 <SrideviChasidycarmen A - Last Filed: 07/05/18 16:26> Results - Labs CBC & Chem 7: 07/05/18 10:16 07/05/18 06:17 Laboratory Results - last 24 hr 07/03/18 07/03/18 07/04/18 14:09 14:09 11:14 WBC RBC Hgb Hct MCV MCH MCHC RDW Plt Count MPV Neut % (Auto) Lymph % (Auto) [place] % (Auto) Eos % (Auto) Baso % (Auto) Neut # (Auto) Lymph # (Auto) [place] # (Auto) Eos # (Auto) Baso # (Auto) WBC Differential Differential Comment Sodium Potassium Chloride Carbon Dioxide Anion Gap BUN Creatinine Estimated GFR Random Glucose Calcium Total Bilirubin AST ALT Alkaline Phosphatase B-Natriuretic Peptide Total Protein Albumin Procalcitonin 0.17 H DOMONIQUE Screen Neg Anti-Smooth Muscle Ab Negative 07/04/18 07/04/18 07/05/18 14:44 14:44 06:17 WBC RBC Hgb 10.1 L Hct 31.4 L MCV MCH MCHC RDW Plt Count MPV Neut % (Auto) Lymph % (Auto) [place] % (Auto) Eos % (Auto) Baso % (Auto) Neut # (Auto) Lymph # (Auto) [place] # (Auto) Eos # (Auto) Baso # (Auto) WBC Differential Differential Comment Sodium 143 Potassium 3.6 D Chloride 105 Carbon Dioxide 25.1 Anion Gap 13 BUN 27 H Creatinine 1.16 H Estimated GFR 44 L Random Glucose 152 H Calcium 8.3 L Total Bilirubin 0.4 AST 201 H ALT 727 H Alkaline Phosphatase 139 H B-Natriuretic Peptide 639 H Total Protein 6.3 L Albumin 2.9 L Procalcitonin DOMONIQUE Screen Anti-Smooth Muscle Ab 07/05/18 10:16 WBC 16.0 H RBC 3.29 L Hgb 10.4 L Hct 32.7 L MCV 99.5 MCH 31.7 MCHC 31.8 L RDW 20.1 H Plt Count 160 D MPV 10.3 Neut % (Auto) 92.7 H Lymph % (Auto) 4.5 L Kent % (Auto) 2.6 Eos % (Auto) 0.0 Baso % (Auto) 0.2 Neut # (Auto) 14.8 H Lymph # (Auto) 0.7 L [place] # (Auto) 0.4 Eos # (Auto) 0.0 Baso # (Auto) 0.0 WBC Differential . Differential Comment Auto diff final Sodium Potassium Chloride Carbon Dioxide Anion Gap BUN Creatinine Estimated GFR Random Glucose Calcium Total Bilirubin AST ALT Alkaline Phosphatase B-Natriuretic Peptide Total Protein Albumin Procalcitonin DOMONIQUE Screen Anti-Smooth Muscle Ab Microbiology 07/04/18 11:14 Blood - Peripheral Aerobic Blood Culture - Preliminary No growth in 1 day 07/04/18 11:14 Blood - Peripheral Anaerobic Blood Culture - Preliminary No growth in 1 day 07/04/18 11:08 Blood - Peripheral Aerobic Blood Culture - Preliminary No growth in 1 day 07/04/18 11:08 Blood - Peripheral Anaerobic Blood Culture - Preliminary No growth in 1 day - Imaging Impressions Chest X-Ray 07/05/18 06:00 CONCLUSION: Right basilar airspace disease and small effusion with evidence of loss of volume. <Madiha Mariano - Last Filed: 07/05/18 15:32> - Labs CBC & Chem 7: 07/05/18 10:16 07/05/18 06:17 Laboratory Results - last 24 hr 07/03/18 07/03/1818 14:09 14:09 14:44 WBC RBC Hgb Hct MCV MCH MCHC RDW Plt Count MPV Neut % (Auto) Lymph % (Auto) [place] % (Auto) Eos % (Auto) Baso % (Auto) Neut # (Auto) Lymph # (Auto) [place] # (Auto) Eos # (Auto) Baso # (Auto) WBC Differential Differential Comment Sodium Potassium Chloride Carbon Dioxide Anion Gap BUN Creatinine Estimated GFR Random Glucose Calcium Iron TIBC % Saturation Ferritin Total Bilirubin AST ALT Alkaline Phosphatase B-Natriuretic Peptide 639 H Total Protein Albumin DOMONIQUE Screen Neg Anti-Smooth Muscle Ab Negative 07/05/18 07/05/18 07/05/18 06:17 06:17 10:16 WBC 16.0 H RBC 3.29 L Hgb 10.4 L Hct 32.7 L MCV 99.5 MCH 31.7 MCHC 31.8 L RDW 20.1 H Plt Count 160 D MPV 10.3 Neut % (Auto) 92.7 H Lymph % (Auto) 4.5 L Kent % (Auto) 2.6 Eos % (Auto) 0.0 Baso % (Auto) 0.2 Neut # (Auto) 14.8 H Lymph # (Auto) 0.7 L [place] # (Auto) 0.4 Eos # (Auto) 0.0 Baso # (Auto) 0.0 WBC Differential . Differential Comment Auto diff final Sodium 143 Potassium 3.6 D Chloride 105 Carbon Dioxide 25.1 Anion Gap 13 BUN 27 H Creatinine 1.16 H Estimated GFR 44 L Random Glucose 152 H Calcium 8.3 L Iron 27 L TIBC 319 % Saturation 8.5 L Ferritin 214 Total Bilirubin 0.4 AST 201 H ALT 727 H Alkaline Phosphatase 139 H B-Natriuretic Peptide Total Protein 6.3 L Albumin 2.9 L DOMONIQUE Screen Anti-Smooth Muscle Ab Microbiology 07/04/18 11:14 Blood - Peripheral Aerobic Blood Culture - Preliminary No growth in 1 day 07/04/18 11:14 Blood - Peripheral Anaerobic Blood Culture - Preliminary No growth in 1 day 07/04/18 11:08 Blood - Peripheral Aerobic Blood Culture - Preliminary No growth in 1 day 07/04/18 11:08 Blood - Peripheral Anaerobic Blood Culture - Preliminary No growth in 1 day - Imaging Impressions Chest X-Ray 07/05/18 06:00 CONCLUSION: Right basilar airspace disease and small effusion with evidence of loss of volume. <Jonna Laureano - Last Filed: 07/05/18 16:26> Assessment and Plan (1) Liver failure without hepatic coma Status: Acute Code(s): K72.90 - Hepatic failure, unspecified without coma - Plan Assessment: - Elevated LFTs with question of cirrhosis given thrombocytopenia and hypoalbuminemia Pt denies any personal or known family history of liver issues. Denies ETOH and history of. Only OTC medication she takes is Vit D and ASA 81 mg daily. New prescriptions from March are Pepcid and Mirtazapine. Of note, LFTs increased significantly on 07/02- hypotension 86/53- multifactorial ? shocked liver also pt currently being treated for CAP Liver work up: Liver US--> Normal echotexture without focal lesion or ductal dilatation of the liver. CT abdomen and pelvis WO IV contrast --> There is consolidation in the right lower lobe with air bronchograms and small right effusion. The findings could indicate pneumonia. The liver is unremarkable in appearance on this noncontrast exam. There is no focal abnormality. Mild diverticulosis. Simple cyst extending off the lower pole of left kidney. Hepatitis panel negative. Pending: DOMONIQUE, AMA, ASMA, ceruloplasmin, iron profile Plan: Etiology of elevated LFTs multifactorial, ? shocked liver and pt currently being treated for CAP Liver work up pending If discharged will need follow up with GI in [place] Will follow Pt has been seen and examined by myself and Dr. Laureano and this note is written on his behalf <Madiha Mariano - Last Filed: 07/05/18 15:32> (1) Liver failure without hepatic coma Status: Acute Code(s): K72.90 - Hepatic failure, unspecified without coma - Attending Attestation As above, work up pending. Will follow up with you periodically. <Jonna Laureano - Last Filed: 07/05/18 16:26>
[2018-07-05 15:52] LABS: % Iron Saturation 8.5 % (20-50)
[2018-07-05 23:51] LABS: HSV 1 IgM by IFA NEGATIVE; HSV 2 IgM by IFA NEGATIVE
[2018-07-06] MEDS: Aztreonam Inj 2 GM in Sodium Chloride 0.9% Inj 100 ML IV.SIG SCH ×3 (03:45→17:27)
[2018-07-06 03:51] LABS: DS DNA Ab (Crithidia) NEGATIVE (NEGATIVE)
[2018-07-06] MEDS: Heparin - SQ 10,000 UNITS/ML Vial SQ SCH ×3 (06:30→21:35)
[2018-07-06] MEDS: Levothyroxine 50 MCG Tablet PO SCH (06:30)
[2018-07-06] MEDS: Senna/Docusate Sodium 8.6/50 MG Tablet PO SCH ×2 (08:14→21:38)
[2018-07-06] MEDS ORDERED: levoFLOXacin 750 MG Tablet PO SCH (11:00)
--- NOTE | 2018-07-06 11:38 | XR ---
EXAM DATE: 07/06/2018 11:17 AM EDT AGE/SEX: 88 years / Female INDICATIONS: . Short of breath & cough. CLINICAL DATA: This is the patient's subsequent encounter. Patient reports that signs and symptoms h ave been present for 4 - 6 days and indicates a pain score of 0/10. MEDICAL/SURGICAL HISTORY: . Cerebral vascular accident. Heart murmur. Appendectomy. Cholecyst ectomy. COMPARISON: [facility] [place] [facility] [place] 2V PA&LAT, 07/05/2018. . FINDINGS: There is a stable elevation of right hemidiaphragm and blunting of the right lateral costophrenic ang le. Cardiomegaly is noted. The left lung is clear. Degenerative changes of the spine are seen. CONCLUSION: Right pleural effusion and elevation of the right hemidiaphragm is stable. Electronically signed by: Price Parish MD 07/06/2018 11:37 AM EDT
--- NOTE | 2018-07-06 12:28 | P.PNFP ---
Subjective Interval history: Patient seen and examined bedside. Patient is on 1 L O2 and appears to be breathing comfortably. She was anxious last night and she was given 1 mg of Ativan, which she states that her to sleep immediately. She did feel slightly groggy this morning but right now she is fine. No fever/chills. No chest pain/ shortness of breath/dizziness. <Jaelyn Turner - 07/06/18 12:28> Results - Labs Result diagrams: 07/05/18 10:16 07/05/18 06:17 <Michelle Strauss 07/06/18 12:54> Abnormal lab results 07/05/18 07/05/18 Range/Units 06:17 16:56 Iron 27 L (50-170) mcg/dL % Saturation 8.5 L (20-50) % Ammonia 10 L (11-32) mcmol/L Cardiac Enzymes 07/05/18 Range/Units 21:29 Troponin I 0.03 D (0.02-0.05) ng/mL <Michelle Strauss 07/06/18 12:54> Abnormal lab results 07/05/18 07/05/18 Range/Units 06:17 16:56 Iron 27 L (50-170) mcg/dL % Saturation 8.5 L (20-50) % Ammonia 10 L (11-32) mcmol/L Cardiac Enzymes 07/05/18 Range/Units 21:29 Troponin I 0.03 D (0.02-0.05) ng/mL <Jaelyn Turner - 07/06/18 12:28> - Imaging Impressions Chest X-Ray 07/06/18 00:00 CONCLUSION: Right pleural effusion and elevation of the right hemidiaphragm is stable. <Michelle Strauss 07/06/18 12:54> Impressions Chest X-Ray 07/06/18 00:00 CONCLUSION: Right pleural effusion and elevation of the right hemidiaphragm is stable. <Jaelyn Turner - 07/06/18 12:28> Physical Exam Vital signs: Vital Signs 07/05/18 16:00 07/05/18 16:28 07/05/18 19:22 Temperature 97.9 F 98.3 F Pulse Rate 94 H 90 108 H Respiratory Rate 18 15 18 Blood Pressure 110/57 L 125/60 Pulse Oximetry 92 L 94 L Pulse Oximetry [Resting on Room Air] Pulse Oximetry [Resting with Oxygen] 07/05/18 19:47 07/05/18 20:00 07/05/18 20:47 Temperature Pulse Rate 107 H 97 H 111 H Respiratory Rate 17 18 Blood Pressure 134/65 Pulse Oximetry 90 L 93 L Pulse Oximetry [Resting on Room Air] Pulse Oximetry [Resting with Oxygen] 07/06/18 00:35 07/06/18 03:50 07/06/18 04:20 Temperature 97.4 F L 98.0 F Pulse Rate 90 77 68 Respiratory Rate 18 18 14 Blood Pressure 122/59 L 117/56 L Pulse Oximetry 93 L 93 L Pulse Oximetry [Resting on Room Air] Pulse Oximetry [Resting with Oxygen] 07/06/18 08:00 07/06/18 08:06 07/06/18 10:59 Temperature 98.8 F Pulse Rate 99 H 70 Respiratory Rate 17 14 Blood Pressure 143/69 H Pulse Oximetry 91 L Pulse Oximetry [Resting on Room Air] 83 L Pulse Oximetry [Resting with Oxygen] 94 L Intake & Output 07/05/18 07/06/18 07/06/18 18:59 06:59 18:59 Intake Total 1210 / 1210 100 / 100 250 / 250 Balance 1210 / 1210 100 / 100 250 / 250 Weight 53.6 kg Intake: IV 350 / 350 100 / 100 250 / 250 Azactam Inj 2 GM In NS Inj 100 200 / 200 100 / 100 100 / 100 ML @ 200 mls/hr IV.SIG Q8H [facility] Rx#:[id number] Levaquin 750 mg Premix Inj 150 150 / 150 150 / 150 ML @ 100 mls/hr IV.SIG Q24H [facility] Rx#:[id number] Oral 860 / 860 Other: # Voids 6 # Incontinent Voids 4 Date of Last Bowel Movement 07/04/18 07/05/18 07/05/18 # Bowel Movements 1 <Michelle Strauss - 07/06/18 12:54> Vital Signs 07/05/18 12:10 07/05/18 16:00 07/05/18 16:28 Temperature 97.9 F Pulse Rate 90 94 H 90 Respiratory Rate 15 18 15 Blood Pressure 110/57 L Pulse Oximetry 95 92 L Pulse Oximetry [Resting on Room Air] Pulse Oximetry [Resting with Oxygen] 07/05/18 19:22 07/05/18 19:47 07/05/18 20:00 Temperature 98.3 F Pulse Rate 108 H 107 H 97 H Respiratory Rate 18 17 Blood Pressure 125/60 Pulse Oximetry 94 L 90 L Pulse Oximetry [Resting on Room Air] Pulse Oximetry [Resting with Oxygen] 07/05/18 20:47 07/06/18 00:35 07/06/18 03:50 Temperature 97.4 F L 98.0 F Pulse Rate 111 H 90 77 Respiratory Rate 18 18 18 Blood Pressure 134/65 122/59 L 117/56 L Pulse Oximetry 93 L 93 L 93 L Pulse Oximetry [Resting on Room Air] Pulse Oximetry [Resting with Oxygen] 07/06/18 04:20 07/06/18 08:00 07/06/18 08:06 Temperature 98.8 F Pulse Rate 68 99 H 70 Respiratory Rate 14 17 14 Blood Pressure 143/69 H Pulse Oximetry 91 L Pulse Oximetry [Resting on Room Air] Pulse Oximetry [Resting with Oxygen] 07/06/18 10:59 Temperature Pulse Rate Respiratory Rate Blood Pressure Pulse Oximetry Pulse Oximetry [Resting on Room Air] 83 L Pulse Oximetry [Resting with Oxygen] 94 L Intake & Output 07/05/18 07/06/18 07/06/18 18:59 06:59 18:59 Intake Total 1210 / 1210 100 / 100 150 / 150 Balance 1210 / 1210 100 / 100 150 / 150 Weight 53.6 kg Intake: IV 350 / 350 100 / 100 150 / 150 Azactam Inj 2 GM In NS Inj 100 200 / 200 100 / 100 ML @ 200 mls/hr IV.SIG Q8H [facility] Rx#:[id number] Levaquin 750 mg Premix Inj 150 150 / 150 150 / 150 ML @ 100 mls/hr IV.SIG Q24H [facility] Rx#:[id number] Oral 860 / 860 Other: # Voids 6 # Incontinent Voids 4 Date of Last Bowel Movement 07/04/18 07/05/18 07/05/18 # Bowel Movements 1 <Jaelyn Turner - 07/06/18 12:28> Narrative: GENERAL: well-nourished, well developed, in no acute distress SKIN: intact, no rash present HEENT: neck supple, no thyroid nodules appreciated CARDIO: Regular rate and rhythm, no murmurs RESP: Air sounds auscultated bilaterally, crackles in middle and lower lung lobes bilaterally, decreased breath sounds in right lower lung lobe ABD: normal bowel sounds, soft, not distended, no tenderness <Jaelyn Turner - 07/06/18 12:28> Assessment and Plan - Assessment (1) Elevated LFTs Code(s): R94.5 - Abnormal results of liver function studies Status: Acute Plan: Patient with significant elevation of LFTs since admission hx of MINIMAL alcohol intake (1/2 [place]) Likely transaminitis that has resolved with hydration, versus viral or autoimmune cause Echocardiogram within normal limits AST: 173 --> 701 --> 931-->371--> 201 ALT: 83--> 622 --> 1027-->875--> 727 T Bili: 0.7 --> 1.05 --> 0.8--> 0.6--> 0.4 Albumin: 2.6--> 3.2-->2.8--> 2.9 INR: 1.1 Urine protein: 100--> negative on 07/03/18 Direct bili: 0.3 GGT: 435 Acetaminophen level: less than 2.0 Hepatitis panel: NEGATIVE Follow-up LFTs this morning Imaging -Liver US WNL -Hepatitis panel WNL. -Abd CT w/o contrast: CONCLUSION: 1. There is consolidation in the right lower lobe with air bronchograms and small right effusion. The findings could indicate pneumonia. 2. The liver is unremarkable in appearance on this noncontrast exam. There is no focal abnormality. 3. Mild diverticulosis. 4. Simple cyst extending off the lower pole of left kidney. Follow-up DOMONIQUE, ceruloplasmin, HSV antibodies, VZV PCR (2) Thrombocytopenia Code(s): D69.6 - Thrombocytopenia, unspecified Status: Acute Plan: Resolved. Thrombocytopenia on 07/04 with platelet count 95 -Likely from acute liver injury versus heparin-induced thrombocytopenia. -Continue heparin -Continue to monitor daily -Path to review smear: No microangiopathic process (3) Pneumonia involving right lung Code(s): J18.9 - Pneumonia, unspecified organism Status: Acute Plan: Patient with evidence of consolidation and mild right pleural effusion in right lung base. Patient was in inpatient rehab 1 month ago so we will cover for HAP. Patient reports she is allergic to penicillins and gets hives. This occurred when she was a child. -Aztreonam 2 gm Q8h -Levofloxacin 750 mg per 24 hours.-Patient will be discharged with Levaquin p.o. continue a total of 7 days of antibiotic therapy, oral steroids, albuterol inhaler. -Duoneb Q6h -Incentive spirometer -Acapella Q6h -Swallow study: Normal -Blood culture: No growth 2 day -procalcitonin: 0.17 elevated -Add Lasix 20 IV twice daily for effusion Chest x-ray 07/06: Pleural effusion and elevation right hemidiaphragm. No change Chest x-ray 07/05: Right basilar airspace disease, small effusion with loss of volume Chest x-ray 07/02: Negative Chest x-ray 07/01: Lungs hypoinflated but clear, no acute abnormality CT 07/03: Consolidation right lower lobe with air bronchograms, small right effusion, could indicate pneumonia. (4) Oxygen desaturation Code(s): R09.02 - Hypoxemia Status: Acute Plan: Symptomatic oxygen desaturations to 85% with shortness of breath on activity. She did not require O2 at home. -Likely due to the pneumonia and effusion as seen on imaging, discussed with radiologist -Failed O2 walk test again today -No history of smoking/COPD, no history of asthma, no known history of heart disease See imaging above Echo with normal injection fraction Status post IV Solu-Medrol 120 mg on 07/03 DuoNeb treatments q6H (5) ARGELIA (acute kidney injury) Code(s): N17.9 - Acute kidney failure, unspecified Status: Acute Plan: BUN 20 and creatinine 1.24 on admission. Likely due to mild dehydration. Patient given to 1 L boluses of NS in the ED. -Holding IV fluid -Follow-up CMP today - Caution with nephrotoxins (6) Syncope Code(s): R55 - Syncope and collapse Status: Resolved Plan: 88-year-old presenting to the ED following syncopal episode after exiting a hot tub and admitted for observation due to second syncopal episode just prior to emergency department discharge. CBC in ED showed no signs of anemia, or electrolyte imbalances and LFTs slightly elevated. Urine analysis negative for UTI, with 100 protein. EKG showed sinus tachycardia with a heart rate of 119, multiple PVCs and Q waves in leads II, III and aVF consistent with prior inferior AL. Labs: -Serial troponin, CK-MB, and EKG ordered. Troponins <0.02 --> 0.10 --> 0.15 --> 0.13, ACS ruled out EKG with frequent PVCs; this continues throughout time in hospital on telemetry -Vitamin B12 level WNL -Glucose 232 on admission. Imaging: -CXR showed hypoinflated lungs that are grossly clear without acute pulmonary disease. -CT head showed extensive white matter atrophic changes without evidence of midline shift, mass lesion, hemorrhage, or acute infarction. -Carotid ultrasound ordered but patient declined. Orthostatic blood pressures reassuring PT consulted to eval and treat Medications: -Tylenol 650 mg p.o. every 4 hours as needed for pain -Zofran 4 mg IV every 6 hours as needed for nausea (7) Elevated troponin Code(s): R74.8 - Abnormal levels of other serum enzymes Status: Acute Plan: Resolved on 07/02/18 Pt presented to ER for syncope Troponins <0.02 --> 0.10 --> 0.15 --> 0.13 EKG with multiple PVCs (8) Hyperglycemia Code(s): R73.9 - Hyperglycemia, unspecified Status: Acute Plan: Prediabetes Patient without a known diagnosis of diabetes, however strong family history. Random glucose >200 on admission. Hemoglobin a1c: 6.3 (9) Hypothyroidism Code(s): E03.9 - Hypothyroidism, unspecified Status: Chronic Plan: Patient with history of hypothyroidism on levothyroxine. -will continue home levothyroxine 50 mcg PO daily. TSH WNL. (10) History of CVA (cerebrovascular accident) Code(s): Z86.73 - Personal history of transient ischemic attack (TIA), and cerebral infarction without residual deficits Status: Chronic Plan: Patient with history of CVA 3, most recent one month ago. 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 -Patient refuses carotid ultrasound -Patient refused head MRI (11) History of cardiac murmur Code(s): Z86.79 - Personal history of other diseases of the circulatory system Status: Chronic Plan: Patient has a history of unspecified heart murmur. Patient to be seen by television announcer in [place] within the next week for further workup. No murmur heard on clinical exam however patient's rhythm was irregular. Follow-up echocardiogram: Normal (12) History of gastroesophageal reflux (GERD) Code(s): Z87.19 - Personal history of other diseases of the digestive system Status: Chronic Plan: Patient with history of reflux, on famotidine and pantoprazole at home. -Continue home pantoprazole 40 mg p.o. daily. -Hold home famotidine 20 mg p.o. daily (13) Nutrition, metabolism, and development symptoms Code(s): R63.8 - Other symptoms and signs concerning food and fluid intake Status: Acute Plan: Diet: Regular diet Electrolytes: No significant electrolyte abnormalities at this time, continue to monitor and replete as necessary Fluids: No fluids at this time due to concern for CHF, p.o. fluids only (14) DVT prophylaxis Status: Acute Plan: DVT prophylaxis: SCDs, heparin 3 times daily <Jaelyn Turner - 07/06/18 12:05> (1) Pneumonia involving right lung Code(s): J18.9 - Pneumonia, unspecified organism Status: Acute (2) Thrombocytopenia Code(s): D69.6 - Thrombocytopenia, unspecified Status: Acute (3) Oxygen desaturation Code(s): R09.02 - Hypoxemia Status: Acute (4) ARGELIA (acute kidney injury) Code(s): N17.9 - Acute kidney failure, unspecified Status: Acute (5) Syncope Code(s): R55 - Syncope and collapse Status: Resolved (6) Elevated troponin Code(s): R74.8 - Abnormal levels of other serum enzymes Status: Acute (7) Hyperglycemia Code(s): R73.9 - Hyperglycemia, unspecified Status: Acute (8) Hypothyroidism Code(s): E03.9 - Hypothyroidism, unspecified Status: Chronic (9) History of CVA (cerebrovascular accident) Code(s): Z86.73 - Personal history of transient ischemic attack (TIA), and cerebral infarction without residual deficits Status: Chronic (10) History of cardiac murmur Code(s): Z86.79 - Personal history of other diseases of the circulatory system Status: Chronic (11) History of gastroesophageal reflux (GERD) Code(s): Z87.19 - Personal history of other diseases of the digestive system Status: Chronic (12) Nutrition, metabolism, and development symptoms Code(s): R63.8 - Other symptoms and signs concerning food and fluid intake Status: Acute (13) DVT prophylaxis Status: Acute (14) Elevated LFTs Code(s): R94.5 - Abnormal results of liver function studies Status: Resolved <Michelle Strauss - 07/06/18 12:54> - Assessment and Plan 88-year-old female, history of recent syncopal episodes, hypothyroidism, history of CVA, presents with additional syncopal episode and is found to have markedly increasing LFTs and oxygen desaturations, and ARGELIA. <Jaelyn Turner - 07/06/18 12:28> Discharge Planning: Pending improvement of O2 saturations, treatment of pneumonia and improvement clinically, safe discharge <Jaelyn Turner - 07/06/18 12:28> - Attending Attestation Patient seen, examined and discussed with the medicine team. I agree with the findings and the plan as documented. <Michelle Strauss - 07/06/18 12:54> <Jaelyn Turner - Last Filed: 07/06/18 12:05> (6) Syncope Qualifiers: Syncope type: unspecified Qualified Code(s): R55 - Syncope and collapse (9) Hypothyroidism Qualifiers: Hypothyroidism type: acquired Qualified Code(s): E03.9 - Hypothyroidism, unspecified <Michelle Strauss - Last Filed: 07/06/18 12:54> (5) Syncope Qualifiers: Syncope type: unspecified Qualified Code(s): R55 - Syncope and collapse (8) Hypothyroidism Qualifiers: Hypothyroidism type: acquired Qualified Code(s): E03.9 - Hypothyroidism, unspecified <Jaelyn Turner - Last Filed: 07/06/18 12:05> (6) Syncope Qualifiers: Syncope type: unspecified Qualified Code(s): R55 - Syncope and collapse (9) Hypothyroidism Qualifiers: Hypothyroidism type: acquired Qualified Code(s): E03.9 - Hypothyroidism, unspecified <Michelle Strauss - Last Filed: 07/06/18 12:54> (5) Syncope Qualifiers: Syncope type: unspecified Qualified Code(s): R55 - Syncope and collapse (8) Hypothyroidism Qualifiers: Hypothyroidism type: acquired Qualified Code(s): E03.9 - Hypothyroidism, unspecified
--- NOTE | 2018-07-06 13:17 | P.PNGI ---
Subjective Interval history: Pt resting in bed. States she is going home today, waiting for her ride to arrive. Denies nausea, vomiting, abdominal pain. Tolerating PO Physical Exam Vital signs: Vital Signs 07/05/18 16:00 07/05/18 16:28 07/05/18 19:22 Temperature 97.9 F 98.3 F Pulse Rate 94 H 90 108 H Respiratory Rate 18 15 18 Blood Pressure 110/57 L 125/60 Pulse Oximetry 92 L 94 L Pulse Oximetry [Resting on Room Air] Pulse Oximetry [Resting with Oxygen] 07/05/18 19:47 07/05/18 20:00 07/05/18 20:47 Temperature Pulse Rate 107 H 97 H 111 H Respiratory Rate 17 18 Blood Pressure 134/65 Pulse Oximetry 90 L 93 L Pulse Oximetry [Resting on Room Air] Pulse Oximetry [Resting with Oxygen] 07/06/18 00:35 07/06/18 03:50 07/06/18 04:20 Temperature 97.4 F L 98.0 F Pulse Rate 90 77 68 Respiratory Rate 18 18 14 Blood Pressure 122/59 L 117/56 L Pulse Oximetry 93 L 93 L Pulse Oximetry [Resting on Room Air] Pulse Oximetry [Resting with Oxygen] 07/06/18 08:00 07/06/18 08:06 07/06/18 10:59 Temperature 98.8 F Pulse Rate 99 H 70 Respiratory Rate 17 14 Blood Pressure 143/69 H Pulse Oximetry 91 L Pulse Oximetry [Resting on Room Air] 83 L Pulse Oximetry [Resting with Oxygen] 94 L 07/06/18 12:00 Temperature 98.5 F Pulse Rate 86 Respiratory Rate 18 Blood Pressure 117/61 Pulse Oximetry 93 L Pulse Oximetry [Resting on Room Air] Pulse Oximetry [Resting with Oxygen] Intake & Output 07/05/18 07/06/18 07/06/18 18:59 06:59 18:59 Intake Total 1210 / 1210 100 / 100 250 / 250 Balance 1210 / 1210 100 / 100 250 / 250 Weight 53.6 kg Intake: IV 350 / 350 100 / 100 250 / 250 Azactam Inj 2 GM In NS Inj 100 200 / 200 100 / 100 100 / 100 ML @ 200 mls/hr IV.SIG Q8H [facility] Rx#:[id number] Levaquin 750 mg Premix Inj 150 150 / 150 150 / 150 ML @ 100 mls/hr IV.SIG Q24H [facility] Rx#:[id number] Oral 860 / 860 Other: # Voids 6 # Incontinent Voids 4 Date of Last Bowel Movement 07/04/18 07/05/18 07/05/18 # Bowel Movements 1 - Constitutional no acute distress - Routine HEENT Exam Head: Present: normocephalic, atraumatic - Routine Respiratory Exam Absent: accessory muscle use - Routine Abdominal Exam Present: soft, normoactive bowel sounds. Absent: tenderness, distended - Routine Skin Exam Present: dry, warm - Routine Neurological Exam Present: alert, oriented X3 Results - Labs CBC & Chem 7: 07/05/18 10:16 07/05/18 06:17 Laboratory Results - last 24 hr 07/03/18 07/03/18 07/03/18 14:09 14:09 14:09 Iron TIBC % Saturation Ferritin Ammonia Troponin I Rheumatoid Factor Less than 14 DOMONIQUE Screen Neg Negative DOMONIQUE Titer ND DOMONIQUE Pattern ND SS-A Antibody <1.0 neg SS-B Antibody <1.0 neg Sm (Urias) Antibody <1.0 neg SM/BAR TURNER Antibody <1.0 neg Scl-70 Antibody <1.0 neg Anti-ds DNA Titer (Crith) ND Anti-ds DNA (Crithidia) Negative Anti-Smooth Muscle Ab Negative HSV I IgM Ab (IFA) Negative HSV II IgM Ab (IFA) Negative 07/05/18 07/05/18 07/05/18 06:17 16:56 21:29 Iron 27 L TIBC 319 % Saturation 8.5 L Ferritin 214 Ammonia 10 L Troponin I 0.03 D Rheumatoid Factor DOMONIQUE Screen DOMONIQUE Titer DOMONIQUE Pattern SS-A Antibody SS-B Antibody Sm (Urias) Antibody SM/BAR TURNER Antibody Scl-70 Antibody Anti-ds DNA Titer (Crith) Anti-ds DNA (Crithidia) Anti-Smooth Muscle Ab HSV I IgM Ab (IFA) HSV II IgM Ab (IFA) Microbiology 07/04/18 11:14 Blood - Peripheral Aerobic Blood Culture - Preliminary No growth in 2 days 07/04/18 11:14 Blood - Peripheral Anaerobic Blood Culture - Preliminary No growth in 2 days 07/04/18 11:08 Blood - Peripheral Aerobic Blood Culture - Preliminary No growth in 2 days 07/04/18 11:08 Blood - Peripheral Anaerobic Blood Culture - Preliminary No growth in 2 days - Imaging Impressions Chest X-Ray 07/06/18 00:00 CONCLUSION: Right pleural effusion and elevation of the right hemidiaphragm is stable. Assessment and Plan (1) Liver failure without hepatic coma Status: Acute Code(s): K72.90 - Hepatic failure, unspecified without coma - Plan Assessment: - Elevated LFTs with question of cirrhosis given thrombocytopenia and hypoalbuminemia Pt denies any personal or known family history of liver issues. Denies ETOH and history of. Only OTC medication she takes is Vit D and ASA 81 mg daily. New prescriptions from March are Pepcid and Mirtazapine. Of note, LFTs increased significantly on 07/02- hypotension 86/53- multifactorial ? shocked liver also pt currently being treated for CAP Liver work up: Liver US--> Normal echotexture without focal lesion or ductal dilatation of the liver. CT abdomen and pelvis WO IV contrast --> There is consolidation in the right lower lobe with air bronchograms and small right effusion. The findings could indicate pneumonia. The liver is unremarkable in appearance on this noncontrast exam. There is no focal abnormality. Mild diverticulosis. Simple cyst extending off the lower pole of left kidney. Hepatitis panel negative. Pending: DOMONIQUE, AMA, ASMA, ceruloplasmin, iron profile (07/06) Liver work up still pending. No changes overnight. Pt states she is being discharged today when her ride arrives. Plan: Etiology of elevated LFTs multifactorial, ? shocked liver and pt currently being treated for CAP Liver work up pending If discharged will need follow up with GI in [place] Will follow Pt has been seen and examined by myself and Dr. Laureano and this note is written on his behalf
[2018-07-06 13:20] LABS: Baso % (Auto) 0.1 % (0.0-2.0); Eos % (Auto) 0.1 % (0.0-4.0); Hematocrit 29.2 % (35.0-46.0); Hemoglobin 9.4 gm/dL (11.6-15.3); Lymph # (Auto) 3.3 th/mm3 (1.0-4.8); Lymph % (Auto) 22.8 % (9.0-44.0); Mean Corpuscular HGB Conc 32.3 % (32.0-36.0); Mean Corpuscular Hemoglobin 31.7 pg (27.0-34.0); Mean Corpuscular Volume 98.2 fL (80.0-100.0); Mean Platelet Volume 9.6 fL (7.0-11.0); Mono # (Auto) 1.1 th/mm3 (0.0-0.9); Mono % (Auto) 7.8 % (0.0-8.0); Neut # (Auto) 9.9 th/mm3 (1.8-7.7); Neut % (Auto) 69.2 % (16.0-70.0); Platelet Count 147 th/mm3 (150-450); Red Blood Count 2.97 mil/mm3 (4.00-5.30); Red Cell Distribution Width 19.6 % (11.6-17.2); White Blood Count 14.3 th/mm3 (4.0-11.0)
[2018-07-06 13:45] LABS: Carbon Dioxide 27.1 meq/L (21.0-32.0)
[2018-07-06 14:02] LABS: Platelet Morphology Normal (Normal)
--- NOTE | 2018-07-06 18:52 | ECG ---
Date Performed: 07/05/2018 Time Performed: 21:57:48 PTAGE: 88 years EKG: Sinus rhythm WITH OCCASIONAL VENTRICULAR PREMATURE COMPLEXES BORDERLINE LEFT AXIS DEVIATION LOW QRS VOLTAGE IN HI ECORDIAL LEADS NONSPECIFIC ST & T-WAVE ABNORMALITY BORDERLINE ECG PREVIOUS TRACING : 07/02/2018 04.44 Since the previous tracing, no significant change noted DOCTOR: Vasiliy Bose Interpretating Date/Time 07/06/2018 18:48:46
[2018-07-07] MEDS: Aztreonam Inj 2 GM in Sodium Chloride 0.9% Inj 100 ML IV.SIG SCH ×3 (01:16→10:30)
[2018-07-07] MEDS: Heparin - SQ 10,000 UNITS/ML Vial SQ SCH ×2 (06:18→14:43)
[2018-07-07] MEDS: Levothyroxine 50 MCG Tablet PO SCH (06:18)
[2018-07-07 07:51] LABS: Varicella Zoster IgM 0.12 (Negative)
[2018-07-07 07:59] LABS: Baso # (Auto) 0.1 th/mm3 (0.0-0.2); Baso % (Auto) 0.4 % (0.0-2.0); Eos # (Auto) 0.3 th/mm3 (0.0-0.4); Eos % (Auto) 1.9 % (0.0-4.0); Hemoglobin 9.7 gm/dL (11.6-15.3); Lymph # (Auto) 4.4 th/mm3 (1.0-4.8); Lymph % (Auto) 31.6 % (9.0-44.0); Mean Corpuscular HGB Conc 32.5 % (32.0-36.0); Mean Corpuscular Hemoglobin 31.4 pg (27.0-34.0); Mean Corpuscular Volume 96.6 fL (80.0-100.0); Mean Platelet Volume 9.5 fL (7.0-11.0); Mono # (Auto) 0.8 th/mm3 (0.0-0.9); Mono % (Auto) 5.5 % (0.0-8.0); Neut # (Auto) 8.4 th/mm3 (1.8-7.7); Neut % (Auto) 60.6 % (16.0-70.0); Platelet Count 185 th/mm3 (150-450); Red Blood Count 3.11 mil/mm3 (4.00-5.30); Red Cell Distribution Width 19.8 % (11.6-17.2); White Blood Count 13.8 th/mm3 (4.0-11.0)
[2018-07-07 08:32] LABS: Albumin 2.5 g/dL (3.4-5.0); Anion Gap 10 meq/L (5-15); Aspartate Aminotransferase 71 U/L (15-37); Blood Urea Nitrogen 24 mg/dL (7-18); Calcium 7.9 mg/dL (8.5-10.1); Carbon Dioxide 28.3 meq/L (21.0-32.0); Chloride 107 meq/L (98-107); Glomerular Filtration Rate 46 mL/min (>89); Glucose,Random 78 mg/dL (74-106); Potassium 3.7 meq/L (3.5-5.1); Sodium 145 meq/L (136-145)
[2018-07-07 08:36] LABS: Alanine Aminotransferase 415 U/L (10-53); Alkaline Phosphatase 113 U/L (45-117); Total Protein 5.8 g/dL (6.4-8.2)
[2018-07-07] MEDS: Senna/Docusate Sodium 8.6/50 MG Tablet PO SCH (08:38)
[2018-07-07 08:42] LABS: Eosinophils 1 % (0-4); Lymphocytes 18 % (9-44); Metamyelocytes 1 % (0-1); Monocytes 2 % (0-8); Myelocytes 3 % (0-0); Platelet Estimate Normal (Normal); Platelet Morphology Normal (Normal); Tallied Nucleated RBC 1 (0-0)
--- NOTE | 2018-07-07 10:22 | P.PNFP ---
Subjective Interval history: Patient seen and examined bedside this morning. No acute events overnight. Patient states she continues to have productive sputum, however she is still asymptomatic. She denies any shortness of breath. No fever/chills. No chest pain or dizziness when ambulating. <Jaelyn Turner - 07/07/18 10:40> Results - Labs Result diagrams: 07/07/18 07:35 07/07/18 07:33 <Michelle Strauss - 07/07/18 13:55> Abnormal lab results 07/06/18 07/07/18 07/07/18 Range/Units 12:29 07:33 07:35 WBC 13.8 H (4.0-11.0) th/mm3 RBC 3.11 L (4.00-5.30) mil/mm3 Hgb 9.7 L (11.6-15.3) gm/dL Hct 30.0 L (35.0-46.0) % RDW 19.8 H (11.6-17.2) % Neut # (Auto) 8.4 H (1.8-7.7) th/mm3 Seg Neuts % (Manual) 74 H (16-70) % Myelocytes % (Man) 3 H (0-0) % Abs Neuts (Manual) 10.9 H (1.8-7.7) th/mm3 Nucleated RBCs/100 WBC 1 H (0-0) /100 WBC Platelet Estimate Low L (Normal) BUN 24 H (7-18) mg/dL Creatinine 1.12 H (0.50-1.00) mg/dL Estimated GFR 46 L (>89) mL/min Calcium 7.9 L (8.5-10.1) mg/dL AST 71 H (15-37) U/L ALT 415 H (10-53) U/L Total Protein 5.8 L (6.4-8.2) g/dL Albumin 2.5 L (3.4-5.0) g/dL Short CBC 07/07/18 Range/Units 07:35 WBC 13.8 H (4.0-11.0) th/mm3 Hgb 9.7 L (11.6-15.3) gm/dL Hct 30.0 L (35.0-46.0) % Plt Count 185 (150-450) th/mm3 BMP 07/07/18 07:33 Sodium 145 Potassium 3.7 Chloride 107 Carbon Dioxide 28.3 BUN 24 H Creatinine 1.12 H Calcium 7.9 L Liver Function 07/07/18 Range/Units 07:33 Total Bilirubin 0.4 (0.2-1.0) mg/dL AST 71 H (15-37) U/L ALT 415 H (10-53) U/L Alkaline Phosphatase 113 (45-117) U/L Albumin 2.5 L (3.4-5.0) g/dL <Carlos A,Michelle - 07/07/18 13:55> Abnormal lab results 07/06/18 07/06/18 07/07/18 Range/Units 12:29 12:29 07:33 WBC 14.3 H (4.0-11.0) th/mm3 RBC 2.97 L (4.00-5.30) mil/mm3 Hgb 9.4 L (11.6-15.3) gm/dL Hct 29.2 L (35.0-46.0) % RDW 19.6 H (11.6-17.2) % Plt Count 147 L (150-450) th/mm3 Neut # (Auto) 9.9 H (1.8-7.7) th/mm3 [place] # (Auto) 1.1 H (0.0-0.9) th/mm3 Seg Neuts % (Manual) (16-70) % Myelocytes % (Man) (0-0) % Abs Neuts (Manual) (1.8-7.7) th/mm3 Nucleated RBCs/100 WBC (0-0) /100 WBC Platelet Estimate Low L (Normal) Potassium 3.0 L (3.5-5.1) meq/L BUN 28 H 24 H (7-18) mg/dL Creatinine 1.03 H 1.12 H (0.50-1.00) mg/dL Estimated GFR 51 L 46 L (>89) mL/min Calcium 8.0 L 7.9 L (8.5-10.1) mg/dL AST 71 H (15-37) U/L ALT 415 H (10-53) U/L Total Protein 5.8 L (6.4-8.2) g/dL Albumin 2.5 L (3.4-5.0) g/dL 07/07/18 Range/Units 07:35 WBC 13.8 H (4.0-11.0) th/mm3 RBC 3.11 L (4.00-5.30) mil/mm3 Hgb 9.7 L (11.6-15.3) gm/dL Hct 30.0 L (35.0-46.0) % RDW 19.8 H (11.6-17.2) % Plt Count (150-450) th/mm3 Neut # (Auto) 8.4 H (1.8-7.7) th/mm3 [place] # (Auto) (0.0-0.9) th/mm3 Seg Neuts % (Manual) 74 H (16-70) % Myelocytes % (Man) 3 H (0-0) % Abs Neuts (Manual) 10.9 H (1.8-7.7) th/mm3 Nucleated RBCs/100 WBC 1 H (0-0) /100 WBC Platelet Estimate (Normal) Potassium (3.5-5.1) meq/L BUN (7-18) mg/dL Creatinine (0.50-1.00) mg/dL Estimated GFR (>89) mL/min Calcium (8.5-10.1) mg/dL AST (15-37) U/L ALT (10-53) U/L Total Protein (6.4-8.2) g/dL Albumin (3.4-5.0) g/dL Short CBC 07/06/18 07/07/18 Range/Units 12:29 07:35 WBC 14.3 H 13.8 H (4.0-11.0) th/mm3 Hgb 9.4 L 9.7 L (11.6-15.3) gm/dL Hct 29.2 L 30.0 L (35.0-46.0) % Plt Count 147 L 185 (150-450) th/mm3 BMP 07/06/18 07/07/18 12:29 07:33 Sodium 143 145 Potassium 3.0 L 3.7 Chloride 105 107 Carbon Dioxide 27.1 28.3 BUN 28 H 24 H Creatinine 1.03 H 1.12 H Calcium 8.0 L 7.9 L Liver Function 07/07/18 Range/Units 07:33 Total Bilirubin 0.4 (0.2-1.0) mg/dL AST 71 H (15-37) U/L ALT 415 H (10-53) U/L Alkaline Phosphatase 113 (45-117) U/L Albumin 2.5 L (3.4-5.0) g/dL <Jaelyn Turner - 07/07/18 10:22> - Imaging Impressions Chest X-Ray 07/06/18 00:00 CONCLUSION: Right pleural effusion and elevation of the right hemidiaphragm is stable. <Jaelyn Turner - 07/07/18 10:22> Physical Exam Vital signs: Vital Signs 07/06/18 15:23 07/06/18 16:00 07/06/18 20:00 Temperature 98.5 F 98.1 F Pulse Rate 89 88 92 H Respiratory Rate 16 18 18 Blood Pressure 137/63 111/59 L Pulse Oximetry 91 L 96 Pulse Oximetry [Resting on Room Air] Pulse Oximetry [Resting with Oxygen] 07/06/18 21:18 07/06/18 23:55 07/07/18 00:00 Temperature 98.4 F Pulse Rate 76 118 H 84 Respiratory Rate 16 18 Blood Pressure 141/64 H Pulse Oximetry 94 L 98 Pulse Oximetry [Resting on Room Air] Pulse Oximetry [Resting with Oxygen] 07/07/18 03:54 07/07/18 03:55 07/07/18 04:00 Temperature 98.1 F Pulse Rate 91 H 94 H 93 H Respiratory Rate 17 16 Blood Pressure 120/59 L Pulse Oximetry 93 L Pulse Oximetry [Resting on Room Air] Pulse Oximetry [Resting with Oxygen] 07/07/18 08:00 07/07/18 09:15 07/07/18 10:03 Temperature 98.2 F Pulse Rate 74 103 H 83 Respiratory Rate 16 24 Blood Pressure 160/68 H Pulse Oximetry 90 L 91 L Pulse Oximetry [Resting on Room Air] Pulse Oximetry [Resting with Oxygen] 07/07/18 10:15 07/07/18 12:00 07/07/18 13:03 Temperature 98.8 F Pulse Rate 99 H 99 H Respiratory Rate 18 Blood Pressure 120/59 L Pulse Oximetry 92 L Pulse Oximetry [Resting on Room Air] 86 L Pulse Oximetry [Resting with Oxygen] 92 L Intake & Output 07/06/18 07/07/18 07/07/18 18:59 06:59 18:59 Intake Total 730 / 730 200 / 200 100 / 100 Balance 730 / 730 200 / 200 100 / 100 Weight 55.7 kg Intake: IV 250 / 250 200 / 200 100 / 100 Azactam Inj 2 GM In NS Inj 100 100 / 100 200 / 200 100 / 100 ML @ 200 mls/hr IV.SIG Q8H [facility] Rx#:[id number] Levaquin 750 mg Premix Inj 150 150 / 150 ML @ 100 mls/hr IV.SIG Q24H [facility] Rx#:[id number] Oral 480 / 480 Other: # Voids 2 # Incontinent Voids 4 Date of Last Bowel Movement 07/05/18 07/05/18 # Bowel Movements 0 <Carlos AMichelle - 07/07/18 13:55> Vital Signs 07/06/18 10:59 07/06/18 12:00 07/06/18 15:23 Temperature 98.5 F Pulse Rate 86 89 Respiratory Rate 18 16 Blood Pressure 117/61 Pulse Oximetry 93 L Pulse Oximetry [Resting on Room Air] 83 L Pulse Oximetry [Resting with Oxygen] 94 L 07/06/18 16:00 07/06/18 20:00 07/06/18 21:18 Temperature 98.5 F 98.1 F Pulse Rate 88 92 H 76 Respiratory Rate 18 18 16 Blood Pressure 137/63 111/59 L Pulse Oximetry 91 L 96 94 L Pulse Oximetry [Resting on Room Air] Pulse Oximetry [Resting with Oxygen] 07/06/18 23:55 07/07/18 00:00 07/07/18 03:54 Temperature 98.4 F Pulse Rate 118 H 84 91 H Respiratory Rate 18 17 Blood Pressure 141/64 H Pulse Oximetry 98 Pulse Oximetry [Resting on Room Air] Pulse Oximetry [Resting with Oxygen] 07/07/18 03:55 07/07/18 04:00 07/07/18 08:00 Temperature 98.1 F 98.2 F Pulse Rate 94 H 93 H 74 Respiratory Rate 16 16 Blood Pressure 120/59 L 160/68 H Pulse Oximetry 93 L 90 L Pulse Oximetry [Resting on Room Air] Pulse Oximetry [Resting with Oxygen] 07/07/18 09:15 07/07/18 10:03 Temperature Pulse Rate 103 H 83 Respiratory Rate 24 Blood Pressure Pulse Oximetry 91 L Pulse Oximetry [Resting on Room Air] Pulse Oximetry [Resting with Oxygen] Intake & Output 07/06/18 07/07/18 07/07/18 18:59 06:59 18:59 Intake Total 730 / 730 200 / 200 Balance 730 / 730 200 / 200 Weight 55.7 kg Intake: IV 250 / 250 200 / 200 Azactam Inj 2 GM In NS Inj 100 100 / 100 200 / 200 ML @ 200 mls/hr IV.SIG Q8H [facility] Rx#:[id number] Levaquin 750 mg Premix Inj 150 150 / 150 ML @ 100 mls/hr IV.SIG Q24H [facility] Rx#:[id number] Oral 480 / 480 Other: # Voids 2 # Incontinent Voids 4 Date of Last Bowel Movement 07/05/18 07/05/18 # Bowel Movements 0 <Jaelyn Turner - 07/07/18 10:22> Narrative: GENERAL: well-nourished, well developed, in no acute distress SKIN: intact, no rash present HEENT: neck supple, no thyroid nodules appreciated CARDIO: Regular rate and rhythm, no murmurs RESP: Air sounds auscultated bilaterally, clear lung lott throughout, proved respiratory exam ABD: normal bowel sounds, soft, not distended, no tenderness <Jaelyn Turner - 07/07/18 10:40> Assessment and Plan - Assessment (1) Elevated LFTs Code(s): R94.5 - Abnormal results of liver function studies Status: Resolved (2) Pneumonia involving right lung Code(s): J18.9 - Pneumonia, unspecified organism Status: Acute (3) Thrombocytopenia Code(s): D69.6 - Thrombocytopenia, unspecified Status: Acute (4) Oxygen desaturation Code(s): R09.02 - Hypoxemia Status: Acute (5) ARGELIA (acute kidney injury) Code(s): N17.9 - Acute kidney failure, unspecified Status: Acute (6) Syncope Code(s): R55 - Syncope and collapse Status: Resolved (7) Elevated troponin Code(s): R74.8 - Abnormal levels of other serum enzymes Status: Acute (8) Hyperglycemia Code(s): R73.9 - Hyperglycemia, unspecified Status: Acute (9) Hypothyroidism Code(s): E03.9 - Hypothyroidism, unspecified Status: Chronic (10) History of CVA (cerebrovascular accident) Code(s): Z86.73 - Personal history of transient ischemic attack (TIA), and cerebral infarction without residual deficits Status: Chronic (11) History of cardiac murmur Code(s): Z86.79 - Personal history of other diseases of the circulatory system Status: Chronic (12) History of gastroesophageal reflux (GERD) Code(s): Z87.19 - Personal history of other diseases of the digestive system Status: Chronic (13) Nutrition, metabolism, and development symptoms Code(s): R63.8 - Other symptoms and signs concerning food and fluid intake Status: Acute (14) DVT prophylaxis Status: Acute <Michelle Strauss - 07/07/18 13:55> (1) Elevated LFTs Code(s): R94.5 - Abnormal results of liver function studies Status: Resolved Plan: Patient with significant elevation of LFTs since admission hx of MINIMAL alcohol intake (1/2 [place]) Likely transaminitis that has resolved with hydration, versus viral or autoimmune cause Echocardiogram within normal limits AST: 173 --> 701 --> 931-->371--> 201 ALT: 83--> 622 --> 1027-->875--> 727 T Bili: 0.7 --> 1.05 --> 0.8--> 0.6--> 0.4 Albumin: 2.6--> 3.2-->2.8--> 2.9 INR: 1.1 Urine protein: 100--> negative on 07/03/18 Direct bili: 0.3 GGT: 435 Acetaminophen level: less than 2.0 Hepatitis panel: NEGATIVE Follow-up LFTs this morning Imaging -Liver US WNL -Hepatitis panel WNL. -Abd CT w/o contrast: CONCLUSION: 1. There is consolidation in the right lower lobe with air bronchograms and small right effusion. The findings could indicate pneumonia. 2. The liver is unremarkable in appearance on this noncontrast exam. There is no focal abnormality. 3. Mild diverticulosis. 4. Simple cyst extending off the lower pole of left kidney. Follow-up DOMONIQUE, ceruloplasmin, HSV antibodies, VZV PCR (2) Pneumonia involving right lung Code(s): J18.9 - Pneumonia, unspecified organism Status: Acute Plan: Patient with evidence of consolidation and mild right pleural effusion in right lung base. Patient was in inpatient rehab 1 month ago so we will cover for HAP. Patient reports she is allergic to penicillins and gets hives. This occurred when she was a child. -Aztreonam 2 gm Q8h -Levofloxacin 750 mg per 24 hours. -Incentive spirometer -Acapella Q6h -Swallow study: Normal -Blood culture: No growth 2 day -procalcitonin: 0.17 elevated - Lasix 20 IV twice daily for effusion To DC on 3 more days of levofloxacin 750 mg daily to complete 7 day course, Lasix 20 mg p.o. daily 5 days for desaturations/pleural effusion, and nebulizer treatments Chest x-ray 07/06: Pleural effusion and elevation right hemidiaphragm. No change Chest x-ray 07/05: Right basilar airspace disease, small effusion with loss of volume Chest x-ray 07/02: Negative Chest x-ray 07/01: Lungs hypoinflated but clear, no acute abnormality CT 07/03: Consolidation right lower lobe with air bronchograms, small right effusion, could indicate pneumonia. (3) Thrombocytopenia Code(s): D69.6 - Thrombocytopenia, unspecified Status: Acute Plan: Resolved. Thrombocytopenia on 07/04 with platelet count 95 -Likely from acute liver injury versus heparin-induced thrombocytopenia. -Continue heparin -Continue to monitor daily -Path to review smear: No microangiopathic process (4) Oxygen desaturation Code(s): R09.02 - Hypoxemia Status: Acute Plan: Symptomatic oxygen desaturations to 85% with shortness of breath on activity. She did not require O2 at home. -Likely due to the pneumonia and effusion as seen on imaging, discussed with radiologist. Improvement on clinical respiratory exam with addition of Lasix on 07/06. We will plan to DC on Lasix 5 days -Failed O2 walk test x 2 days -No history of smoking/COPD, no history of asthma, no known history of heart disease See imaging above Echo with normal injection fraction (5) ARGELIA (acute kidney injury) Code(s): N17.9 - Acute kidney failure, unspecified Status: Acute Plan: BUN 20 and creatinine 1.24 on admission. Likely due to mild dehydration. Patient given to 1 L boluses of NS in the ED. -Holding IV fluid -Creatinine range of 1.03-1.16 f/u w/ PCP or nephro as outpatient (6) Syncope Code(s): R55 - Syncope and collapse Status: Resolved Plan: 88-year-old presenting to the ED following syncopal episode after exiting a hot tub and admitted for observation due to second syncopal episode just prior to emergency department discharge. CBC in ED showed no signs of anemia, or electrolyte imbalances and LFTs slightly elevated. Urine analysis negative for UTI, with 100 protein. EKG showed sinus tachycardia with a heart rate of 119, multiple PVCs and Q waves in leads II, III and aVF consistent with prior inferior [place]. Labs: -Serial troponin, CK-MB, and EKG ordered. Troponins <0.02 --> 0.10 --> 0.15 --> 0.13, ACS ruled out EKG with frequent PVCs; this continues throughout time in hospital on telemetry -Vitamin B12 level WNL -Glucose WNL Imaging: -CXR showed hypoinflated lungs that are grossly clear without acute pulmonary disease. -CT head showed extensive white matter atrophic changes without evidence of midline shift, mass lesion, hemorrhage, or acute infarction. -Carotid ultrasound ordered but patient declined. Orthostatic blood pressures reassuring PT consulted to eval and treat, cleared Medications: -Tylenol 650 mg p.o. every 4 hours as needed for pain -Zofran 4 mg IV every 6 hours as needed for nausea (7) Elevated troponin Code(s): R74.8 - Abnormal levels of other serum enzymes Status: Acute Plan: Resolved on 07/02/18 Pt presented to ER for syncope Troponins <0.02 --> 0.10 --> 0.15 --> 0.13 EKG with multiple PVCs (8) Hyperglycemia Code(s): R73.9 - Hyperglycemia, unspecified Status: Acute Plan: Prediabetes Patient without a known diagnosis of diabetes, however strong family history. Random glucose >200 on admission. Hemoglobin a1c: 6.3 (9) Hypothyroidism Code(s): E03.9 - Hypothyroidism, unspecified Status: Chronic Plan: Patient with history of hypothyroidism on levothyroxine. -will continue home levothyroxine 50 mcg PO daily. TSH WNL. (10) History of CVA (cerebrovascular accident) Code(s): Z86.73 - Personal history of transient ischemic attack (TIA), and cerebral infarction without residual deficits Status: Chronic Plan: Patient with history of CVA 3, most recent one month ago. 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 -Patient refuses carotid ultrasound -Patient refused head MRI (11) History of cardiac murmur Code(s): Z86.79 - Personal history of other diseases of the circulatory system Status: Chronic Plan: Patient has a history of unspecified heart murmur. Patient to be seen by ultrasound tester in [place] within the next week for further workup. No murmur heard on clinical exam however patient's rhythm was irregular. Follow-up echocardiogram: Normal (12) History of gastroesophageal reflux (GERD) Code(s): Z87.19 - Personal history of other diseases of the digestive system Status: Chronic Plan: Patient with history of reflux, on famotidine and pantoprazole at home. -Continue home pantoprazole 40 mg p.o. daily. -Hold home famotidine 20 mg p.o. daily (13) Nutrition, metabolism, and development symptoms Code(s): R63.8 - Other symptoms and signs concerning food and fluid intake Status: Acute Plan: Diet: Regular diet Electrolytes: No significant electrolyte abnormalities at this time, continue to monitor and replete as necessary Fluids: No fluids at this time due to concern for CHF, p.o. fluids only (14) DVT prophylaxis Status: Acute Plan: DVT prophylaxis: SCDs, heparin 3 times daily <Jaelyn Turner - 07/07/18 10:28> - Assessment and Plan 88-year-old female, history of recent syncopal episodes, hypothyroidism, history of CVA, presents with additional syncopal episode and is found to have markedly increasing LFTs and oxygen desaturations, and ARGELIA. <Jaelyn Turner - 07/07/18 10:40> Discharge Planning: Cleared for DC today, pending retrieval of oxygen tank, communicating with case management <Jaelyn Turner - 07/07/18 10:40> - Attending Attestation Patient seen and examined, discussed with the medicine team. She will be discharged to her family today with oxygen. I agree with the plan as documented. <Michelle Strauss - 07/07/18 13:55> <Jaelyn Turner - Last Filed: 07/07/18 10:28> (6) Syncope Qualifiers: Syncope type: unspecified Qualified Code(s): R55 - Syncope and collapse (9) Hypothyroidism Qualifiers: Hypothyroidism type: acquired Qualified Code(s): E03.9 - Hypothyroidism, unspecified <Michelle Strauss - Last Filed: 07/07/18 13:55> (6) Syncope Qualifiers: Syncope type: unspecified Qualified Code(s): R55 - Syncope and collapse (9) Hypothyroidism Qualifiers: Hypothyroidism type: acquired Qualified Code(s): E03.9 - Hypothyroidism, unspecified <Jaelyn Turner - Last Filed: 07/07/18 10:28> (6) Syncope Qualifiers: Syncope type: unspecified Qualified Code(s): R55 - Syncope and collapse (9) Hypothyroidism Qualifiers: Hypothyroidism type: acquired Qualified Code(s): E03.9 - Hypothyroidism, unspecified <Michelle Strauss - Last Filed: 07/07/18 13:55> (6) Syncope Qualifiers: Syncope type: unspecified Qualified Code(s): R55 - Syncope and collapse (9) Hypothyroidism Qualifiers: Hypothyroidism type: acquired Qualified Code(s): E03.9 - Hypothyroidism, unspecified
[2018-07-07] MEDS ORDERED: levoFLOXacin 750 MG Tablet PO SCH (11:00)
[2018-07-07 13:04] VITALS: PULSE 99
--- NOTE | 2018-07-07 13:08 | P.PNGI ---
Subjective Interval history: Patient is alert, weakened secondary to immobility but seems to be feeling better as far as no abdominal pain no nausea no vomiting current hemoglobin 9.7 , LFTs are continuing to decrease with AST 71 ALT 415 and normal bilirubin is 0.4, alkaline phosphatase now normal at 113. <Michelle Waggoner - Last Filed: 07/07/18 13:04> Physical Exam Vital signs: Vital Signs 07/06/18 15:23 07/06/18 16:00 07/06/18 20:00 Temperature 98.5 F 98.1 F Pulse Rate 89 88 92 H Respiratory Rate 16 18 18 Blood Pressure 137/63 111/59 L Pulse Oximetry 91 L 96 Pulse Oximetry [Resting on Room Air] Pulse Oximetry [Resting with Oxygen] 07/06/18 21:18 07/06/18 23:55 07/07/18 00:00 Temperature 98.4 F Pulse Rate 76 118 H 84 Respiratory Rate 16 18 Blood Pressure 141/64 H Pulse Oximetry 94 L 98 Pulse Oximetry [Resting on Room Air] Pulse Oximetry [Resting with Oxygen] 07/07/18 03:54 07/07/18 03:55 07/07/18 04:00 Temperature 98.1 F Pulse Rate 91 H 94 H 93 H Respiratory Rate 17 16 Blood Pressure 120/59 L Pulse Oximetry 93 L Pulse Oximetry [Resting on Room Air] Pulse Oximetry [Resting with Oxygen] 07/07/18 08:00 07/07/18 09:15 07/07/18 10:03 Temperature 98.2 F Pulse Rate 74 103 H 83 Respiratory Rate 16 24 Blood Pressure 160/68 H Pulse Oximetry 90 L 91 L Pulse Oximetry [Resting on Room Air] Pulse Oximetry [Resting with Oxygen] 07/07/18 10:15 Temperature Pulse Rate Respiratory Rate Blood Pressure Pulse Oximetry Pulse Oximetry [Resting on Room Air] 86 L Pulse Oximetry [Resting with Oxygen] 92 L Intake & Output 07/06/18 07/07/18 07/07/18 18:59 06:59 18:59 Intake Total 730 / 730 200 / 200 100 / 100 Balance 730 / 730 200 / 200 100 / 100 Weight 55.7 kg Intake: IV 250 / 250 200 / 200 100 / 100 Azactam Inj 2 GM In NS Inj 100 100 / 100 200 / 200 100 / 100 ML @ 200 mls/hr IV.SIG Q8H [facility] Rx#:[id number] Levaquin 750 mg Premix Inj 150 150 / 150 ML @ 100 mls/hr IV.SIG Q24H [facility] Rx#:[id number] Oral 480 / 480 Other: # Voids 2 # Incontinent Voids 4 Date of Last Bowel Movement 07/05/18 07/05/18 # Bowel Movements 0 - Constitutional no acute distress - Routine HEENT Exam Head: Present: normocephalic ENT: Present: mucous membranes moist - Routine Neck Exam Present: supple - Routine Respiratory Exam Present: accessory muscle use (Even, unlabored) - Routine Abdominal Exam Present: soft (Round, bowel sounds active, note urine incontinence which appears to be chronic) <Michelle Waggoner - Last Filed: 07/07/18 13:04> Vital signs: Vital Signs 07/06/18 20:00 07/06/18 21:18 07/06/18 23:55 Temperature 98.1 F Pulse Rate 92 H 76 118 H Respiratory Rate 18 16 Blood Pressure 111/59 L Pulse Oximetry 96 94 L Pulse Oximetry [Resting on Room Air] Pulse Oximetry [Resting with Oxygen] 07/07/18 00:00 07/07/18 03:54 07/07/18 03:55 Temperature 98.4 F Pulse Rate 84 91 H 94 H Respiratory Rate 18 17 Blood Pressure 141/64 H Pulse Oximetry 98 Pulse Oximetry [Resting on Room Air] Pulse Oximetry [Resting with Oxygen] 07/07/18 04:00 07/07/18 08:00 07/07/18 09:15 Temperature 98.1 F 98.2 F Pulse Rate 93 H 74 103 H Respiratory Rate 16 16 24 Blood Pressure 120/59 L 160/68 H Pulse Oximetry 93 L 90 L 91 L Pulse Oximetry [Resting on Room Air] Pulse Oximetry [Resting with Oxygen] 07/07/18 10:03 07/07/18 10:15 07/07/18 12:00 Temperature 98.8 F Pulse Rate 83 99 H Respiratory Rate 18 Blood Pressure 120/59 L Pulse Oximetry 92 L Pulse Oximetry [Resting on Room Air] 86 L Pulse Oximetry [Resting with Oxygen] 92 L 07/07/18 13:03 Temperature Pulse Rate 99 H Respiratory Rate Blood Pressure Pulse Oximetry Pulse Oximetry [Resting on Room Air] Pulse Oximetry [Resting with Oxygen] Intake & Output 07/06/18 07/07/18 07/07/18 18:59 06:59 18:59 Intake Total 730 / 730 200 / 200 100 / 100 Balance 730 / 730 200 / 200 100 / 100 Weight 55.7 kg Intake: IV 250 / 250 200 / 200 100 / 100 Azactam Inj 2 GM In NS Inj 100 100 / 100 200 / 200 100 / 100 ML @ 200 mls/hr IV.SIG Q8H [facility] Rx#:[id number] Levaquin 750 mg Premix Inj 150 150 / 150 ML @ 100 mls/hr IV.SIG Q24H [facility] Rx#:[id number] Oral 480 / 480 Other: # Voids 2 # Incontinent Voids 4 Date of Last Bowel Movement 07/05/18 07/05/18 # Bowel Movements 0 <Jonna Laureano A - Last Filed: 07/07/18 18:41> Results - Labs CBC & Chem 7: 07/07/18 07:35 07/07/18 07:33 Laboratory Results - last 24 hr 07/03/18 07/03/18 07/03/18 14:09 14:09 14:09 WBC RBC Hgb Hct MCV MCH MCHC RDW Plt Count MPV Prelim Diff (Auto) Neut % (Auto) Lymph % (Auto) [place] % (Auto) Eos % (Auto) Baso % (Auto) Neut # (Auto) Lymph # (Auto) [place] # (Auto) Eos # (Auto) Baso # (Auto) WBC Differential Diff Scan Seg Neuts % (Manual) Band Neuts % (Manual) Lymphocytes % (Manual) Monocytes % (Manual) Eosinophils % (Manual) Metamyelocytes % (Man) Myelocytes % (Man) Abs Neuts (Manual) Nucleated RBCs/100 WBC Differential Comment Platelet Estimate Platelet Morphology Sodium Potassium Chloride Carbon Dioxide Anion Gap BUN Creatinine Estimated GFR Random Glucose Calcium Total Bilirubin AST ALT Alkaline Phosphatase Total Protein Albumin Ceruloplasmin 47 HCV RNA (PCR) IUs/ml Less than 15 HCV RNA PCR log IUs/ml Less than 1.18 VZV IgM Antibody 0.12 07/06/18 07/06/18 07/07/18 12:29 12:29 07:33 WBC 14.3 H RBC 2.97 L Hgb 9.4 L Hct 29.2 L MCV 98.2 MCH 31.7 MCHC 32.3 RDW 19.6 H Plt Count 147 L MPV 9.6 Prelim Diff (Auto) Slide review pending Neut % (Auto) 69.2 Lymph % (Auto) 22.8 Redwood % (Auto) 7.8 Eos % (Auto) 0.1 Baso % (Auto) 0.1 Neut # (Auto) 9.9 H Lymph # (Auto) 3.3 Redwood # (Auto) 1.1 H Eos # (Auto) 0.0 Baso # (Auto) 0.0 WBC Differential . Diff Scan Auto diff confirmed Seg Neuts % (Manual) Band Neuts % (Manual) Lymphocytes % (Manual) Monocytes % (Manual) Eosinophils % (Manual) Metamyelocytes % (Man) Myelocytes % (Man) Abs Neuts (Manual) Nucleated RBCs/100 WBC Differential Comment . Platelet Estimate Low L Platelet Morphology Normal Sodium 143 145 Potassium 3.0 L 3.7 Chloride 105 107 Carbon Dioxide 27.1 28.3 Anion Gap 11 10 BUN 28 H 24 H Creatinine 1.03 H 1.12 H Estimated GFR 51 L 46 L Random Glucose 90 78 Calcium 8.0 L 7.9 L Total Bilirubin 0.4 AST 71 H ALT 415 H Alkaline Phosphatase 113 Total Protein 5.8 L Albumin 2.5 L Ceruloplasmin HCV RNA (PCR) IUs/ml HCV RNA PCR log IUs/ml VZV IgM Antibody 07/07/18 07:35 WBC 13.8 H RBC 3.11 L Hgb 9.7 L Hct 30.0 L MCV 96.6 MCH 31.4 MCHC 32.5 RDW 19.8 H Plt Count 185 MPV 9.5 Prelim Diff (Auto) Slide review pending Neut % (Auto) 60.6 Lymph % (Auto) 31.6 Red[place] % (Auto) 5.5 Eos % (Auto) 1.9 Baso % (Auto) 0.4 Neut # (Auto) 8.4 H Lymph # (Auto) 4.4 [place] # (Auto) 0.8 Eos # (Auto) 0.3 Baso # (Auto) 0.1 WBC Differential Manual diff final Diff Scan Seg Neuts % (Manual) 74 H Band Neuts % (Manual) 1 Lymphocytes % (Manual) 18 Monocytes % (Manual) 2 Eosinophils % (Manual) 1 Metamyelocytes % (Man) 1 Myelocytes % (Man) 3 H Abs Neuts (Manual) 10.9 H Nucleated RBCs/100 WBC 1 H Differential Comment . Platelet Estimate Normal Platelet Morphology Normal Sodium Potassium Chloride Carbon Dioxide Anion Gap BUN Creatinine Estimated GFR Random Glucose Calcium Total Bilirubin AST ALT Alkaline Phosphatase Total Protein Albumin Ceruloplasmin HCV RNA (PCR) IUs/ml HCV RNA PCR log IUs/ml VZV IgM Antibody Microbiology 07/04/18 11:14 Blood - Peripheral Aerobic Blood Culture - Preliminary No growth in 3 days 07/04/18 11:14 Blood - Peripheral Anaerobic Blood Culture - Preliminary No growth in 3 days 07/04/18 11:08 Blood - Peripheral Aerobic Blood Culture - Preliminary No growth in 3 days 07/04/18 11:08 Blood - Peripheral Anaerobic Blood Culture - Preliminary No growth in 3 days <Michelle Waggoner - Last Filed: 07/07/18 13:04> - Labs CBC & Chem 7: 07/07/18 07:35 07/07/18 07:33 Laboratory Results - last 24 hr 07/03/18 07/03/18 07/03/18 14:09 14:09 14:09 WBC RBC Hgb Hct MCV MCH MCHC RDW Plt Count MPV Prelim Diff (Auto) Neut % (Auto) Lymph % (Auto) Redwood % (Auto) Eos % (Auto) Baso % (Auto) Neut # (Auto) Lymph # (Auto) [place] # (Auto) Eos # (Auto) Baso # (Auto) WBC Differential Seg Neuts % (Manual) Band Neuts % (Manual) Lymphocytes % (Manual) Monocytes % (Manual) Eosinophils % (Manual) Metamyelocytes % (Man) Myelocytes % (Man) Abs Neuts (Manual) Nucleated RBCs/100 WBC Differential Comment Platelet Estimate Platelet Morphology Sodium Potassium Chloride Carbon Dioxide Anion Gap BUN Creatinine Estimated GFR Random Glucose Calcium Total Bilirubin AST ALT Alkaline Phosphatase Total Protein Albumin Ceruloplasmin 47 HCV RNA (PCR) IUs/ml Less than 15 HCV RNA PCR log IUs/ml Less than 1.18 VZV IgM Antibody 0.12 07/07/18 07/07/18 07:33 07:35 WBC 13.8 H RBC 3.11 L Hgb 9.7 L Hct 30.0 L MCV 96.6 MCH 31.4 MCHC 32.5 RDW 19.8 H Plt Count 185 MPV 9.5 Prelim Diff (Auto) Slide review pending Neut % (Auto) 60.6 Lymph % (Auto) 31.6 Redwood % (Auto) 5.5 Eos % (Auto) 1.9 Baso % (Auto) 0.4 Neut # (Auto) 8.4 H Lymph # (Auto) 4.4 Redwood # (Auto) 0.8 Eos # (Auto) 0.3 Baso # (Auto) 0.1 WBC Differential Manual diff final Seg Neuts % (Manual) 74 H Band Neuts % (Manual) 1 Lymphocytes % (Manual) 18 Monocytes % (Manual) 2 Eosinophils % (Manual) 1 Metamyelocytes % (Man) 1 Myelocytes % (Man) 3 H Abs Neuts (Manual) 10.9 H Nucleated RBCs/100 WBC 1 H Differential Comment . Platelet Estimate Normal Platelet Morphology Normal Sodium 145 Potassium 3.7 Chloride 107 Carbon Dioxide 28.3 Anion Gap 10 BUN 24 H Creatinine 1.12 H Estimated GFR 46 L Random Glucose 78 Calcium 7.9 L Total Bilirubin 0.4 AST 71 H ALT 415 H Alkaline Phosphatase 113 Total Protein 5.8 L Albumin 2.5 L Ceruloplasmin HCV RNA (PCR) IUs/ml HCV RNA PCR log IUs/ml VZV IgM Antibody Microbiology 07/04/18 11:14 Blood - Peripheral Aerobic Blood Culture - Preliminary No growth in 3 days 07/04/18 11:14 Blood - Peripheral Anaerobic Blood Culture - Preliminary No growth in 3 days 07/04/18 11:08 Blood - Peripheral Aerobic Blood Culture - Preliminary No growth in 3 days 07/04/18 11:08 Blood - Peripheral Anaerobic Blood Culture - Preliminary No growth in 3 days <Jonna Laureano - Last Filed: 07/07/18 18:41> Assessment and Plan (1) Liver failure without hepatic coma Status: Acute Code(s): K72.90 - Hepatic failure, unspecified without coma - Plan Assessment: - Elevated LFTs with question of cirrhosis given thrombocytopenia and hypoalbuminemia Pt denies any personal or known family history of liver issues. Denies ETOH and history of. Only OTC medication she takes is Vit D and ASA 81 mg daily. New prescriptions from March are Pepcid and Mirtazapine. Of note, LFTs increased significantly on 07/02- hypotension 86/53- multifactorial ? shocked liver also pt currently being treated for CAP Liver work up: Liver US--> Normal echotexture without focal lesion or ductal dilatation of the liver. CT abdomen and pelvis WO IV contrast --> There is consolidation in the right lower lobe with air bronchograms and small right effusion. The findings could indicate pneumonia. The liver is unremarkable in appearance on this noncontrast exam. There is no focal abnormality. Mild diverticulosis. Simple cyst extending off the lower pole of left kidney. Hepatitis panel negative. Pending: DOMONIQUE, AMA, ASMA, ceruloplasmin, iron profile (07/06) Liver work up still pending. No changes overnight. Pt states she is being discharged today when her ride arrives. 07/07/2018 patient's liver enzymes continue to decrease and now AST 71, ALT 415, normal bilirubin is 0.4, normal alkaline phosphatase 13 and hemoglobin stable at 9.7. Elevated liver enzymes could be related to shock liver versus medications versus obstruction although that was not seen patient will need to have copies of her labs so she can follow-up back in her hometown with her bowling ball finisher and family practitioner. Okay from a GI standpoint for patient to discharge. Spoke to patient and explained again her needs for follow -up when she gets back home Plan: Diet as tolerated Increase mobility is much as possible, out of bed up in chair Monitor labs liver workup is in process but patient's LFTs are declining, improvement Patient was seen per myself and Dr. Laureano, note was written on his behalf <Michelle Waggoner - Last Filed: 07/07/18 13:04> (1) Liver failure without hepatic coma Status: Acute Code(s): K72.90 - Hepatic failure, unspecified without coma - Attending Attestation Agree with above, will need outpatient follow up. <Jonna Laureano - Last Filed: 07/07/18 18:41>
[2018-07-07 13:21] VITALS: BP 120/59; RESP 18; TEMP 98.8; O2SAT 92
[2018-07-07 19:54] LABS: Varicella Zoster IgG <135.00 INDEX (Negative)
--- NOTE | 2018-07-08 07:12 | P.DS ---
Date of admission: 07/03/18 13:06 Primary care physician: UNKNOWN Brief History from admission: 88 year old F on vacation from [place] with history of CVA x3, most recently 1 month ago, hypothyroidism and rheumatoid arthritis, who presented to the ED for syncopal episode this afternoon just after getting out of a hot tub. Per patient , she felt faint and lightheaded before passing out. She is unsure of how long she lost consciousness, but states it was witnessed. No fall or head trauma. Patient was to be discharged from the ED, but just prior to leaving experienced another syncopal episode while transferring from bed to wheelchair, stating that she felt weak all over and nauseated. Denies current headache, lightheadedness, nausea, vomiting, rapid heart rate, CP, shortness of breath, numbness or tingling. Denies recent fevers, sinus pain, nasal congestion, runny nose, sore throat, diarrhea or dysuria. Patient has a chronic urinary incontinence. Patient is vacationing in [place], from [place] and is adamant that she cannot miss her flight back home tomorrow at 11AM. Patient is willing to stay in the hospital overnight for further observation and testing, but notes that she will be leaving in time for her flight. She is scheduled to she her PCP, Dr. Agus Aleman and tong hooker in [place] in the coming week. Per patient, she is supposed to be getting worked up for possible unspecified heart murmur. She has a history of CVA x3 with, most recently 1 month ago. She states that she experienced significant weakness in bilateral upper and lower extremities and slurred speech. Underwent extensive PT/OT/speech therapy following most recent stroke. She states that today's symptoms do not feel like past CVA. She is unsure if she sees a neurologist for her history of CVA or team manager for hypothyroidism. Update: 07/01/18 at 23:15pm Paged by [employer] who stated that patient is refusing to undergo carotid US. Spoke to patient, who states that she "just doesn't think she needs any of this done", however she is agreeable to stay in the hospital overnight. She states that she "has a history of arthritis", has gotten imaging of the neck 2 times in the last year back in [place] and does not believe that her insurance will pay for this testing. She states that she is apparently scheduled to get similar testing done at next doctor's appointment, therefore doesn't need imaging of her neck. I explained to her that the carotid ultrasound is to evaluate the blood vessels of the neck for plaques or clot that could be causing syncopal episodes, rather than structural components of the neck associated with arthritis. Patient voiced understanding about risks and benefits of getting carotid US, but continues to decline examination at this time. She continues to be concerned about missing her flight tomorrow morning states that she "will be getting all of this testing done at her upcoming doctor 's appointments, so she doesn't need it done in the hospital today". She states that she is agreeable to further blood testing and EKG as necessary, but also states that she does not want to be bothered for the rest of the night. DS: Diagnosis - Discharge Diagnosis (1) Elevated LFTs Status: Resolved (2) Thrombocytopenia Status: Acute (3) Pneumonia involving right lung Status: Acute (4) Oxygen desaturation Status: Acute (5) ARGELIA (acute kidney injury) Status: Acute (6) Syncope Status: Resolved (7) Elevated troponin Status: Acute (8) Hyperglycemia Status: Acute (9) Hypothyroidism Status: Chronic (10) History of CVA (cerebrovascular accident) Status: Chronic (11) History of cardiac murmur Status: Chronic (12) Low hemoglobin Status: Acute (13) History of gastroesophageal reflux (GERD) Status: Chronic (14) Nutrition, metabolism, and development symptoms Status: Acute (15) DVT prophylaxis Status: Acute DS: Medications - Discharge Medications Prescriptions: RX: albuterol sulfate 2 puff INHALATION Q6H PRN 30 Days #2 inhaler PRN Reason: Shortness Of Breath furosemide [Lasix] 20 mg PO DAILY 5 Days #5 tab RX: levofloxacin 750 mg PO DAILY 3 Days #3 tab DS: Summary Hospital Course: 88-year-old female with a past medical history of hypothyroidism and CVA admitted for syncopal episodes. Upon admission she was found to have elevated LFTs, oxygen desaturations, ARGELIA, and hyperglycemia. Patient was seen by GI for elevated LFTs and on the day of discharge patient's AST was 71 and ALT 415 with a normal bilirubin and alk phosphatase. Her abdominal imaging was within normal limits. Elevated LFTs were thought to be due to shock liver versus medications versus obstruction. She was to follow-up with a GI specialist in [place]. Patient also had oxygen desaturations in the mid 80s. She was found to have pneumonia and pleural effusion on the right. She was started on aztreonam and levofloxacin as she is allergic to penicillins. She was also started on Lasix 20 mg twice daily for her pleural effusion. She was also sent home with oxygen at 2 L.. Patient's creatinine was found to be elevated as well. She denied any history of chronic kidney disease. Her creatinine ranged from 0.96-1.24. She was instructed to follow-up with her primary care doctor or nephrology in [place]. Patient was also found to be hyperglycemic. She has a hemoglobin A1c of 6.3. She denied any history of diabetes or diabetes medications. - Time Spent with Patient Total time spent providing and/or coordinating discharge services: Greater than 30 minutes - Quality: VTE Deep Vein Thrombosis/Pulmonary Embolism Present on Admission: No Exam Vital signs: Vital Signs 07/07/18 08:00 07/07/18 09:15 07/07/18 10:03 Temperature 98.2 F Pulse Rate 74 103 H 83 Respiratory Rate 16 24 Blood Pressure 160/68 H Pulse Oximetry 90 L 91 L Pulse Oximetry [Resting on Room Air] Pulse Oximetry [Resting with Oxygen] 07/07/18 10:15 07/07/18 12:00 07/07/18 13:03 Temperature 98.8 F Pulse Rate 99 H 99 H Respiratory Rate 18 Blood Pressure 120/59 L Pulse Oximetry 92 L Pulse Oximetry [Resting on Room Air] 86 L Pulse Oximetry [Resting with Oxygen] 92 L Intake & Output 07/07/18 07/08/18 07/08/18 18:59 06:59 18:59 Intake Total 100 / 100 Balance 100 / 100 Intake: IV 100 / 100 Azactam Inj 2 GM In NS Inj 100 100 / 100 ML @ 200 mls/hr IV.SIG Q8H [facility] Rx#:[id number] Results Procedures completed during hospitalization: none Labs on day of discharge: Labs from last 24 hours 07/07/18 07/07/18 07/03/18 07:35 07:33 14:09 WBC 13.8 H RBC 3.11 L Hgb 9.7 L Hct 30.0 L MCV 96.6 MCH 31.4 MCHC 32.5 RDW 19.8 H Plt Count 185 MPV 9.5 Prelim Diff (Auto) Slide review pending Neut % (Auto) 60.6 Lymph % (Auto) 31.6 Bland % (Auto) 5.5 Eos % (Auto) 1.9 Baso % (Auto) 0.4 Neut # (Auto) 8.4 H Lymph # (Auto) 4.4 [place]land # (Auto) 0.8 Eos # (Auto) 0.3 Baso # (Auto) 0.1 WBC Differential Manual diff final Seg Neuts % (Manual) 74 H Band Neuts % (Manual) 1 Lymphocytes % (Manual) 18 Monocytes % (Manual) 2 Eosinophils % (Manual) 1 Metamyelocytes % (Man) 1 Myelocytes % (Man) 3 H Abs Neuts (Manual) 10.9 H Nucleated RBCs/100 WBC 1 H Differential Comment . Platelet Estimate Normal Platelet Morphology Normal Sodium 145 Potassium 3.7 Chloride 107 Carbon Dioxide 28.3 Anion Gap 10 BUN 24 H Creatinine 1.12 H Estimated GFR 46 L Random Glucose 78 Calcium 7.9 L Total Bilirubin 0.4 AST 71 H ALT 415 H Alkaline Phosphatase 113 Total Protein 5.8 L Albumin 2.5 L Ceruloplasmin 47 HCV RNA (PCR) IUs/ml HCV RNA PCR log IUs/ml VZV IgG Antibody VZV IgM Antibody 07/03/18 07/03/18 14:09 14:09 WBC RBC Hgb Hct MCV MCH MCHC RDW Plt Count MPV Prelim Diff (Auto) Neut % (Auto) Lymph % (Auto) [place] % (Auto) Eos % (Auto) Baso % (Auto) Neut # (Auto) Lymph # (Auto) [place] # (Auto) Eos # (Auto) Baso # (Auto) WBC Differential Seg Neuts % (Manual) Band Neuts % (Manual) Lymphocytes % (Manual) Monocytes % (Manual) Eosinophils % (Manual) Metamyelocytes % (Man) Myelocytes % (Man) Abs Neuts (Manual) Nucleated RBCs/100 WBC Differential Comment Platelet Estimate Platelet Morphology Sodium Potassium Chloride Carbon Dioxide Anion Gap BUN Creatinine Estimated GFR Random Glucose Calcium Total Bilirubin AST ALT Alkaline Phosphatase Total Protein Albumin Ceruloplasmin HCV RNA (PCR) IUs/ml Less than 15 HCV RNA PCR log IUs/ml Less than 1.18 VZV IgG Antibody <135.00 VZV IgM Antibody 0.12 Preliminary micro results at discharge 07/04/18 11:14 Aerobic Blood Culture - Preliminary Blood - Peripheral No growth in 3 days Anaerobic Blood Culture - Preliminary No growth in 3 days 07/04/18 11:08 Aerobic Blood Culture - Preliminary Blood - Peripheral No growth in 3 days Anaerobic Blood Culture - Preliminary No growth in 3 days - Impressions ITS Impressions Head CT 07/01/18 14:28 CONCLUSION: 1. No acute abnormality. Extensive white matter atrophic changes. . Liver Ultrasound 07/02/18 00:00 CONCLUSION: 1. No abnormality seen to account for the patient's clinical presentation. Abdomen/Pelvis CT 07/03/18 00:00 CONCLUSION: 1. There is consolidation in the right lower lobe with air bronchograms and small right effusion. The findings could indicate pneumonia. 2. The liver is unremarkable in appearance on this noncontrast exam. There is no focal abnormality. 3. Mild diverticulosis. 4. Simple cyst extending off the lower pole of left kidney. Chest X-Ray 07/06/18 00:00 CONCLUSION: Right pleural effusion and elevation of the right hemidiaphragm is stable. Discharge Plan - Discharge Disposition Patient Disposition: 01 Discharge Home - Discharge Condition Condition: Stable - Discharge Order Discharge Orders: Discharge Order (Routine); Ordered 07/07/18 Ordered By: Jaelyn Turner - Discharge Details Anticipated Discharge Date: 07/07/18 Discharge Comment: Call MD with results of O2 test, may need d/c on O2 tank - Physicians Team Primary Care Provider: UNKNOWN, Attending Provider: Michelle Strauss Other Providers: Jonna Laureaon MD
== END 2018-07-07 15:28 | disposition home or self-care (01) ==
LOC: NEDA 14:01 → NEPC 14:01 → NEPGCP 07-02 00:25 → N05 07-04 16:23
PROVIDERS: ADMIT Family Medicine; ATTEND Family Medicine